=== PATIENT | female | born 1950 | race Two or more races ===

== ENCOUNTER 2019-08-24 09:59 | Inpatient (IN) | payer OTHER ==
[2019-08-24] MEDS ORDERED: ceFAZolin SODIUM 1 GM VIAL ONE ×2 (10:23→17:26)
[2019-08-24] MEDS ORDERED: SODIUM CHLORIDE 0.9% P/F 10 ML VIAL IJ ONE (10:23)
[2019-08-24] MEDS ORDERED: VANCOMYCIN 1,000 MG VIAL (RESTRICTED TO ID ONLY) ONE (10:24)
[2019-08-24] MEDS ORDERED: HEPARIN NA (PORCINE) 5,000 UNITS/ML 1ML VIAL ONE ×2 (11:16→12:45)
[2019-08-24] MEDS ORDERED: THROMBIN (BOVINE) 5,000 UNIT VIAL TP ONE ×2 (11:17→13:40)
[2019-08-24] MEDS ORDERED: DEXAMETHASONE SOD PHOSPHATE/PF 10 MG/ML SDV ONE (11:37)
[2019-08-24] MEDS ORDERED: MIDAZOLAM HCL 2 MG/2 ML SINGLE DOSE VIAL ONE ×2 (11:49)
[2019-08-24] MEDS ORDERED: fentaNYL CITRATE 250 MCG/5 ML VIAL ONE (12:01)
[2019-08-24] MEDS ORDERED: PROPOFOL 20 ML ONE ×11 (12:02→14:19)
[2019-08-24] MEDS ORDERED: ceFAZolin SODIUM 1 GM VIAL IVPB ONE (12:35)
[2019-08-24] MEDS ORDERED: VANCOMYCIN 1,000 MG VIAL (RESTRICTED TO ID ONLY) IVPB ONE (12:35)
[2019-08-24] MEDS ORDERED: HYDROmorphone HCl 2 MG/ML VIAL ONE (12:38)
[2019-08-24] MEDS ORDERED: ACETAMINOPHEN 1000 MG/100 ML VIAL (NON FORMULARY) IVPB ONE (12:49)
[2019-08-24] MEDS ORDERED: ONDANSETRON 4 MG/2 ML VIAL IVPUSH PRN ×2 (12:49→15:43)
[2019-08-24] MEDS ORDERED: LACTATED RINGERS SOLUTION 1,000 ML IV SCH ×2 (13:00→15:45)
[2019-08-24] MEDS ORDERED: TRANEXAMIC ACID 1000 MG/10 ML VIAL ONE (13:02)
[2019-08-24] MEDS ORDERED: ALBUTEROL SO4 HFA INHALER IH ONE (13:19)
[2019-08-24] MEDS ORDERED: BENZOIN/ALOE VERA/STORAX/TOLU 58 ML BOTTLE ONE (14:17)
[2019-08-24] MEDS ORDERED: oxyCODONE HCL 5 MG TABLET PO PRN ×2 (15:43)
--- NOTE | 2019-08-24 15:55 | PN ---
Progress Note (short form) - Note Progress Note: 69F s/p CARLOS ENRIQUE C4-C5 and C5-C6 ACDF POD #0. -Airway observation: In case of emergency, remove anterior cervical spine dressing and pull out running suture; ok to cut suture if needed to decompress hematoma. -Maintain head of bed 30-45 degrees. -Pain medication: per anaesthesia team; oral meds, no CLIENT SERVICE EXECUTIVE; NO NSAID's. -Hard c-collar. -DVT PPx: -Mechanical only: LUIS's, SCD's. -Post-op Ancef x 3 doses. -f/u AM labs. -Incentive spirometry. -PT/OT/Rehab, OOB. -PWB B/L UE: 5lbs. -WBAT B/L LE. -d/c Guillermo catheter at midnight tonight; TOV (8 hours max). -Keep dressing clean & dry. -No heavy lifting (>5 lbs), bending or twisting x 6 months post op. -Start with soft diet; advance diet as tolerated. -B/L UE & LE NV checks. -Care per ICU & medical hospitalist teams. -Discharge planning: f/u [facility] [place] office 09/03/2019; call for appointment; . Ramon Tanner MD (Orthopaedic Surgery).
--- NOTE | 2019-08-24 15:57 | OP ---
Operative Note - Note: Operative Date: 08/24/19 Pre-Operative Diagnosis: 1. C6 radiculopathy. 2. Cervical myelopathy. 3. Segmental instability (spondylolisthesis C5-C6) Operation: 1. CARLOS ENRIQUE C4-C5. 2. C5-C6 ACDF Implants: Cage: RTI Fortilink #[id number]. Plate: Precision Spine Slimplicity 14mm. Screws: 3 x 4.5x12mm, 1 x 4x12mm Post-Operative Diagnosis: Same as Pre-op Surgeon: Ramon Tanner Dustless Operator: Blanco Tanner Anesthesiologist/GAS SYSTEMS WORKER: Diane Orosco Anesthesia: General Specimens Removed: Old hardware. C5-C6 disc Estimated Blood Loss (mls): 50 Drains & Tubes with Location: 1 x deep HemoVac Fluid Volume Replaced (mls): 1,200 (Crystalloid) Operative Report Dictated: Yes
[2019-08-24] MEDS ORDERED: ALBUTEROL SO4 0.083% IH SOL 2.5 MG/3 ML VIAL.NEB. NEB ONE ×2 (16:00→16:28)
[2019-08-24] MEDS ORDERED: ACETAMINOPHEN INJECTION 100 ML IVPB ONE (17:26)
[2019-08-24] MEDS ORDERED: HYDROmorphone *PCA* 10MG/50ML DISP.SYRIN ONE (17:26)
[2019-08-24] MEDS: HYDROmorphone *PCA* 10MG/50ML DISP.SYRIN PCA SCH (17:45)
[2019-08-24] MEDS: CEFAZOLIN 1 GM in DEXTROSE 5%-WATER - 50 ML IVPB SCH (17:55)
--- NOTE | 2019-08-24 19:34 | CONSULT ---
Consultation: REQUESTING PROVIDER: CONSULT REQUEST: We have been asked to medically evaluate this patient for (specify). neuro checks and airway management s/p cervical surgery by Dr. Tanner HISTORY OF PRESENT ILLNESS: 69 y/o F hx of COPD, Asthma, fibromyalgia, GERD diveritulitis, anxiety, HTN, HLD s/p C4-C5 anterior cervical discectomy and fusion, partial corpectomy C5-C6 POD 0. This is her second surgery on her cervical spine after previous surgery 4 years ago for herniated disc s/p injury about 10 years ago. She continued to experience neck pain as well as weakness in her left arm. Prior to this surgery, pt had been managed chronically on pain medication (percocet). She denies any fevers, chills, nausea, vomiting, abscess or swelling in the neck. At time of evaluation patient was sitting up in bed drinking clear fluids. REVIEW OF SYSTEMS: CONSTITUTIONAL: Absent: fever, chills, diaphoresis, generalized weakness, malaise, loss of appetite, weight change HEENT: Absent: rhinorrhea, nasal congestion, throat pain, throat swelling, difficulty swallowing, mouth swelling, ear pain, eye pain, visual changes CARDIOVASCULAR: Absent: chest pain, syncope, palpitations, irregular heart rate, lightheadedness, peripheral edema RESPIRATORY: present: cough Absent: shortness of breath, dyspnea with exertion, orthopnea, wheezing, stridor, hemoptysis GASTROINTESTINAL: Absent: abdominal pain, abdominal distension, nausea, vomiting, diarrhea, constipation, melena, hematochezia GENITOURINARY: Absent: dysuria, frequency, urgency, hesitancy, hematuria, flank pain, genital pain MUSCULOSKELETAL: Absent: myalgia, arthralgia, joint swelling, back pain, neck pain SKIN: Absent: rash, itching, pallor HEMATOLOGIC/IMMUNOLOGIC: Absent: easy bleeding, easy bruising, lymphadenopathy, frequent infections ENDOCRINE: Absent: unexplained weight gain, unexplained weight loss, heat intolerance, cold intolerance NEUROLOGIC: Absent: headache, focal weakness or paresthesias, dizziness, unsteady gait, seizure, mental status changes, bladder or bowel incontinence PSYCHIATRIC: Absent: anxiety, depression, suicidal or homicidal ideation, hallucinations. PHYSICAL EXAMINATION Vital Signs - 24 hr 08/24/19 08/24/19 10:35 18:25 Temperature 98.4 F 96.8 F L Pulse Rate 78 94 H Respiratory 18 16 Rate Blood Pressure 140/72 111/77 O2 Sat by Pulse 94 L Oximetry (%) GENERAL: Awake, alert, and fully oriented. pain is 8/10 HEAD: Normal with no signs of trauma. EYES: Pupils equal, round and reactive to light, extraocular movements intact, sclera anicteric, conjunctiva clear. No lid lag. EARS, NOSE, THROAT: Ears normal, nares patent, oropharynx clear without exudates. Moist mucous membranes. NECK: hard c-collar around neck. wound dressing on anterior neck. no hematoma/swelling noted. LUNGS: rhonchi bilaterally HEART: Regular rate and rhythm, normal S1 and S2 without murmur, rub or gallop. ABDOMEN: Soft, nontender, not distended, normoactive bowel sounds, no guarding, no rebound, no masses. No hepatomegaly or splenomegaly. UPPER EXTREMITIES: 2+ pulses, warm, well-perfused. No cyanosis. No clubbing. Cap refill <2 seconds. No peripheral edema.4/5 strength left. 5/5 strength right LOWER EXTREMITIES: 2+ pulses, warm, well-perfused. No calf tenderness. No peripheral edema.4/5 strength on the left with diminished sensation. 5/5 strength on the right NEUROLOGICAL: Cranial nerves II-XII intact. Normal speech. PSYCHIATRIC: Cooperative. Good eye contact. Appropriate mood and affect. SKIN: Warm, dry, normal turgor, erythema in lower abdominal skin folds bilaterally, no crusting/vesicles observed. Laboratory Results - last 24 hr 08/24/19 08/24/19 10:11 11:40 Blood Type O POSITIVE O POSITIVE Antibody Screen Negative Active Medications Generic Name Dose Route Start Last Admin Trade Name Freq PRN Reason Stop Dose Admin Atorvastatin Calcium 40 mg 08/24/19 22:00 Lipitor - PO HS ERIC Baclofen 10 mg 08/24/19 22:00 Lioresal - PO TID ERIC Fentanyl 50 mcg 08/24/19 12:49 08/24/19 17:00 Sublimaze Injection - IVPUSH 50 mcg [id number] PRN Administration PAIN-PACU ORDER X 4 DOSES ONLY Hydromorphone HCl 10 mg 08/24/19 13:00 08/24/19 17:45 Hydromorphone 10 Mg/50 Ml-Ns FIREWORKS DISPLAY SPECIALIST 08/31/19 12:49 10 mg FIREWORKS DISPLAY SPECIALIST ERIC Administration Protocol Cefazolin Sodium 1 gm/ 50 mls @ 100 mls/hr 08/24/19 18:00 08/24/19 17:55 Dextrose IVPB 08/25/19 06:29 50 mls Q6H ERIC Administration Lactated Ringer's 1,000 mls @ 125 mls/hr 08/24/19 15:45 08/24/19 17:45 Lactated Ringers Solution IV 65 mls ASDIR ERIC Administration Losartan Potassium 25 mg 08/25/19 10:00 Cozaar - PO DAILY ERIC Non-Formulary Medication 600 mg 08/24/19 22:00 Gabapentin [Gabapentin] PO HS ERIC Olanzapine 100 mg 08/24/19 22:00 Zyprexa - PO HS ERIC Ondansetron HCl 4 mg 08/24/19 12:49 Zofran Injection IVPUSH Q6H PRN NAUSEA AND/OR VOMITING Ondansetron HCl 4 mg 08/24/19 15:43 Zofran Injection IVPUSH Q6H PRN NAUSEA AND/OR VOMITING Oxycodone HCl 5 mg 08/24/19 15:43 Roxicodone - PO Q4H PRN PAIN LEVEL 1-5 Oxycodone HCl 10 mg 08/24/19 15:43 Roxicodone - PO 08/25/19 15:42 Q4H PRN PAIN LEVEL 6-10 Primidone 50 mg 08/24/19 22:00 Mysoline - PO HS ERIC Sertraline HCl 100 mg 08/24/19 22:00 Zoloft - PO HS [facility] ASSESSMENT/PLAN: Dispo: We will continue to follow the patient. Thank you for this consultative opportunity. Neuro -Maintain head of bed 30-45 degrees. -Pain medication: per anaesthesia team; oral meds, no FIREWORKS DISPLAY SPECIALIST; NO NSAID's. -Hard c-collar. -Keep dressing clean & dry. -B/L UE & LE NV checks. -No heavy lifting (>5 lbs), bending or twisting x 6 months post op. Pulm -Incentive spirometry -CXR -Duonebs treatment -Sputum culture and legionella antigen a.m labs - ID post-op Ancef x 3 doses per f/u AM labs. -d/c Guillermo catheter at midnight tonight; TOV (8 hours max). MSK -PT/OT/Rehab, OOB. -PWB B/L UE: 5lbs. -WBAT B/L LE. -DVT PPx: Mechanical only: LUIS's, SCD's. FEN -IV fluids as needed -monitor lytes -Start with soft diet; advance diet as tolerated. Visit type - Emergency Visit Emergency Visit: No - New Patient This patient is new to me today: Yes Date on this admission: 08/24/19 - Critical Care Critical Care patient: No ATTENDING PHYSICIAN STATEMENT I saw and evaluated the patient. I reviewed the resident's note and discussed the case with the resident. I agree with the resident's findings and plan as documented. SUBJECTIVE: OBJECTIVE: ASSESSMENT AND PLAN:
[2019-08-24] MEDS ORDERED: ALBUTEROL SO4 2.5/IPRATROPIUM 0.5 INH SOL 3 ML VIAL.NEB. NEB PRN (20:16)
[2019-08-24] MEDS ORDERED: ALBUTEROL SO4 0.083% IH SOL 2.5 MG/3 ML VIAL.NEB. NEB PRN (20:20)
--- NOTE | 2019-08-24 21:04 | HP ---
HISTORY OF PRESENT ILLNESS: 69 F h/o COPD not on O2, Asthma, fibromyalgia, GERD diveritulitis, anxiety, HTN , HLD s/p C4-C5 anterior cervical discectomy and fusion, partial corpectomy C5- C6 POD 0. Patient endorses this is her second surgery for refractory neck and L arm pain, on chronic opioids. She continued to experience neck pain as well as weakness in her left arm. Pt. denies fevers, chills, nausea, vomiting, hard C collar placed. Patient endorses being on Prednisone x3 days for COPDE prophylaxis, has had a cough 2 weeks ago which is mildly productive denies overt SOB/CP. Recent Travel: denies PAST MEDICAL HISTORY: as above PAST SURGICAL HISTORY: C4/C5 disectomy Social History: Smoking: former cigarette smoker Alcohol: denies Drugs: denies Allergies Penicillins Allergy (Intermediate, Verified 08/20/19 09:57) Rash HOME MEDICATIONS: Home Medications Medication Instructions Recorded Atorvastatin Ca [Lipitor] 40 mg PO HS 08/20/19 Baclofen 10 mg PO TID 08/20/19 Gabapentin 600 mg PO HS 08/20/19 Losartan Potassium 25 mg PO DAILY 08/20/19 Olanzapine [Zyprexa] 100 mg PO HS 08/20/19 Oxycodone HCl/Acetaminophen 1 each PO Q6H PRN 08/20/19 [Percocet 10-325 mg Tablet] Primidone 50 mg PO HS 08/20/19 Sertraline HCl [Zoloft -] 100 mg PO HS 08/20/19 Prednisone 10 mg PO DAILY 08/24/19 REVIEW OF SYSTEMS CONSTITUTIONAL: Absent: fever, chills, diaphoresis, generalized weakness, malaise, loss of appetite, weight change HEENT: Absent: rhinorrhea, nasal congestion, throat pain, throat swelling, difficulty swallowing, mouth swelling, ear pain, eye pain, visual changes CARDIOVASCULAR: Absent: chest pain, syncope, palpitations, irregular heart rate, lightheadedness , peripheral edema RESPIRATORY: Absent: cough, shortness of breath, dyspnea with exertion, orthopnea, wheezing, stridor, hemoptysis GASTROINTESTINAL: Absent: abdominal pain, abdominal distension, nausea, vomiting, diarrhea, constipation, melena, hematochezia GENITOURINARY: Absent: dysuria, frequency, urgency, hesitancy, hematuria, flank pain, genital pain MUSCULOSKELETAL: Absent: myalgia, arthralgia, joint swelling, back pain, neck pain SKIN: Absent: rash, itching, pallor HEMATOLOGIC/IMMUNOLOGIC: Absent: easy bleeding, easy bruising, lymphadenopathy, frequent infections ENDOCRINE: Absent: unexplained weight gain, unexplained weight loss, heat intolerance, cold intolerance NEUROLOGIC: L arm pain, neck pain Absent: headache, focal weakness or paresthesias, dizziness, unsteady gait, seizure, mental status changes, bladder or bowel incontinence PSYCHIATRIC: Absent: anxiety, depression, suicidal or homicidal ideation, hallucinations. PHYSICAL EXAMINATION Vital Signs - 24 hr 08/24/19 08/24/19 08/24/19 10:35 15:46 16:00 Temperature 98.4 F 97.7 F Pulse Rate 78 101 H 102 H Respiratory 18 20 15 Rate Blood Pressure 140/72 167/63 163/70 O2 Sat by Pulse 94 L 89 L 92 L Oximetry (%) 08/24/19 08/24/19 08/24/19 16:15 16:30 16:45 Temperature Pulse Rate 97 H 97 H 97 H Respiratory 15 15 16 Rate Blood Pressure 163/71 163/71 159/68 O2 Sat by Pulse 92 L 92 L 94 L Oximetry (%) 08/24/19 08/24/19 18:15 18:25 Temperature 99.1 F 96.8 F L Pulse Rate 89 94 H Respiratory 15 16 Rate Blood Pressure 125/58 L 111/77 O2 Sat by Pulse 94 L Oximetry (%) GA comfortable, hard C collar placed, NAD, AAox3, speaking in full sentences HEENT NC/AT, EOMI, no visible hematoma/swelling of neck, dry MM Chest CTAB, no crackles or wheezing CVS S1, S2+, RRR Abd obese, Soft, NT Ext NO LE edema, no calf tenderness Laboratory Results - last 24 hr 08/24/19 08/24/19 10:11 11:40 Blood Type O POSITIVE O POSITIVE Antibody Screen Negative ASSESSMENT/PLAN: 69 F h/o COPD not on O2, asthma, GERD, chronic cervical radiculopathy s/p C4/C5 disectomy POD 0, now presenting w/ mild pain, but VS show low oxygen saturations despite being on 3L NC. Cervical discectomy and fusion of C4/C5 Keep hard C collar, monitor airway, supplement bowel regimen Pain control w/ PO opioids, monitor breathing Rest of management per surgery recommendations Hypoxemia Good wave form appreciated on O2 sat monitor, still hypoxic 92-93% on 3L, no tachycardia Obtain CXR to rule out PNA, incentive spirometry, hold off abx for now until CXR obtained, send Chem/CBC, ?atelectasis, patient not wheezing right now Duonebs PRN, continue Prednisone 40mg PO to complete 5 day course Continue to monitor in ICU for airway compromise COPD Duonebs PRN Supplement NC 3L O2 Complete Prednisone course to complete 5 days Anxiety/Depression Restart psych meds GERD cont. PPI HTN Restart home BP meds DVT ppx: LUIS/SCD FEN: gentle IVF, chem daily, Na restricted diet Family Medical History Family History: Denies Visit type - Emergency Visit Emergency Visit: No - New Patient This patient is new to me today: Yes Date on this admission: 08/24/19 - Critical Care Critical Care patient: Yes Total Critical Care Time (in minutes): 30 Critical Care Statement: The care of this patient involved high complexity decision making to prevent further life threatening deterioration of the patient 's condition and/or to evaluate & treat vital organ system(s) failure or risk of failure.
[2019-08-24] MEDS ORDERED: PT OWN MED DRAWER 7, Y5N ONE (21:05)
[2019-08-24] MEDS ORDERED: OLANZapine 5 MG TABLET PO SCH (22:00)
[2019-08-24] MEDS ORDERED: SERTRALINE HCL 50 MG TABLET (FP) PO SCH (22:00)
[2019-08-24] MEDS ORDERED: GABAPENTIN 300 MG CAPSULE PO SCH (22:00)
[2019-08-24] MEDS ORDERED: ATORVASTATIN CA 40 MG TABLET (FP) PO SCH (22:00)
[2019-08-24] MEDS ORDERED: PRIMIDONE 50 MG TABLET PO SCH (22:00)
[2019-08-24] MEDS ORDERED: PATIENT'S OWN MEDICATION (NON-FORMULARY) (Gabapentin [Gabapentin] 600 MG) PO SCH (22:00)
[2019-08-24] MEDS: POLYETHYLENE GLYCOL 3350 119 GM BTL PO SCH (22:23)
[2019-08-24] MEDS: DOCUSATE SODIUM 100 MG CAPSULE (FP) PO SCH (22:24)
[2019-08-24] MEDS: BACLOFEN 10 MG TABLET (FP) PO SCH (22:25)
[2019-08-24] MEDS: NYSTATIN 100000 UNIT/GM TOPICAL OINTMENT 15 GM TUBE TP SCH (22:25)
[2019-08-25] MEDS: CEFAZOLIN 1 GM in DEXTROSE 5%-WATER - 50 ML IVPB SCH ×2 (00:03→05:15)
[2019-08-25] MEDS: predniSONE 20 MG TABLET (UD) PO SCH ×2 (00:07→09:14)
[2019-08-25] MEDS ORDERED: ZOLPIDEM TARTRATE 5 MG TABLET PO PRN (00:16)
[2019-08-25] MEDS ORDERED: ceFAZolin SODIUM 1 GM VIAL ONE (05:13)
[2019-08-25] MEDS ORDERED: DEXTROSE 5%-WATER - 50 ML IVPB ONE (05:13)
[2019-08-25] MEDS: BACLOFEN 10 MG TABLET (FP) PO SCH ×3 (05:16→21:54)
[2019-08-25 06:50] LABS: BASO % 0.4 % (0-2.0); HEMATOCRIT 39.8 % (32.4-45.2); HEMOGLOBIN 12.8 GM/dL (10.7-15.3); LYMPH % 7.4 % (8-40); MCH 28.8 pg (25.7-33.7); MCHC 32.3 g/dl (32.0-36.0); MEAN CELL VOLUME 89.1 fl (80-96); MEAN PLT VOLUME 9.2 fl (7.5-11.1); MONO % 2.3 % (3.8-10.2); NEUT % 89.9 % (42.8-82.8); PLATELET COUNT 323 K/MM3 (134-434); RBC 4.47 M/mm3 (3.60-5.2); RDW 15.4 % (11.6-15.6); WHITE BLOOD COUNT 15.5 K/mm3 (4.0-10.0)
[2019-08-25 07:26] LABS: BILIRUBIN,TOTAL 0.1 mg/dL (0.2-1); CALCIUM 8.3 mg/dL (8.5-10.1); CREATININE 0.9 mg/dL (0.55-1.3); MAGNESIUM 2.2 mg/dL (1.8-2.4); PHOSPHOROUS 4.4 mg/dL (2.5-4.9); POTASSIUM 4.6 mmol/L (3.5-5.1); TOT PROT 6.6 g/dl (6.4-8.2)
[2019-08-25] MEDS ORDERED: PT OWN MED DRAWER 7, Y5N ONE ×3 (09:12→21:22)
[2019-08-25] MEDS: POLYETHYLENE GLYCOL 3350 119 GM BTL PO SCH (09:14)
[2019-08-25] MEDS: DOCUSATE SODIUM 100 MG CAPSULE (FP) PO SCH ×2 (09:14→21:53)
[2019-08-25] MEDS: NYSTATIN 100000 UNIT/GM TOPICAL OINTMENT 15 GM TUBE TP SCH ×2 (09:20→21:55)
[2019-08-25] MEDS: HYDROmorphone *PCA* 10MG/50ML DISP.SYRIN PCA SCH ×2 (09:26→13:24)
[2019-08-25] MEDS ORDERED: LOSARTAN POTASSIUM 25 MG TABLET PO SCH (10:00)
--- NOTE | 2019-08-25 11:42 | PN ---
Physical Exam: 69 F h/o COPD not on O2, Asthma, fibromyalgia, GERD diveritulitis, anxiety, HTN , HLD s/p C4-C5 anterior cervical discectomy and fusion, partial corpectomy C5- C6 POD 1. Patient endorses pain controlled, comfortable, O2 sat picked up after incentive spirometry, CXR neg. for PNA. Doing well. GA comfortable, hard C collar placed, NAD, AAox3, speaking in full sentences HEENT NC/AT, EOMI, no visible hematoma/swelling of neck, dry MM Chest CTAB, no crackles or wheezing CVS S1, S2+, RRR Abd obese, Soft, NT Ext NO LE edema, no calf tenderness Vital Signs - 24 hr 08/24/19 08/24/19 08/24/19 15:46 16:00 16:15 Temperature 97.7 F Pulse Rate 101 H 102 H 97 H Respiratory 20 15 15 Rate Blood Pressure 167/63 163/70 163/71 O2 Sat by Pulse 89 L 92 L 92 L Oximetry (%) 08/24/19 08/24/19 08/24/19 16:30 16:45 17:00 Temperature Pulse Rate 97 H 97 H 96 H Respiratory 15 16 17 Rate Blood Pressure 163/71 159/68 151/65 O2 Sat by Pulse 92 L 94 L 94 L Oximetry (%) 08/24/19 08/24/19 08/24/19 17:15 17:30 17:45 Temperature Pulse Rate 97 H 97 H 97 H Respiratory 13 15 16 Rate Blood Pressure 140/69 146/69 129/82 O2 Sat by Pulse 94 L 95 95 Oximetry (%) 08/24/19 08/24/19 08/24/19 18:00 18:15 18:25 Temperature 99.1 F 96.8 F L Pulse Rate 93 H 89 94 H Respiratory 13 15 16 Rate Blood Pressure 128/58 L 128/58 L 111/77 O2 Sat by Pulse 94 L 93 L Oximetry (%) 08/24/19 08/24/19 08/24/19 20:00 21:00 21:40 Temperature Pulse Rate 86 94 H Respiratory 20 18 Rate Blood Pressure 124/70 115/66 O2 Sat by Pulse 96 93 L Oximetry (%) 08/24/19 08/25/19 08/25/19 22:00 00:00 02:00 Temperature 97 F L Pulse Rate 95 H 81 82 Respiratory 18 14 26 H Rate Blood Pressure 127/69 129/67 130/69 O2 Sat by Pulse 94 L Oximetry (%) 08/25/19 08/25/19 08/25/19 04:00 06:00 08:00 Temperature 98.2 F 98.4 F Pulse Rate 79 89 82 Respiratory 17 12 17 Rate Blood Pressure 122/63 112/50 L 110/60 O2 Sat by Pulse 79 L 95 Oximetry (%) 08/25/19 08/25/19 08/25/19 08:13 09:56 10:00 Temperature 98.1 F Pulse Rate 83 63 Respiratory 18 12 Rate Blood Pressure 125/67 125/67 O2 Sat by Pulse 95 94 L Oximetry (%) Laboratory Results - last 24 hr 08/24/19 08/25/19 08/25/19 11:40 06:03 06:03 WBC 15.5 H RBC 4.47 Hgb 12.8 Hct 39.8 MCV 89.1 MCH 28.8 MCHC 32.3 RDW 15.4 Plt Count 323 MPV 9.2 Absolute Neuts (auto) 13.9 H Neutrophils % 89.9 H Lymphocytes % 7.4 L Monocytes % 2.3 L Eosinophils % 0.0 Basophils % 0.4 Nucleated RBC % 0 Sodium 138 Potassium 4.6 Chloride 104 Carbon Dioxide 26 Anion Gap 8 BUN 13.0 Creatinine 0.9 Est GFR (CKD-EPI)AfAm 76.14 Est GFR (CKD-EPI)NonAf 65.70 Random Glucose 171 H Calcium 8.3 L Phosphorus 4.4 Magnesium 2.2 Total Bilirubin 0.1 L AST 21 ALT 19 Alkaline Phosphatase 89 Total Protein 6.6 Albumin 3.0 L Blood Type O POSITIVE Current Medications Generic Name Dose Route Start Last Admin Trade Name Freq PRN Reason Stop Dose Admin Albuterol Sulfate 1 amp 08/24/19 20:20 08/25/19 04:00 Ventolin 0.083% Nebulizer Soln - NEB 1 amp Q4H PRN Administration SHORT OF BREATH/WHEEZING Albuterol/Ipratropium 1 amp 08/24/19 20:16 Duoneb - NEB Q4H PRN SHORTNESS OF BREATH Atorvastatin Calcium 40 mg 08/24/19 22:00 08/24/19 22:24 Lipitor - PO 40 mg HS ERIC Administration Baclofen 10 mg 08/24/19 22:00 08/25/19 05:16 Lioresal - PO 10 mg TID ERIC Administration Docusate Sodium 100 mg 08/24/19 22:00 08/25/19 09:14 Colace - PO 100 mg BID ERIC Administration Fentanyl 50 mcg 08/24/19 20:06 Sublimaze Injection - IVPUSH Q5M PRN PAIN-PACU ORDER X 4 DOSES ONLY Gabapentin 600 mg 08/24/19 22:00 08/24/19 23:00 Neurontin - PO 600 mg HS ERIC Administration Hydromorphone HCl 10 mg 08/24/19 13:00 08/25/19 09:26 Hydromorphone 10 Mg/50 Ml-Ns MANUSCRIPT EDITOR 08/31/19 12:49 10 mg MANUSCRIPT EDITOR ERIC Administration Protocol Lactated Ringer's 1,000 mls @ 125 mls/hr 08/24/19 15:45 08/24/19 17:45 Lactated Ringers Solution IV 65 mls ASDIR ERIC Administration Losartan Potassium 25 mg 08/25/19 10:00 08/25/19 09:14 Cozaar - PO 25 mg DAILY ERIC Administration Nystatin 1 applic 08/24/19 22:00 08/25/19 09:20 Mycostatin Ointment - TP 1 applic BID ERIC Administration Olanzapine 100 mg 08/24/19 22:00 Zyprexa - PO HS [facility] Ondansetron HCl 4 mg 08/24/19 12:49 Zofran Injection IVPUSH Q6H PRN NAUSEA AND/OR VOMITING Ondansetron HCl 4 mg 08/24/19 15:43 Zofran Injection IVPUSH Q6H PRN NAUSEA AND/OR VOMITING Oxycodone HCl 5 mg 08/24/19 15:43 Roxicodone - PO Q4H PRN PAIN LEVEL 1-5 Oxycodone HCl 10 mg 08/24/19 15:43 Roxicodone - PO 08/25/19 15:42 Q4H PRN PAIN LEVEL 6-10 Polyethylene Glycol 17 gm 08/24/19 20:30 08/25/19 09:14 Miralax (For Daily Use) - PO 17 grams DAILY ERIC Administration Prednisone 40 mg 08/24/19 23:58 08/25/19 09:14 Deltasone - PO 40 mg DAILY ERIC Administration Primidone 50 mg 08/24/19 22:00 08/24/19 22:25 Mysoline - PO 50 mg HS ERIC Administration Sertraline HCl 100 mg 08/24/19 22:00 08/24/19 22:27 Zoloft - PO 100 mg HS ERIC Administration 69 F h/o COPD not on O2, Asthma, fibromyalgia, GERD diveritulitis, anxiety, HTN , HLD s/p C4-C5 anterior cervical discectomy and fusion, partial corpectomy C5- C6 POD 1. Patient endorses pain controlled, comfortable, O2 sat picked up after incentive spirometry, CXR neg. for PNA. Doing well. Cervical discectomy and fusion of C4/C5 Keep hard C collar, monitor airway, supplement bowel regimen Pain control w/ PO opioids, monitor breathing Rest of management per surgery recommendations Hypoxemia Improved with spirometry, CXR neg. for PNA, cont. to monitor Likely due to underlying COPD, atelectasis Duonebs PRN, continue Prednisone 40mg PO to complete 5 day course COPD Duonebs PRN Supplement NC 3L O2 Complete Prednisone course to complete 5 days Anxiety/Depression Restart psych meds Nicotine dependence NRT PRN GERD cont. PPI HTN Restart home BP meds DVT ppx: LUIS/SCD FEN: gentle IVF, chem daily, Na restricted diet Visit type - Emergency Visit Emergency Visit: No - New Patient This patient is new to me today: No - Critical Care Critical Care patient: Yes Total Critical Care Time (in minutes): 30 Critical Care Statement: The care of this patient involved high complexity decision making to prevent further life threatening deterioration of the patient 's condition and/or to evaluate & treat vital organ system(s) failure or risk of failure. - Discharge Referral Referred to [facility] Med [facility] No
--- NOTE | 2019-08-25 13:29 | PN ---
Teaching Attending Note Name of Resident: Adolfo Golden ATTENDING PHYSICIAN STATEMENT I saw and evaluated the patient. I reviewed the resident's note and discussed the case with the resident. I agree with the resident's findings and plan as documented. SUBJECTIVE: Pt seen and examined in the ICU. c/o incisional pain. Reports flatus, tolerating PO. Guillermo out. OBJECTIVE: Vital Signs Period Temp Pulse Resp BP Sys/Murray Pulse Ox Last 24 Hr 96.8 F-99.1 F 63-102 12-26 110-167/50-82 79-96 Intake & Output 08/22/19 08/23/19 08/24/19 08/25/19 23:59 23:59 23:59 23:59 Intake Total 1715 1800 Output Total 1050 1510 Balance 665 290 Weight 74.389 kg Gen: NAD at rest Heart: RRR Lung: decreased breath sounds at the bases Abd: soft, nontender Ext: no edema CBC, BMP 08/25/19 06:03 08/25/19 06:03 Active Medications Albuterol Sulfate (Ventolin 0.083% Nebulizer Soln -) 1 amp NEB Q4H PRN PRN Reason: SHORT OF BREATH/WHEEZING Last Admin: 08/25/19 04:00 Dose: 1 amp Albuterol/Ipratropium (Duoneb -) 1 amp NEB Q4H PRN PRN Reason: SHORTNESS OF BREATH Atorvastatin Calcium (Lipitor -) 40 mg PO HS [facility] Last Admin: 08/24/19 22:24 Dose: 40 mg Baclofen (Lioresal -) 10 mg PO TID [facility] Last Admin: 08/25/19 05:16 Dose: 10 mg Docusate Sodium (Colace -) 100 mg PO BID [facility] Last Admin: 08/25/19 09:14 Dose: 100 mg Fentanyl (Sublimaze Injection -) 50 mcg IVPUSH Q5M PRN PRN Reason: PAIN-PACU ORDER X 4 DOSES ONLY Gabapentin (Neurontin -) 600 mg PO HS [facility] Last Admin: 08/24/19 23:00 Dose: 600 mg Hydromorphone HCl (Hydromorphone 10 Mg/50 Ml-Ns) 10 mg QUALITY ASSURANCE SUPERVISOR BODY QUALITY ASSURANCE SUPERVISOR BODY [facility]; Protocol Stop: 08/31/19 12:49 Last Admin: 08/25/19 13:24 Dose: Not Given Losartan Potassium (Cozaar -) 25 mg PO DAILY [facility] Last Admin: 08/25/19 09:14 Dose: 25 mg Nystatin (Mycostatin Ointment -) 1 applic TP BID [facility] Last Admin: 08/25/19 09:20 Dose: 1 applic Olanzapine (Zyprexa -) 100 mg PO HS [facility] Ondansetron HCl (Zofran Injection) 4 mg IVPUSH Q6H PRN PRN Reason: NAUSEA AND/OR VOMITING Ondansetron HCl (Zofran Injection) 4 mg IVPUSH Q6H PRN PRN Reason: NAUSEA AND/OR VOMITING Oxycodone HCl (Roxicodone -) 5 mg PO Q4H PRN PRN Reason: PAIN LEVEL 1-5 Oxycodone HCl (Roxicodone -) 10 mg PO Q4H PRN PRN Reason: PAIN LEVEL 6-10 Stop: 08/25/19 15:42 Polyethylene Glycol (Miralax (For Daily Use) -) 17 gm PO DAILY [facility] Last Admin: 08/25/19 09:14 Dose: 17 grams Prednisone (Deltasone -) 40 mg PO DAILY [facility] Last Admin: 08/25/19 09:14 Dose: 40 mg Primidone (Mysoline -) 50 mg PO [facility] Last Admin: 08/24/19 22:25 Dose: 50 mg Senna (Senna -) 1 tab PO BID [facility] Sertraline HCl (Zoloft -) 100 mg PO HS [facility] Last Admin: 08/24/19 22:27 Dose: 100 mg ASSESSMENT AND PLAN: Cervical Stenosis with Radiculopathy and Myelopathy s/p CARLOS ENRIQUE C4-C5/C5-C6 ACDF Asthma/COPD HTN Hyperlipidemia Fibromyalgia Anxiety GERD - pain control - incentive spirometry - PO as tolerated - on empiric prednisone - inhaled bronchodilators - O2 to keep SpO2 >90% - rehab/PT - DVT prophylaxis - can monitor on floor
[2019-08-25] MEDS: SENNOSIDES 8.6MG TABLET (FP) PO SCH ×2 (13:59→21:54)
--- NOTE | 2019-08-25 15:56 | OP ---
DATE OF OPERATION: 08/24/2019 SURGEON: Ramon Tanner MD COMBINE INSPECTOR: Blanco Tanner MD PREOPERATIVE DIAGNOSIS: 1. C5-C6 intervertebral disk disorder and adjacent level disease. 2. C5-C6 spinal stenosis. 3. Segmental instability. 4. Previous C4-C5 ACDF. POSTOPERATIVE DIAGNOSIS: 1. C5-C6 intervertebral disk disorder and adjacent level disease. 2. C5-C6 spinal stenosis. 3. Segmental instability. 4. Previous C4-C5 ACDF. SURGICAL PROCEDURE: 1. Removal of hardware. (05559) 2. Inspection of hard fusion mass. (58331) 3. C5-C6 discectomy & anterior arthrodesis. (24465) 4. C5, C6 partial corpectomies. (49077, 38171) 5. Insertion of biomechanical device C5-C6. (02133) 6. C5-C6 anterior instrumentation. (27837) 7. Bone autograft. (25864) 8. Bone allograft. (40490) 9. Microsurgical dissection. (60034) FINDINGS: Solid C4-C5 fusion. IMPLANTS: 1. Cage: FortiLink Tetrafuse #8. 2. Plate: Precision Spine Simplicity 14 mm. 3. Screws: 3 x 4.5x12mm, 1 x 4x12mm. ANESTHESIOLOGIST: Chelsie Garner MD ANESTHESIA: General endotracheal tube anesthesia; Kefzol 2 g, Ancef 1 g and vancomycin, 10 mg of Decadron. POSITION: Supine. INCISION: Right oblique anterior. ESTIMATED BLOOD LOSS: 50cc. INTRAVENOUS FLUID: Crystalloid, 1.2L. SPECIMENS: C5-C6 disc. DRAINS: 1 x deep HemoVac. COMPLICATIONS: None. URINE OUTPUT: See anesthesia record. BACTERIOLOGY: None. CLOSURE: 2-0 Vicryl and 3-0 Biosyn absorbable suture. INDICATIONS: The patient is a 69-year-old female who was indicated for anterior cervical decompression and instrumented fusion to ameliorate symptoms associated with the above-listed diagnoses. The patient was identified in the holding area by her arm band. A long discussion was held with the patient regarding the risks, benefits, and alternatives of the above-named procedure. The risks include, but are not limited to: Pain, bleeding, infection, damage to surrounding structures (including nerves, blood vessels, skin, ligaments, tendons, and bone), dysphagia, dysphonia, nerve palsy, wound complications, pseudarthrosis, failure of fusion, failure of hardware/implants/reduction, need for further surgery, blood clots, myocardial infarction, pulmonary embolism, cerebrovascular event, anesthesia complications, neurological injury, loss of function, and . Benefits as mentioned above. Alternatives include no surgery. All questions were answered. The patient understood and agreed to the procedure. Informed consent was obtained, witnessed, and verified. The patient was taken to the operating room after being seen by the anesthesia and nursing staff. PROCEDURE: The patient was brought into the operating room, placed on the OR table and secured with a safety strap. Consent and the operative site was again verified with the patient and nursing and anesthesia staff. Anesthesia was then administered without complications including 2 g of IV Ancef , 1 g of IV vancomycin, and 1 g of TXA. A time-out was then done led by , the attending surgeon. Baseline IOM readings revealed poor signal amplitudes in the patient's upper and lower extremities. The patient was positioned in the supine position with arms tucked and placed under gentle traction using tape over her shoulders. All bony prominences were very well padded. A bump was placed beneath the scapulae to facilitate extension of the patients neck. A C-arm fluoroscopy unit was positioned perpendicularly to the table and maintained at the level of the head, except when needed. The intended surgical level was confirmed using fluoroscopy, and a deep neck crease in the lines of Bob at this level was targeted for incision. Intra-operative neural monitoring revealed significant improvement in post- positional IOM readings. The operative site was then prepped and draped in the standard sterile fashion using betadine prep and scrub, wiped off with alcohol, and Duraprep applied. Pre-operative imaging was available for intra-operative evaluation. Time-out was again done, and the case began. An oblique anterior incision was made on the right side of the patients neck in the lines of Bob in standard fashion. This was above the original scar, which was on the left side of the anterior neck. Dissection was carried through the investing layer of fascia and finger palpation was used to create a plane lateral to the strap muscles between the carotid sheath and the viscera. Next, the esophagus and trachea were visualized as was the carotid sheath. Hand-held retractors were used to retract these structures safely out of the way , allowing direct access to the anterior cervical spine. The previously placed anterior plate was identified. The prevertebral fascia overlying the anterior cervical spine was then split using peanut swabs. Fibrous tissue overlying the plate was also split using peanut swabs. The anesthesia team then placed a nasogastric tube without difficulty. Gastric juice was successfully aspirated, confirming correct placement of the NG tube. This kept the stomach empty, and allowed us to place the patient in a slight Trendelenburg position. Next, the medial borders of the Longus Coli musculature were gently released over the anterolateral borders of the vertebral bodies and disc spaces using monopolar electrocautery. A self-retaining retractor system was used with the teeth of the blades retracting the belly of the longus coli muscles, and with the retractors themselves safely retracting the carotid sheath laterally and viscera medially. The disk below the plate was identified. There was abundant anterior osteophyte that had grown over the disk space. This osteophyte was resected using a Leksell rongeur. Despite using 2 different screw-removal sets, we did not have a screwdriver that fit the screws fixed within the plate. This was an old instrumentation system. In order to extricate the plate and screws, we used a [employer] Gregg andre with a cadmium cutter andre tip. The soft tissues of the neck were protected with cottonoid's to minimize staining with metal debris. The plate was cut into 4 pieces, each containing a screw. All hardware was then successfully removed using needle drivers. There was no local bone loss or tissue damage during this procedure. The tip of the andre was continuously cooled using saline irrigation throughout use. No neuromonitoring changes noted. The holes from the C4 amd C5 screws were plugged with bone wax. One 12mm Belfry pin was then placed into the center of the vertebral bodies of C5 and C6. A Belfry pin distractor system was applied with no distraction at this stage. Additionally, the distractor barrels served as superior and inferior soft tissue retractors. The microscope was then introduced. Using monopolar electrocautery, the annulus of the C5-C6 disc was incised. The disc was morselized using a curette and excised using a pituitary rongeur. Next, a 40mm smooth rylee-tipped andre was used to perform partial corpectomies of the caudal C5 vertebral body and the cephalad C6 vertebral body. This was necessary to facilitate adequate exposure and decompression of the spinal cord. Continuous cold saline solution was utilized throughout all andre work. The resection of most remaining bone was achieved utilizing Kerrison rongeur upcuts. The posterior longitudinal ligament was left intact to preserve ligamentotaxis. There was no evidence of ossification of the posterior longitudinal ligament ( OPLL). IOM readings showed improvements from baseline. The ball-tipped probe was also used to ensure that the bilateral C5-C6 neuroforaminae were patent. Our decompression of the cervical spine was successfully achieved. At this point, gentle distraction was applied to the Belfry pin distractor. Next, trial implants were placed into the defect space and a size 8 RTI Fortilink Tetrafuse cage was then selected to fit the distracted space. The cage was filled with a combination of autologous bone shavings and demineralized bone matrix allograft putty. The cage was then gently tapped into position. This completed the anterior arthrodesis. Belfry pin distraction was released, allowing ligamentotaxis to provide a snug interference fit of the cage. This was ensured by using a cage-monae. The C5 and C6 Belfry pins were removed. The holes from the Belfry pins at C5 and C6, were plugged with demineralized bone matrix putty combined with morselized autograft bone. A 14-mm plate was utilized with 2 proximal and 2 distal screws measuring 12 mm to provide solid fixation. This, too, was demonstrated with a plate-monae once all instrumentation was satisfactorily seated. The screws were then locked using the plate-screw locking mechanism. Fluoroscopic images in the AP and lateral plane showed implants to be in good position and with good overall alignment of the cervical spine. The anesthesiologist then performed a Valsalva maneuver up to 40mmHg. There was no evidence of dural defect, cerebrospinal fluid leak, or uncontrollable bleeding. Throughout the case, copious irrigation was performed, and hemostasis was assured. Due to a small trickling reaccumulation of venous blood within the wound, a deep 1/8 HemoVac drain was placed and brought out through the right side of the neck, adjacent to the apex of the incision. The wound was closed primarily using 2-0 Vicryl and 3-0 Biosyn sutures. A sterile compressive dressing was applied. Sponge and needle counts were correct at the end of the case, and I, the attending surgeon, was present and scrubbed throughout the case. The patient was then extubated by the anesthesia staff without incident or complications and was then transferred to the recovery room in stable condition having tolerated the procedure well. OVERALL COMMENTS: Overall difficult case, but the case went well. IOM signals improved from baseline at the end of the case. MD LEROY An/[id number] MTDD
--- NOTE | 2019-08-25 17:43 | PN ---
Physical Exam: SUBJECTIVE: Patient seen and examined in the morning. Patient was admitted to ICU yesterday. No events on cardiac monitoring. No acute events overnight. POD#1. Patient passed gas in the morning, is tolerating diet. Complains of pain in the surgical site, but no chest pain, shortness of breath, abdominal pain, nausea, vomiting, fever, chills. OBJECTIVE: Vital Signs Period Temp Pulse Resp BP Sys/Murray Pulse Ox Last 24 Hr 96.8 F-99.1 F 51-97 12-26 110-146/50-96 79-96 GENERAL: The patient is awake, alert, and fully oriented, in no acute distress. HEAD: Normal with no signs of trauma. Cervical collar in place. EYES: PERRL, extraocular movements intact, sclera anicteric, conjunctiva clear. ENT: Ears normal, nares patent, oropharynx clear without exudates, moist mucous membranes. NECK: Trachea midline, full range of motion, supple. LUNGS: Breath sounds equal, clear to auscultation bilaterally, no wheezes, no crackles, no accessory muscle use. HEART: Regular rate and rhythm, S1, S2 without murmur, rub or gallop. ABDOMEN: Soft, nontender, nondistended, normoactive bowel sounds, no guarding, no rebound, no hepatosplenomegaly, no masses. EXTREMITIES: 2+ pulses, warm, well-perfused, no edema. Full ROM in upper and lower extremities. NEUROLOGICAL: Cranial nerves II through XII grossly intact. Sensation in tact in upper and lower extremities. PSYCH: Normal mood, normal affect. SKIN: Warm, dry, normal turgor, no rashes or lesions noted Laboratory Results - last 24 hr 08/25/19 08/25/19 06:03 06:03 WBC 15.5 H RBC 4.47 Hgb 12.8 Hct 39.8 MCV 89.1 MCH 28.8 MCHC 32.3 RDW 15.4 Plt Count 323 MPV 9.2 Absolute Neuts (auto) 13.9 H Neutrophils % 89.9 H Lymphocytes % 7.4 L Monocytes % 2.3 L Eosinophils % 0.0 Basophils % 0.4 Nucleated RBC % 0 Sodium 138 Potassium 4.6 Chloride 104 Carbon Dioxide 26 Anion Gap 8 BUN 13.0 Creatinine 0.9 Est GFR (CKD-EPI)AfAm 76.14 Est GFR (CKD-EPI)NonAf 65.70 Random Glucose 171 H Calcium 8.3 L Phosphorus 4.4 Magnesium 2.2 Total Bilirubin 0.1 L AST 21 ALT 19 Alkaline Phosphatase 89 Total Protein 6.6 Albumin 3.0 L Active Medications Generic Name Dose Route Start Last Admin Trade Name Freq PRN Reason Stop Dose Admin Albuterol Sulfate 1 amp 08/24/19 20:20 08/25/19 04:00 Ventolin 0.083% Nebulizer Soln - NEB 1 amp Q4H PRN Administration SHORT OF BREATH/WHEEZING Albuterol/Ipratropium 1 amp 08/24/19 20:16 Duoneb - NEB Q4H PRN SHORTNESS OF BREATH Atorvastatin Calcium 40 mg 08/24/19 22:00 08/24/19 22:24 Lipitor - PO 40 mg HS ERIC Administration Baclofen 10 mg 08/24/19 22:00 08/25/19 13:59 Lioresal - PO 10 mg TID ERIC Administration Docusate Sodium 100 mg 08/24/19 22:00 08/25/19 09:14 Colace - PO 100 mg BID ERIC Administration Fentanyl 50 mcg 08/24/19 20:06 Sublimaze Injection - IVPUSH Q5M PRN PAIN-PACU ORDER X 4 DOSES ONLY Gabapentin 600 mg 08/24/19 22:00 08/24/19 23:00 Neurontin - PO 600 mg HS ERIC Administration Hydromorphone HCl 10 mg 08/24/19 13:00 08/25/19 13:24 Hydromorphone 10 Mg/50 Ml-Ns SAP FUNCTIONAL ANALYST 08/31/19 12:49 Not Given SAP FUNCTIONAL ANALYST [facility] Protocol Losartan Potassium 25 mg 08/25/19 10:00 08/25/19 09:14 Cozaar - PO 25 mg DAILY ERIC Administration Nystatin 1 applic 08/24/19 22:00 08/25/19 09:20 Mycostatin Ointment - TP 1 applic BID ERIC Administration Olanzapine 100 mg 08/24/19 22:00 Zyprexa - PO HS ERIC Ondansetron HCl 4 mg 08/24/19 12:49 Zofran Injection IVPUSH Q6H PRN NAUSEA AND/OR VOMITING Ondansetron HCl 4 mg 08/24/19 15:43 Zofran Injection IVPUSH Q6H PRN NAUSEA AND/OR VOMITING Oxycodone HCl 5 mg 08/24/19 15:43 Roxicodone - PO Q4H PRN PAIN LEVEL 1-5 Polyethylene Glycol 17 gm 08/24/19 20:30 08/25/19 09:14 Miralax (For Daily Use) - PO 17 grams DAILY ERIC Administration Prednisone 40 mg 08/24/19 23:58 08/25/19 09:14 Deltasone - PO 40 mg DAILY ERIC Administration Primidone 50 mg 08/24/19 22:00 08/24/19 22:25 Mysoline - PO 50 mg HS ERIC Administration Senna 1 tab 08/25/19 13:00 08/25/19 13:59 Senna - PO 1 tab BID ERIC Administration Sertraline HCl 100 mg 08/24/19 22:00 08/24/19 22:27 Zoloft - PO 100 mg HS ERIC Administration ASSESSMENT/PLAN: 69F PMH COPD, Asthma, fibromyalgia, GERD, diverticulitis, anxiety, HTN, HLD s/p C4-C5 anterior cervical discectomy and fusion, partial corpectomy C5-C6 POD #1 Neuro: -Maintain head of bed 30-45 degrees. -Patient has pain managed by SAP FUNCTIONAL ANALYST pump. -Hard C-Collar in place -Dressing is clean, dry. Drain in place and actively filling. -No heavy lifting (>5 lbs), bending or twisting x6 months post op as per Ortho recommendations. Pulm -Patient is satting well on 2L NC -Incentive spirometer at bedside -Chest x-ray did not show any infiltrates. Poor inspiratory effort. -Duonebs -Follow up sputum culture -Legionella negative Cardio -Stable -No events on cardiac monitoring ID -Elevated WBC likely due to surgery. Will continue to monitor off antibiotics -Chest X-ray did not show any infiltrates. Poor inspiratory effort /GI -Patient tolerating diet. -Passing gas -On bowel regimen of colace, senna, MSK -PT/OT Rehab, OOB to chair DVT PPx: SCDs F: Oral hydration E: Monitor CMP N: Soft diet Dispo: Transfer to Med/Surg Visit type - Emergency Visit Emergency Visit: Yes ED Registration Date: 08/24/19 Care time: The patient presented to the Emergency Department on the above date and was hospitalized for further evaluation of their emergent condition. - New Patient This patient is new to me today: Yes Date on this admission: 08/25/19 - Critical Care Critical Care patient: Yes Total Critical Care Time (in minutes): 45 Critical Care Statement: The care of this patient involved high complexity dec ision making to prevent further life threatening deterioration of the patient's condition and/or to evaluate & treat vital organ system(s) failure or risk of failure. ATTENDING PHYSICIAN STATEMENT I saw and evaluated the patient. I reviewed the resident's note and discussed the case with the resident. I agree with the resident's findings and plan as documented. SUBJECTIVE: OBJECTIVE: ASSESSMENT AND PLAN:
[2019-08-25] MEDS ORDERED: HYDROmorphone *PCA* 10MG/50ML DISP.SYRIN PCA SCH (18:28)
[2019-08-25] MEDS ORDERED: ONDANSETRON 4 MG/2 ML VIAL IVPUSH PRN ×2 (18:28)
[2019-08-25] MEDS ORDERED: ALBUTEROL SO4 2.5/IPRATROPIUM 0.5 INH SOL 3 ML VIAL.NEB. NEB PRN (18:28)
[2019-08-25] MEDS ORDERED: ALBUTEROL SO4 0.083% IH SOL 2.5 MG/3 ML VIAL.NEB. NEB PRN (18:28)
[2019-08-25] MEDS: GABAPENTIN 300 MG CAPSULE PO SCH (21:53)
[2019-08-25] MEDS: SERTRALINE HCL 50 MG TABLET (FP) PO SCH (21:53)
[2019-08-25] MEDS: PRIMIDONE 50 MG TABLET PO SCH (21:54)
[2019-08-25] MEDS: ATORVASTATIN CA 40 MG TABLET (FP) PO SCH (21:54)
[2019-08-25] MEDS ORDERED: OLANZapine 5 MG TABLET PO SCH (22:00)
[2019-08-26] MEDS: BACLOFEN 10 MG TABLET (FP) PO SCH ×3 (06:18→21:10)
[2019-08-26] MEDS: oxyCODONE HCL 5 MG TABLET PO PRN ×5 (06:19→21:08)
[2019-08-26] MEDS: predniSONE 20 MG TABLET (UD) PO SCH (09:46)
[2019-08-26] MEDS: DOCUSATE SODIUM 100 MG CAPSULE (FP) PO SCH ×2 (09:46→21:09)
[2019-08-26] MEDS: LOSARTAN POTASSIUM 25 MG TABLET PO SCH (09:46)
[2019-08-26] MEDS: SENNOSIDES 8.6MG TABLET (FP) PO SCH ×2 (09:46→21:09)
[2019-08-26] MEDS: POLYETHYLENE GLYCOL 3350 119 GM BTL PO SCH (09:47)
[2019-08-26] MEDS ORDERED: oxyCODONE HCL 5 MG TABLET PO ONE (10:45)
[2019-08-26] MEDS: ACETAMINOPHEN 325 MG TABLET (FP) PO PRN ×2 (10:46→16:50)
--- NOTE | 2019-08-26 14:00 | PN ---
Progress Note, Physician Chief Complaint: pt is feeling better today , less pain, was able to walk in am, no distress, no fever, no chills, and passing gas, - Current Medication List Current Medications: Active Medications Acetaminophen (Tylenol -) 650 mg PO Q4H PRN PRN Reason: PAIN LEVEL 3-5 Last Admin: 08/26/19 10:46 Dose: 650 mg Albuterol Sulfate (Ventolin 0.083% Nebulizer Soln -) 1 amp NEB Q4H PRN PRN Reason: SHORT OF BREATH/WHEEZING Albuterol/Ipratropium (Duoneb -) 1 amp NEB Q4H PRN PRN Reason: SHORTNESS OF BREATH Atorvastatin Calcium (Lipitor -) 40 mg PO [facility] Last Admin: 08/25/19 21:54 Dose: 40 mg Baclofen (Lioresal -) 10 mg PO TID [facility] Last Admin: 08/26/19 13:07 Dose: 10 mg Docusate Sodium (Colace -) 100 mg PO BID [facility] Last Admin: 08/26/19 09:46 Dose: 100 mg Gabapentin (Neurontin -) 600 mg PO [facility] Last Admin: 08/25/19 21:53 Dose: 600 mg Losartan Potassium (Cozaar -) 25 mg PO DAILY [facility] Last Admin: 08/26/19 09:46 Dose: 25 mg Nystatin (Mycostatin Ointment -) 1 applic TP BID [facility] Last Admin: 08/25/19 21:55 Dose: 1 applic Olanzapine (Zyprexa -) 100 mg PO [facility] Ondansetron HCl (Zofran Injection) 4 mg IVPUSH Q6H PRN PRN Reason: NAUSEA AND/OR VOMITING Oxycodone HCl (Roxicodone -) 10 mg PO Q4H PRN PRN Reason: PAIN LEVEL 5-10 Last Admin: 08/26/19 13:07 Dose: 10 mg Polyethylene Glycol (Miralax (For Daily Use) -) 17 gm PO DAILY [facility] Last Admin: 08/26/19 09:47 Dose: 17 grams Prednisone (Deltasone -) 40 mg PO DAILY [facility] Last Admin: 08/26/19 09:46 Dose: 40 mg Primidone (Mysoline -) 50 mg PO [facility] Last Admin: 08/25/19 21:54 Dose: 50 mg Senna (Senna -) 1 tab PO BID [facility] Last Admin: 08/26/19 09:46 Dose: 1 tab Sertraline HCl (Zoloft -) 100 mg PO HS [facility] Last Admin: 08/25/19 21:53 Dose: 100 mg - Objective Vital Signs: Vital Signs Temperature 97.5 F L 08/26/19 10:00 Pulse Rate 61 08/26/19 10:00 Respiratory Rate 18 08/26/19 10:00 Blood Pressure 145/65 08/26/19 10:00 O2 Sat by Pulse Oximetry (%) 92 L 08/25/19 21:26 Constitutional: Yes: Well Nourished Eyes: Yes: Conjunctiva Clear, EOM Intact HENT: Yes: WNL Neck: Yes: WNL, Decreased ROM (bc of neck collar,) Cardiovascular: Yes: Regular Rate and Rhythm Respiratory: Yes: Regular Gastrointestinal: Yes: WNL Extremities: Yes: WNL Edema: No Neurological: Yes: WNL, Alert, Oriented Labs: CBC, BMP 08/25/19 06:03 08/25/19 06:03 Impression/Plan Impression/Plan: 69F PMH COPD, Asthma, fibromyalgia, GERD, diverticulitis, anxiety, HTN, HLD s/p C4-C5 anterior cervical discectomy and fusion, partial corpectomy C5-C6 POD #1 S/p ant cervical discectomy, c4-5. on packaging coordinator, pain managed well, and is walking and doing well, -Hard C-Collar in place on PT and OT, and oob to chair, copd. stable on neb. -Patient is satting well on 2L NC -Incentive spirometer at bedside -Chest x-ray did not show any infiltrates. Poor inspiratory effort. -Duonebs htn controlled, continue current meds, /GI -Patient tolerating diet. -Passing gas -On bowel regimen of colace, senna, MSK -PT/OT Rehab, OOB to chair DVT PPx: SCDs Visit type - Emergency Visit Emergency Visit: No - New Patient This patient is new to me today: Yes Date on this admission: 08/26/19 - Critical Care Critical Care patient: No - Discharge Referral Referred to [facility] Med P.C.: No
--- NOTE | 2019-08-26 15:09 | PATH ---
Surgical Pathology Report Patient Name: TEOFILO ORELLANA Med. Rec. #: [id number] /Age/Gender: 1950 (Age: 69) / F Account: [id number] Location: [facility] MED/SURG Taken: 08/24/2019 Received: 08/25/2019 Reported: 08/26/2019 Physicians: Ramon Tanner M.D. Specimen(s) Received A: HARDWARE B: C4/5/6 Clinical History Spinal enthesopathy cervical spine Final Diagnosis A. HARDWARE, REMOVAL: SURGICAL HARDWARE. MACROSCOPIC DIAGNOSIS. B. C4/5/6, ANTERIOR CERVICAL DISCECTOMY AND FUSION: BENIGN INTERVERTEBRAL DISC TISSUE, BONE, AND BONE MARROW WITH TRILINEAGE HEMATOPOIESIS. Electronically Signed Patito Fernández M.D. Gross Description A. Received fresh labeled "removed hardware," are 8 metallic portions of hardware and screws ranging from 0.5-1.5 cm in greatest dimension. No soft tissue is present. No sections are submitted, gross only. B. Received fresh labeled "C4/5/6," is a 2.5 x 1.0 x 0.4 cm aggregate of will brown fragments of fibrocartilaginous tissue. A freight representative portion is submitted in one cassette. /08/25/2019 saudi08/25/2019
[2019-08-26] MEDS: NYSTATIN 100000 UNIT/GM TOPICAL OINTMENT 15 GM TUBE TP SCH ×2 (18:16→21:18)
[2019-08-26] MEDS ORDERED: PT OWN MED DRAWER 7, Y5N ONE (21:01)
[2019-08-26] MEDS: SERTRALINE HCL 50 MG TABLET (FP) PO SCH (21:09)
[2019-08-26] MEDS: GABAPENTIN 300 MG CAPSULE PO SCH (21:10)
[2019-08-26] MEDS: ATORVASTATIN CA 40 MG TABLET (FP) PO SCH (21:10)
[2019-08-26] MEDS: PRIMIDONE 50 MG TABLET PO SCH (21:56)
[2019-08-27] MEDS: oxyCODONE HCL 5 MG TABLET PO PRN ×3 (01:41→09:47)
[2019-08-27] MEDS: BACLOFEN 10 MG TABLET (FP) PO SCH ×3 (05:49→21:14)
[2019-08-27] MEDS ORDERED: PT OWN MED DRAWER 7, Y5N ONE ×2 (07:56→09:06)
[2019-08-27] MEDS: ACETAMINOPHEN 325 MG TABLET (FP) PO PRN (08:30)
[2019-08-27 08:57] LABS: BASO % 0.5 % (0-2.0); EOS % 0.3 % (0-4.5); HEMATOCRIT 43.8 % (32.4-45.2); HEMOGLOBIN 14.3 GM/dL (10.7-15.3); LYMPH % 20.2 % (8-40); MCH 28.9 pg (25.7-33.7); MCHC 32.7 g/dl (32.0-36.0); MEAN CELL VOLUME 88.4 fl (80-96); MEAN PLT VOLUME 9.1 fl (7.5-11.1); MONO % 7.7 % (3.8-10.2); NEUT % 71.3 % (42.8-82.8); PLATELET COUNT 318 K/MM3 (134-434); RBC 4.95 M/mm3 (3.60-5.2); RDW 15.8 % (11.6-15.6); WHITE BLOOD COUNT 12.7 K/mm3 (4.0-10.0)
[2019-08-27 09:21] LABS: ALBUMIN 3.2 g/dl (3.4-5.0); BILIRUBIN,TOTAL 0.4 mg/dL (0.2-1); CALCIUM 8.5 mg/dL (8.5-10.1); CREATININE 0.7 mg/dL (0.55-1.3); TOT PROT 7.2 g/dl (6.4-8.2)
[2019-08-27] MEDS: DOCUSATE SODIUM 100 MG CAPSULE (FP) PO SCH ×2 (09:40→21:13)
[2019-08-27] MEDS: predniSONE 20 MG TABLET (UD) PO SCH (09:40)
[2019-08-27] MEDS: LOSARTAN POTASSIUM 25 MG TABLET PO SCH (09:40)
[2019-08-27] MEDS: SENNOSIDES 8.6MG TABLET (FP) PO SCH ×2 (09:40→21:15)
[2019-08-27] MEDS: NYSTATIN 100000 UNIT/GM TOPICAL OINTMENT 15 GM TUBE TP SCH ×2 (09:41→21:14)
[2019-08-27] MEDS: POLYETHYLENE GLYCOL 3350 119 GM BTL PO SCH ×2 (09:41→09:57)
[2019-08-27] MEDS ORDERED: OLANZapine 5 MG TABLET PO SCH ×2 (10:00→22:00)
[2019-08-27] MEDS ORDERED: traMADol HCL 50 MG TABLET PO PRN (10:15)
[2019-08-27] MEDS ORDERED: oxyCODONE HCL 5 MG TABLET PO PRN (10:15)
[2019-08-27] MEDS: oxyCODONE HCL 10 MG SUSTAINED ACTING TABLET PO SCH ×2 (12:01→21:14)
--- NOTE | 2019-08-27 13:12 | PN ---
Physical Exam: SUBJECTIVE: Patient seen and examined at the bedside. reports headaches for last 3 days, and again this morning. denies any visual defect, no eye drainage or frequent tearing. OBJECTIVE: increase cozaar for elevated bp visine dye drops QID may need outpatient referral to ophthalmology if eye not improving Vital Signs Period Temp Pulse Resp BP Sys/Murray Pulse Ox Last 24 Hr 97.3 F-98.7 F 57-96 18-20 155-172/68-90 94 GENERAL: The patient is awake, alert, and fully oriented, in no acute distress. HEAD: Normal with no signs of trauma. cervical collar in place. right eye EYES: redness/hrg L eye (inner, small), right eye lat side subconjunctival hemorrage, limited to conjunctiva, pupils perrla, no drainage, does not appear infected. eye eye drops qid, follow up with opthomology ENT: Ears normal, nares patent, oropharynx clear without exudates, moist mucous membranes. NECK: Trachea midline, full range of motion, supple. LUNGS: Breath sounds equal, clear to auscultation bilaterally, no wheezes HEART: Regular rate and rhythm ABDOMEN: Soft, nontender, nondistended, normoactive bowel sounds, no guarding EXTREMITIES: no edema. NEUROLOGICAL: Normal speech, gait not observed. PSYCH: Normal mood, normal affect. Laboratory Results - last 24 hr 08/27/19 08/27/19 08/27/19 08:18 08:18 08:18 WBC 12.7 H RBC 4.95 Hgb 14.3 Hct 43.8 MCV 88.4 MCH 28.9 MCHC 32.7 RDW 15.8 H Plt Count 318 MPV 9.1 Absolute Neuts (auto) 9.1 H Neutrophils % 71.3 D Lymphocytes % 20.2 D Monocytes % 7.7 D Eosinophils % 0.3 D Basophils % 0.5 Nucleated RBC % 0 Sodium 137 Potassium 4.0 Chloride 101 Carbon Dioxide 29 Anion Gap 7 L BUN 11.0 Creatinine 0.7 Est GFR (CKD-EPI)AfAm 103.18 Est GFR (CKD-EPI)NonAf 89.03 Random Glucose 119 H Hemoglobin A1c % 6.9 H Calcium 8.5 Total Bilirubin 0.4 AST 26 ALT 22 Alkaline Phosphatase 89 Total Protein 7.2 Albumin 3.2 L Active Medications Generic Name Dose Route Start Last Admin Trade Name Freq PRN Reason Stop Dose Admin Acetaminophen 650 mg 08/26/19 10:38 08/27/19 08:30 Tylenol - PO 650 mg Q4H PRN Administration PAIN LEVEL 3-5 Albuterol Sulfate 1 amp 08/25/19 18:28 Ventolin 0.083% Nebulizer Soln - NEB Q4H PRN SHORT OF BREATH/WHEEZING Albuterol/Ipratropium 1 amp 08/25/19 18:28 Duoneb - NEB Q4H PRN SHORTNESS OF BREATH Atorvastatin Calcium 40 mg 08/25/19 22:00 08/26/19 21:10 Lipitor - PO 40 mg HS ERIC Administration Baclofen 10 mg 08/25/19 22:00 08/27/19 05:49 Lioresal - PO 10 mg TID ERIC Administration Docusate Sodium 100 mg 08/25/19 22:00 08/27/19 09:40 Colace - PO 100 mg BID ERIC Administration Gabapentin 600 mg 08/25/19 22:00 08/26/19 21:10 Neurontin - PO 600 mg HS ERIC Administration Losartan Potassium 25 mg 08/26/19 10:00 08/27/19 09:40 Cozaar - PO 25 mg DAILY ERIC Administration Nystatin 1 applic 08/25/19 22:00 08/27/19 09:41 Mycostatin Ointment - TP Not Given BID [facility] Olanzapine 10 mg 08/27/19 10:00 08/27/19 12:01 Zyprexa - PO Not Given DAILY [facility] Ondansetron HCl 4 mg 08/25/19 18:28 Zofran Injection IVPUSH Q6H PRN NAUSEA AND/OR VOMITING Oxycodone HCl 10 mg 08/27/19 10:15 Roxicodone - PO Q3H PRN PAIN LEVEL 4 - 6 Oxycodone HCl 15 mg 08/27/19 10:15 Roxicodone - PO Q3H PRN PAIN LEVEL 7 - 10 Oxycodone HCl 10 mg 08/27/19 10:15 08/27/19 12:01 Oxycontin - PO 08/30/19 10:15 10 mg BID ERIC Administration Polyethylene Glycol 17 gm 08/26/19 10:00 08/27/19 09:57 Miralax (For Daily Use) - PO Not Given DAILY [facility] Prednisone 40 mg 08/26/19 10:00 08/27/19 09:40 Deltasone - PO 40 mg DAILY ERIC Administration Primidone 50 mg 08/25/19 22:00 08/26/19 21:56 Mysoline - PO 50 mg HS ERIC Administration Senna 1 tab 08/25/19 13:00 08/27/19 09:40 Senna - PO 1 tab BID ERIC Administration Sertraline HCl 100 mg 08/25/19 22:00 08/26/19 21:09 Zoloft - PO 100 mg HS ERIC Administration Tetrahydrozoline HCl 1 drop 08/27/19 14:00 Visine - OU QID ERIC Tramadol HCl 50 mg 08/27/19 10:15 Ultram - PO Q3H PRN PAIN 1 - 3;IF TYLENOL NOT WORK ASSESSMENT/PLAN: Patient is a 69 year old female with a significant past medical history of asthma, fibromyalgia, GERD, diverticulitis, anxiety, HTN, HLD. She is s/p C4- C5 anterior cervical discectomy and fusion, partial corpectomy C5-C6 POD #2 Surgery: s/p ant cervical discectomy, c4-5 on tramadol, oxycodone. states pain is better. hard collar in place, does better with soft foods and soups, denies any shortness of breath. on room air, stable. physical therapy evaluated Pulmonary: copd, stable not in exacerbation, lungs clear incentive spirometer duonebs prn Card: Hypertension not at goal and has been having headaches and eye hemmorage, from? htn? increase coozar to 50mg daily and monitor bp Eye hemorrhage: unknown cause, developed yesterday, patient reports headaches, no vision problems. redness/hrg L eye (inner, small), right eye lat side subconjunctival hemorrage, limited to conjunctiva, pupils perrla, no drainage, does not appear infected. eye eye drops qid, follow up with opthomology no recent eye surgery, no heavy lifting, coughing or sneezing add visine eye drops monitor and refer to opthomology outpatient cool eye compresses may also help Visit type - Emergency Visit Emergency Visit: No - New Patient This patient is new to me today: Yes Date on this admission: 08/27/19 - Critical Care Critical Care patient: No - Discharge Referral Referred to [facility] Med P.C.: No
[2019-08-27] MEDS ORDERED: LOSARTAN POTASSIUM 50 MG TABLET (FP) PO SCH (13:21)
[2019-08-27] MEDS ORDERED: LOSARTAN POTASSIUM 25 MG TABLET PO ONE (13:45)
[2019-08-27] MEDS: TETRAHYDROZOLINE HCL EYE DROPS OU SCH ×3 (13:45→21:15)
[2019-08-27] MEDS: ATORVASTATIN CA 40 MG TABLET (FP) PO SCH (21:14)
[2019-08-27] MEDS: PRIMIDONE 50 MG TABLET PO SCH (21:14)
[2019-08-27] MEDS: GABAPENTIN 300 MG CAPSULE PO SCH (21:14)
[2019-08-27] MEDS: SERTRALINE HCL 50 MG TABLET (FP) PO SCH (21:15)
[2019-08-28] MEDS: oxyCODONE HCL 5 MG TABLET PO PRN ×2 (03:02→07:26)
[2019-08-28] MEDS: BACLOFEN 10 MG TABLET (FP) PO SCH ×3 (05:31→22:56)
[2019-08-28 08:07] LABS: BASO % 0.9 % (0-2.0); HEMATOCRIT 47.4 % (32.4-45.2); HEMOGLOBIN 15.4 GM/dL (10.7-15.3); MCHC 32.5 g/dl (32.0-36.0); MEAN CELL VOLUME 89.3 fl (80-96); MEAN PLT VOLUME 9.2 fl (7.5-11.1); MONO % 7.2 % (3.8-10.2); NEUT % 57.9 % (42.8-82.8); PLATELET COUNT 363 K/MM3 (134-434); RBC 5.31 M/mm3 (3.60-5.2); RDW 15.2 % (11.6-15.6); WHITE BLOOD COUNT 13.1 K/mm3 (4.0-10.0)
[2019-08-28 08:29] LABS: ALBUMIN 3.2 g/dl (3.4-5.0); BILIRUBIN,TOTAL 0.5 mg/dL (0.2-1); BLOOD UREA NITROGEN 15.2 mg/dL (7-18); CALCIUM 8.7 mg/dL (8.5-10.1); CREATININE 0.9 mg/dL (0.55-1.3); POTASSIUM 3.7 mmol/L (3.5-5.1)
[2019-08-28] MEDS: NYSTATIN 100000 UNIT/GM TOPICAL OINTMENT 15 GM TUBE TP SCH ×3 (12:00→22:57)
[2019-08-28] MEDS: oxyCODONE HCL 10 MG SUSTAINED ACTING TABLET PO SCH (12:22)
[2019-08-28] MEDS: DOCUSATE SODIUM 100 MG CAPSULE (FP) PO SCH ×2 (12:23→22:56)
[2019-08-28] MEDS: predniSONE 20 MG TABLET (UD) PO SCH (12:23)
[2019-08-28] MEDS: SENNOSIDES 8.6MG TABLET (FP) PO SCH ×2 (12:23→22:56)
[2019-08-28] MEDS: TETRAHYDROZOLINE HCL EYE DROPS OU SCH ×4 (12:25→22:57)
[2019-08-28] MEDS: POLYETHYLENE GLYCOL 3350 119 GM BTL PO SCH (12:26)
[2019-08-28] MEDS ORDERED: ALBUTEROL SO4 2.5/IPRATROPIUM 0.5 INH SOL 3 ML VIAL.NEB. NEB ONE (12:53)
[2019-08-28] MEDS ORDERED: oxyCODONE HCL 5 MG TABLET PO PRN ×3 (12:55→16:34)
--- NOTE | 2019-08-28 12:58 | PN ---
Physical Exam: SUBJECTIVE: Patient seen and examined at the bedside. awake and alert, states she is having pain. having dizziness with ambulation today, denies any shortness of breath or chest pain. OBJECTIVE: hypotensive today, symptomatic. also noted to have low oxygen levels and 2 liters of nasal cannula re-applied bp medications held for hypotension blood cultures ordered imaging: chest xray: clear lungs, more apical or ptotoic projection w/new fluid int he horizontal fissure. Vital Signs Period Temp Pulse Resp BP Sys/Murray Pulse Ox Last 24 Hr 97.8 F-98.9 F 61-102 18-20 78-163/52-86 93-93 GENERAL: The patient is awake, alert, and fully oriented, in no acute distress. HEAD: Normal with no signs of trauma. cervical collar in place. right eye EYES: redness/hrg L eye (inner, small), right eye lat side subconjunctival hemorrage, limited to conjunctiva, pupils perrla, no drainage, does not appear infected. eye eye drops qid, follow up with opthomology ENT: Ears normal, nares patent, oropharynx clear without exudates, moist mucous membranes. NECK: Trachea midline, full range of motion, supple. LUNGS: Breath sounds equal, clear to auscultation bilaterally, no wheezes HEART: Regular rate and rhythm ABDOMEN: Soft, nontender, nondistended, normoactive bowel sounds, no guarding EXTREMITIES: no edema. NEUROLOGICAL: Normal speech, gait not observed. PSYCH: Normal mood, normal affect. Laboratory Results - last 24 hr 08/27/19 08/28/19 08/28/19 18:55 05:28 07:45 WBC 13.1 H RBC 5.31 H Hgb 15.4 H Hct 47.4 H MCV 89.3 MCH 29.0 MCHC 32.5 RDW 15.2 Plt Count 363 MPV 9.2 Absolute Neuts (auto) 7.6 Neutrophils % 57.9 Lymphocytes % 33.0 D Monocytes % 7.2 Eosinophils % 1.0 D Basophils % 0.9 Nucleated RBC % 0 Sodium Potassium Chloride Carbon Dioxide Anion Gap BUN Creatinine Est GFR (CKD-EPI)AfAm Est GFR (CKD-EPI)NonAf POC Glucometer 202 139 Random Glucose Calcium Total Bilirubin AST ALT Alkaline Phosphatase Total Protein Albumin 08/28/19 07:45 WBC RBC Hgb Hct MCV MCH MCHC RDW Plt Count MPV Absolute Neuts (auto) Neutrophils % Lymphocytes % Monocytes % Eosinophils % Basophils % Nucleated RBC % Sodium 138 Potassium 3.7 Chloride 103 Carbon Dioxide 28 Anion Gap 8 BUN 15.2 Creatinine 0.9 Est GFR (CKD-EPI)AfAm 76.14 Est GFR (CKD-EPI)NonAf 65.70 POC Glucometer Random Glucose 123 H Calcium 8.7 Total Bilirubin 0.5 AST 18 ALT 20 Alkaline Phosphatase 82 Total Protein 7.0 Albumin 3.2 L Active Medications Generic Name Dose Route Start Last Admin Trade Name Freq PRN Reason Stop Dose Admin Acetaminophen 650 mg 08/26/19 10:38 08/27/19 08:30 Tylenol - PO 650 mg Q4H PRN Administration PAIN LEVEL 3-5 Albuterol Sulfate 1 amp 08/25/19 18:28 Ventolin 0.083% Nebulizer Soln - NEB Q4H PRN SHORT OF BREATH/WHEEZING Albuterol/Ipratropium 1 amp 08/25/19 18:28 Duoneb - NEB Q4H PRN SHORTNESS OF BREATH Atorvastatin Calcium 40 mg 08/25/19 22:00 08/27/19 21:14 Lipitor - PO 40 mg HS ERIC Administration Baclofen 10 mg 08/25/19 22:00 08/28/19 05:31 Lioresal - PO 10 mg TID ERIC Administration Docusate Sodium 100 mg 08/25/19 22:00 08/28/19 12:23 Colace - PO 100 mg BID ERIC Administration Gabapentin 600 mg 08/25/19 22:00 08/27/19 21:14 Neurontin - PO 600 mg HS ERIC Administration Losartan Potassium 50 mg 08/28/19 13:00 Cozaar - PO DAILY ERIC Nystatin 1 applic 08/25/19 22:00 08/28/19 12:24 Mycostatin Ointment - TP Not Given BID ERIC Olanzapine 10 mg 08/27/19 22:00 08/27/19 21:15 Zyprexa - PO 10 mg HS ERIC Administration Oxycodone HCl 10 mg 08/27/19 10:15 08/28/19 12:22 Oxycontin - PO 08/30/19 10:15 10 mg BID ERIC Administration Oxycodone HCl 10 mg 08/28/19 12:55 Roxicodone - PO Q6H PRN PAIN LEVEL 4 - 6 Oxycodone HCl 15 mg 08/28/19 12:55 Roxicodone - PO Q6H PRN PAIN LEVEL 7 - 10 Polyethylene Glycol 17 gm 08/26/19 10:00 08/28/19 12:26 Miralax (For Daily Use) - PO Not Given DAILY ERIC Prednisone 40 mg 08/26/19 10:00 08/28/19 12:23 Deltasone - PO 40 mg DAILY ERIC Administration Primidone 50 mg 08/25/19 22:00 08/27/19 21:14 Mysoline - PO 50 mg HS ERIC Administration Senna 1 tab 08/25/19 13:00 08/28/19 12:23 Senna - PO 1 tab BID ERIC Administration Sertraline HCl 100 mg 08/25/19 22:00 08/27/19 21:15 Zoloft - PO 100 mg HS ERIC Administration Tetrahydrozoline HCl 1 drop 08/27/19 14:00 08/28/19 12:25 Visine - OU 1 drop QID ERIC Administration Tramadol HCl 50 mg 08/27/19 10:15 Ultram - PO Q3H PRN PAIN 1 - 3;IF TYLENOL NOT WORK ASSESSMENT/PLAN: Problem List - Problems (1) S/P cervical discectomy Assessment/Plan: s/p ant cervical discectomy, c4-5 on tramadol, oxycodone and oxycontin. will d/c oxycontin but continue oxycodone as needed but frequency now q6 instead of q3 as patient became hypotensive, dizzy with low oxygen saturations. will monitor pain going forward. monitor vital signs. hard collar in place, denies difficulty swallowing but does better with soft foods and soups physical therapy evaluated encouraged use of incentive spirometer Code(s): Z98.890 - OTHER SPECIFIED POSTPROCEDURAL STATES (2) COPD (chronic obstructive pulmonary disease) Assessment/Plan: on duonebs as needed not in acute exacerbation Code(s): J44.9 - CHRONIC OBSTRUCTIVE PULMONARY DISEASE, UNSPECIFIED (3) Hypertension Assessment/Plan: bp medications held today for hypotension parameters added to cozaar Code(s): I10 - ESSENTIAL (PRIMARY) HYPERTENSION (4) Eye hemorrhage Assessment/Plan: unknown cause, no vision problems. improving since yesterday. redness/hrg L eye (inner, small), right eye lat side subconjunctival hemorrhage , limited to conjunctiva, pupils perrla, no drainage, does not appear infected. eye drops qid, follow up with ophthalmology as an outpatient. has had no recent eye surgery, no heavy lifting, but has been coughing and suctioning frequently post op cool eye compresses may also help Code(s): H57.89 - OTHER SPECIFIED DISORDERS OF EYE AND ADNEXA (5) DVT prophylaxis Assessment/Plan: scds/ambulation Code(s): Z29.9 - ENCOUNTER FOR PROPHYLACTIC MEASURES, UNSPECIFIED (6) Prophylactic measure Assessment/Plan: fen tolerating po monitor electrolytes low salt diet/soft diet full code Code(s): Z29.9 - ENCOUNTER FOR PROPHYLACTIC MEASURES, UNSPECIFIED Visit type - Emergency Visit Emergency Visit: Yes ED Registration Date: 08/24/19 Care time: The patient presented to the Emergency Department on the above date and was hospitalized for further evaluation of their emergent condition. - New Patient This patient is new to me today: No - Critical Care Critical Care patient: No - Discharge Referral Referred to [facility] Med P.C.: No
[2019-08-28] MEDS ORDERED: LOSARTAN POTASSIUM 50 MG TABLET (FP) PO SCH (13:00)
[2019-08-28 16:53] LABS: EPI CELLS >36 /HPF (0-5/HPF); HYALINE CASTS 20 /lpf (0-8); URINE APPEARANCE CLOUDY; URINE BACTERIA 858.5 /hpf (NEGATIVE); URINE BILIRUBIN NEGATIVE (NEGATIVE); URINE COLOR YELLOW; URINE GLUCOSE (UA) NEGATIVE (NEGATIVE); URINE KETONE TRACE (NEGATIVE); URINE LEUK ESTERASE 2+ (NEGATIVE); URINE NITRITE NEGATIVE (NEGATIVE); URINE PROTEIN 1+ (NEGATIVE); URINE RBC 19 /hpf (0-4); URINE WBC 18 /hpf (0-5)
[2019-08-28] MEDS ORDERED: SODIUM CHLORIDE 500 ML IV STA (18:34)
[2019-08-28] MEDS ORDERED: SODIUM CHLORIDE 1,000 ML IV SCH ×2 (18:45)
[2019-08-28] MEDS: NITROFURANTOIN MACROCRYSTAL 50 MG CAPSULE (FP) PO SCH ×2 (19:20→23:03)
[2019-08-28] MEDS: SERTRALINE HCL 50 MG TABLET (FP) PO SCH (22:56)
[2019-08-28] MEDS: GABAPENTIN 300 MG CAPSULE PO SCH (22:56)
[2019-08-28] MEDS: ATORVASTATIN CA 40 MG TABLET (FP) PO SCH (22:56)
[2019-08-28] MEDS: PRIMIDONE 50 MG TABLET PO SCH (23:03)
[2019-08-29] MEDS ORDERED: SODIUM CHLORIDE 1,000 ML IV SCH ×2 (02:41→02:44)
[2019-08-29] MEDS ORDERED: ALBUTEROL SO4 0.083% IH SOL 2.5 MG/3 ML VIAL.NEB. NEB PRN (02:41)
[2019-08-29] MEDS: NITROFURANTOIN MACROCRYSTAL 50 MG CAPSULE (FP) PO SCH ×3 (05:58→17:05)
[2019-08-29] MEDS: BACLOFEN 10 MG TABLET (FP) PO SCH ×3 (05:58→21:46)
[2019-08-29 07:26] LABS: ALBUMIN 2.9 g/dl (3.4-5.0); ALK PHOS 72 U/L (45-117); ANION GAP 9 MMOL/L (8-16); BILIRUBIN,TOTAL 0.3 mg/dL (0.2-1); BLOOD UREA NITROGEN 28.4 mg/dL (7-18); CALCIUM 7.9 mg/dL (8.5-10.1); CHLORIDE 107 mmol/L (98-107); CO2 24 mmol/L (21-32); CREATININE 1.7 mg/dL (0.55-1.3); GLUCOSE,RANDOM 94 mg/dL (74-106); MAGNESIUM 2.5 mg/dL (1.8-2.4); POTASSIUM 3.9 mmol/L (3.5-5.1); SGOT/AST 15 U/L (15-37); SGPT/ALT 16 U/L (13-61); SODIUM 140 mmol/L (136-145); TOT PROT 6.4 g/dl (6.4-8.2)
[2019-08-29 07:31] LABS: BASO % 0.3 % (0-2.0); EOS % 0.8 % (0-4.5); HEMATOCRIT 41.1 % (32.4-45.2); HEMOGLOBIN 13.2 GM/dL (10.7-15.3); LYMPH % 26.1 % (8-40); MCHC 32.2 g/dl (32.0-36.0); MEAN CELL VOLUME 89.9 fl (80-96); NEUT % 63.8 % (42.8-82.8); PLATELET COUNT 324 K/MM3 (134-434); RBC 4.57 M/mm3 (3.60-5.2); RDW 15.1 % (11.6-15.6); WHITE BLOOD COUNT 12.6 K/mm3 (4.0-10.0)
[2019-08-29] MEDS ORDERED: FUROSEMIDE 40 MG/4 ML INJECTABLE VIAL IVPUSH ONE ×2 (08:09→09:13)
[2019-08-29] MEDS ORDERED: FUROSEMIDE 40 MG/4 ML INJECTABLE VIAL ONE (08:14)
--- NOTE | 2019-08-29 08:20 | PN ---
Physical Exam: SUBJECTIVE: Patient seen and examined at the bedside. Patient transferred from [facility] to [facility] overnight for hypotension. she was given ns 500 bolus for bp 70s/40s, 80s/40s and placed on maintenance fluids. She was also alegre cultured. This morning received a call from patient's primary RN that patient is lethargic and her oxygen saturations are 86% on 4 liters of nasal cannula. On exam, patient is awake, lethargic, answering questions in one worded sentences, currently getting a respiratory treatment. having a headache. She denies chest pain. I called and spoke to patient's and updated him on patient status, per , he face timed his overnight around 10pm and noted that she was repetitive and "unlike herself". OBJECTIVE: slight right mouth droop noted, states she is having a headache, head ct negative for acute process. flu swab pending straight cath for urine culture labs: lactic acidosis overnight 3.0>0.8, creat 1.7. troponins negative x 3. chest xray 08/29/19: larger heart, right hemidiagram, atelectasic changes in left mid lung, streaky changes in right upper lobe, possible early infiltrate Patient placed on NRB with oxygen saturations of 94% at [address] Wood who started patient on Cefezolin for possible pneumonia. Pt w/o fever but is currently on prednisone 40mg for 5 days post surgery (08/26>08/31). discussed with icu attending, who will evaluate patient for possible icu transfer. tele: pvcs, nsr 80s/90s ekg: anterior infarct (age undetermined) chest ct 08/29/19: significant bronchietasis rul w/surrounding infiltration, localized bronchietasis miguel ángel with ground glass inf. Vital Signs Period Temp Pulse Resp BP Sys/Murray Pulse Ox Last 24 Hr 97.8 F-98.4 F 59-94 17-20 76-122/42-63 93-96 GENERAL: The patient is awake, lethargic, not following commands, reports a headache HEAD: Normal with no signs of trauma. cervical collar in place. right eye hemorrhage improving, slight right side mouth droop? for head ct. unable to perform neuro exam as patient is lethargic and not following commands. EYES: redness/hrg L eye (inner, small), right eye lat side subconjunctival hemorrhage, limited to conjunctiva, pupils perrla, no drainage, does not appear infected. eye eye drops qid, follow up with opthomology ENT: Ears normal, nares patent, oropharynx clear without exudates, moist mucous membranes. NECK: Trachea midline, full range of motion, supple. LUNGS: bilaterally with crackles throughout lung arevalo, stop ivf and give lasix 40mg, chest xray pending HEART: Regular rate and rhythm ABDOMEN: Soft, nontender, nondistended, normoactive bowel sounds, no guarding EXTREMITIES: no edema. NEUROLOGICAL: lethargic, slight right sided mouth drop PSYCH: lethargic, answering some questions appropriately Laboratory Results - last 24 hr 08/28/19 08/28/19 08/28/19 07:45 07:45 16:00 WBC 13.1 H RBC 5.31 H Hgb 15.4 H Hct 47.4 H MCV 89.3 MCH 29.0 MCHC 32.5 RDW 15.2 Plt Count 363 MPV 9.2 Absolute Neuts (auto) 7.6 Neutrophils % 57.9 Lymphocytes % 33.0 D Monocytes % 7.2 Eosinophils % 1.0 D Basophils % 0.9 Nucleated RBC % 0 Sodium 138 Potassium 3.7 Chloride 103 Carbon Dioxide 28 Anion Gap 8 BUN 15.2 Creatinine 0.9 Est GFR (CKD-EPI)AfAm 76.14 Est GFR (CKD-EPI)NonAf 65.70 POC Glucometer Random Glucose 123 H Lactic Acid Calcium 8.7 Magnesium Total Bilirubin 0.5 AST 18 ALT 20 Alkaline Phosphatase 82 Troponin I Total Protein 7.0 Albumin 3.2 L Urine Color Yellow Urine Appearance Cloudy Urine pH 8.0 Ur Specific [place] 1.019 Urine Protein 1+ H Urine Glucose (UA) Negative Urine Ketones Trace H Urine Blood Trace Urine Nitrite Negative Urine Bilirubin Negative Urine Urobilinogen 1.0 Ur Leukocyte Esterase 2+ H Urine WBC (Auto) 18 Urine RBC (Auto) 19 Urine Casts (Auto) 20 U Pathogenic Cast Auto 0 U Epithel Cells (Auto) >36 Urine Bacteria (Auto) 858.5 08/28/19 08/28/19 08/28/19 18:39 19:30 19:30 WBC RBC Hgb Hct MCV MCH MCHC RDW Plt Count MPV Absolute Neuts (auto) Neutrophils % Lymphocytes % Monocytes % Eosinophils % Basophils % Nucleated RBC % Sodium Potassium Chloride Carbon Dioxide Anion Gap BUN Creatinine Est GFR (CKD-EPI)AfAm Est GFR (CKD-EPI)NonAf POC Glucometer 247 Random Glucose Lactic Acid 3.0 H* Calcium Magnesium Total Bilirubin AST ALT Alkaline Phosphatase Troponin I < 0.02 Total Protein Albumin Urine Color Urine Appearance Urine pH Ur Specific [place] Urine Protein Urine Glucose (UA) Urine Ketones Urine Blood Urine Nitrite Urine Bilirubin Urine Urobilinogen Ur Leukocyte Esterase Urine WBC (Auto) Urine RBC (Auto) Urine Casts (Auto) U Pathogenic Cast Auto U Epithel Cells (Auto) Urine Bacteria (Auto) 08/29/19 08/29/19 08/29/19 00:15 01:58 06:05 WBC 12.6 H RBC 4.57 Hgb 13.2 Hct 41.1 MCV 89.9 MCH 29.0 MCHC 32.2 RDW 15.1 Plt Count 324 MPV 9.0 Absolute Neuts (auto) 8.0 Neutrophils % 63.8 Lymphocytes % 26.1 D Monocytes % 9.0 Eosinophils % 0.8 Basophils % 0.3 Nucleated RBC % 0 Sodium Potassium Chloride Carbon Dioxide Anion Gap BUN Creatinine Est GFR (CKD-EPI)AfAm Est GFR (CKD-EPI)NonAf POC Glucometer Random Glucose Lactic Acid 0.8 Calcium Magnesium Total Bilirubin AST ALT Alkaline Phosphatase Troponin I < 0.02 Total Protein Albumin Urine Color Urine Appearance Urine pH Ur Specific [place] Urine Protein Urine Glucose (UA) Urine Ketones Urine Blood Urine Nitrite Urine Bilirubin Urine Urobilinogen Ur Leukocyte Esterase Urine WBC (Auto) Urine RBC (Auto) Urine Casts (Auto) U Pathogenic Cast Auto U Epithel Cells (Auto) Urine Bacteria (Auto) 08/29/19 08/29/19 06:05 07:38 WBC RBC Hgb Hct MCV MCH MCHC RDW Plt Count MPV Absolute Neuts (auto) Neutrophils % Lymphocytes % Monocytes % Eosinophils % Basophils % Nucleated RBC % Sodium 140 Potassium 3.9 Chloride 107 Carbon Dioxide 24 Anion Gap 9 BUN 28.4 H Creatinine 1.7 H Est GFR (CKD-EPI)AfAm 35.29 Est GFR (CKD-EPI)NonAf 30.45 POC Glucometer 115 Random Glucose 94 Lactic Acid Calcium 7.9 L Magnesium 2.5 H Total Bilirubin 0.3 AST 15 ALT 16 Alkaline Phosphatase 72 Troponin I < 0.02 Total Protein 6.4 Albumin 2.9 L Urine Color Urine Appearance Urine pH Ur Specific [place] Urine Protein Urine Glucose (UA) Urine Ketones Urine Blood Urine Nitrite Urine Bilirubin Urine Urobilinogen Ur Leukocyte Esterase Urine WBC (Auto) Urine RBC (Auto) Urine Casts (Auto) U Pathogenic Cast Auto U Epithel Cells (Auto) Urine Bacteria (Auto) Active Medications Generic Name Dose Route Start Last Admin Trade Name Freq PRN Reason Stop Dose Admin Acetaminophen 650 mg 08/29/19 02:41 Tylenol - PO Q4H PRN PAIN LEVEL 3-5 Albuterol/Ipratropium 1 amp 08/29/19 02:41 Duoneb - NEB Q4H PRN SHORTNESS OF BREATH Atorvastatin Calcium 40 mg 08/29/19 22:00 Lipitor - PO HS [facility] Baclofen 10 mg 08/29/19 06:00 08/29/19 05:58 Lioresal - PO 10 mg TID ERIC Administration Docusate Sodium 100 mg 08/29/19 10:00 Colace - PO BID [facility] Gabapentin 600 mg 08/29/19 22:00 Neurontin - PO [facility] Sodium Chloride 1,000 mls @ 60 mls/hr 08/29/19 02:44 Normal Saline - IV 08/29/19 18:32 ASDIR [facility] Losartan Potassium 50 mg 08/29/19 10:00 Cozaar - PO DAILY [facility] Nitrofurantoin Macrocrystals 100 mg 08/29/19 06:00 08/29/19 05:58 Macrodantin - PO 100 mg Q6HPO [facility] Administration Nystatin 1 applic 08/29/19 10:00 Mycostatin Ointment - TP BID [facility] Olanzapine 10 mg 08/29/19 22:00 Zyprexa - PO HS [facility] Oxycodone HCl 10 mg 08/29/19 02:41 Roxicodone - PO Q6H PRN PAIN LEVEL 7 - 10 Polyethylene Glycol 17 gm 08/29/19 10:00 Miralax (For Daily Use) - PO DAILY [facility] Prednisone 40 mg 08/29/19 10:00 Deltasone - PO DAILY [facility] Primidone 50 mg 08/29/19 22:00 Mysoline - PO HS [facility] Senna 1 tab 08/29/19 10:00 Senna - PO BID [facility] Sertraline HCl 100 mg 08/29/19 22:00 Zoloft - PO HS [facility] Tetrahydrozoline HCl 1 drop 08/29/19 10:00 Visine - OU QID [facility] ASSESSMENT/PLAN: Problem List - Problems (1) Pneumonia Assessment/Plan: chest ct shows significant bronchiectasis right upper lobe with surrounding infiltration, localized bronchiectasis left upper lobe with groundglass infiltrate on cefepime monitor airway Code(s): J18.9 - PNEUMONIA, UNSPECIFIED ORGANISM (2) Bronchiectasis Assessment/Plan: chest ct shows significant bronchiectasis of right upper lobe with surrounding infiltration, localized bronchiectasis left upper lobe with groundglass infiltrates. pulmonary consulted Code(s): J47.9 - BRONCHIECTASIS, UNCOMPLICATED (3) Shortness of breath Assessment/Plan: for an abg now chest ct w/o contrast 08/19/2019: cardiomegaly, small bilateral pleural effusion, small right lower lobe consolidation, significant bronchiectasis right upper lobe with surrounding infiltration, localized bronchiectasis left upper lobe with ground glass infiltrate. currently on a nrb mask for possible icu transfer, patient currently on 4 west with continuous pulse ox monitoring Code(s): R06.02 - SHORTNESS OF BREATH (4) S/P cervical discectomy Assessment/Plan: s/p ant cervical discectomy, c4-5 previously on tramadol, oxycodone and oxycontin but narcotics cut back for lethargy, now on oxycodone 5 or 10 depending on pain scale, stop oxycontin. hard collar in place, denies difficulty swallowing but since she has been lethargic, will put on dysphagia pureed foods. physical therapy evaluated encouraged use of incentive spirometer Code(s): Z98.890 - OTHER SPECIFIED POSTPROCEDURAL STATES (5) COPD (chronic obstructive pulmonary disease) Assessment/Plan: on duonebs as needed, no wheezing but developed acute shortness of breath. Code(s): J44.9 - CHRONIC OBSTRUCTIVE PULMONARY DISEASE, UNSPECIFIED (6) Hypertension Assessment/Plan: on cozaar with parameters to hold if systolic <100 bp more stable today Code(s): I10 - ESSENTIAL (PRIMARY) HYPERTENSION (7) Eye hemorrhage Assessment/Plan: unknown cause, no vision problems. improving since yesterday. redness/h,rg L eye (inner, small), right eye lat side subconjunctival hemorrhage , limited to conjunctiva, pupils perrla, no drainage, does not appear infected. eye drops qid, follow up with ophthalmology as an outpatient. has had no recent eye surgery, no heavy lifting, but has been coughing and suctioning frequently post op cool eye compresses may also help Code(s): H57.89 - OTHER SPECIFIED DISORDERS OF EYE AND ADNEXA (8) DVT prophylaxis Assessment/Plan: scds/ambulation Code(s): Z29.9 - ENCOUNTER FOR PROPHYLACTIC MEASURES, UNSPECIFIED (9) Prophylactic measure Assessment/Plan: fen tolerating po monitor electrolytes dysphagia pureed/honey thick full code Code(s): Z29.9 - ENCOUNTER FOR PROPHYLACTIC MEASURES, UNSPECIFIED Visit type - Emergency Visit Emergency Visit: Yes ED Registration Date: 08/24/19 Care time: The patient presented to the Emergency Department on the above date and was hospitalized for further evaluation of their emergent condition. - New Patient This patient is new to me today: No - Critical Care Critical Care patient: No - Discharge Referral Referred to [facility] Med P.C.: No
[2019-08-29] MEDS: ALBUTEROL SO4 2.5/IPRATROPIUM 0.5 INH SOL 3 ML VIAL.NEB. NEB PRN ×3 (08:27→21:48)
[2019-08-29] MEDS: TETRAHYDROZOLINE HCL EYE DROPS OU SCH ×4 (10:22→21:48)
[2019-08-29] MEDS: NYSTATIN 100000 UNIT/GM TOPICAL OINTMENT 15 GM TUBE TP SCH ×2 (10:25→21:51)
[2019-08-29] MEDS: predniSONE 20 MG TABLET (UD) PO SCH (10:30)
[2019-08-29] MEDS: SENNOSIDES 8.6MG TABLET (FP) PO SCH ×2 (10:34→21:47)
[2019-08-29] MEDS: DOCUSATE SODIUM 100 MG CAPSULE (FP) PO SCH ×2 (10:34→21:46)
[2019-08-29] MEDS: POLYETHYLENE GLYCOL 3350 119 GM BTL PO SCH (10:35)
[2019-08-29] MEDS: LOSARTAN POTASSIUM 50 MG TABLET (FP) PO SCH (10:54)
[2019-08-29] MEDS ORDERED: oxyCODONE HCL 5 MG TABLET PO PRN (10:55)
--- NOTE | 2019-08-29 11:09 | CON.ID ---
Consult Consult Specialty:: infectious diseases Referred by:: Stephanie Reason for Consultation:: hypotension,dizziness,sob,post op - History of Present Illness Chief Complaint: dizziness,sob History of Present Illness: 69 y/o F hx of COPD, Asthma, fibromyalgia, GERD diveritulitis, anxiety, HTN, HLD s/p C4-C5 anterior cervical discectomy and fusion, partial corpectomy C5-C6 POD 0. This is her second surgery on her cervical spine after previous surgery 4 years ago for herniated disc s/p injury about 10 years ago. She continued to experience neck pain as well as weakness in her left arm. Prior to this surgery , pt had been managed chronically on pain medication (percocet). post surgery patient was ok,but now has become hypotensive and hypoxic and has been started on 4 litrs of nasal maryjo patient is also very dizzy,though she is awake and alert feels tired patient was given iv fluids and also got diuresis was called to evaluated for hypoxia and hypotension - History Source History Provided By: Patient Limitations to Obtaining History: No Limitations - Alcohol/Substance Use Hx Alcohol Use: No - Smoking History Smoking history: Current every day smoker Have you smoked in the past 12 months: No Home Medications - Allergies Allergies/Adverse Reactions: Allergies Allergy/AdvReac Type Severity Reaction Status Date / Time Penicillins Allergy Intermediate Rash Verified 08/20/19 09:57 - Home Medications Home Medications: Ambulatory Orders Atorvastatin Ca [Lipitor] 40 mg PO HS 08/20/19 Baclofen 10 mg PO TID 08/20/19 Gabapentin 600 mg PO HS 08/20/19 Losartan Potassium 25 mg PO DAILY 08/20/19 Olanzapine [Zyprexa] 100 mg PO HS 08/20/19 Oxycodone HCl/Acetaminophen [Percocet 10-325 mg Tablet] 1 each PO Q6H PRN Primidone 50 mg PO HS 08/20/19 Sertraline HCl [Zoloft -] 100 mg PO HS 08/20/19 Prednisone 10 mg PO DAILY 08/24/19 Review of Systems - Review of Systems Constitutional: reports: Weakness, Other Eyes: reports: No Symptoms HENT: reports: No Symptoms Neck: reports: No Symptoms Cardiovascular: reports: No Symptoms Respiratory: reports: SOB Gastrointestinal: reports: No Symptoms Genitourinary: reports: No Symptoms Musculoskeletal: reports: No Symptoms Integumentary: reports: No Symptoms Neurological: reports: Dizziness Endocrine: reports: No Symptoms Hematology/Lymphatic: reports: No Symptoms Psychiatric: reports: No Symptoms Physical Exam Vital Signs: Vital Signs Temperature 98.8 F 08/29/19 08:00 Pulse Rate 88 08/29/19 10:56 Respiratory Rate 08/29/19 10:56 Blood Pressure 102/61 08/29/19 10:56 O2 Sat by Pulse Oximetry (%) 96 08/28/19 21:00 Constitutional: Yes: Well Nourished, Calm, Mild Distress Eyes: Yes: Conjunctiva Clear Neck: Yes: Other (hard collar) Cardiovascular: Yes: Regular Rate and Rhythm, Tachycardia, Other (hypotensive) Respiratory: Yes: On Nasal O2 (4l), Poor Air Entry, Other (crackles) Gastrointestinal: Yes: Normal Bowel Sounds, Soft Musculoskeletal: Yes: WNL Extremities: Yes: WNL Neurological: Yes: Alert, Other (dizzy) Psychiatric: Yes: Alert, Oriented Labs: CBC, BMP 08/29/19 06:05 08/29/19 06:05 Imaging - Results Chest X-ray: Report Reviewed, Image Reviewed X-ray: Report Reviewed, Image Reviewed Assessment/Plan Problem List - Problems (1) S/P cervical discectomy Code(s): Z98.890 - OTHER SPECIFIED POSTPROCEDURAL STATES (2) COPD (chronic obstructive pulmonary disease) Code(s): J44.9 - CHRONIC OBSTRUCTIVE PULMONARY DISEASE, UNSPECIFIED (3) Hypertension Code(s): I10 - ESSENTIAL (PRIMARY) HYPERTENSION (4) Eye hemorrhage Code(s): H57.89 - OTHER SPECIFIED DISORDERS OF EYE AND ADNEXA (5) hypotension 6 hypoxia 7 infiltrate in the lung i am worried if patient could be developing pneumonia i am going to start patient on cefepime also please get a ct scan of the chest monitor bp closely rest continue current mgmt
--- NOTE | 2019-08-29 11:26 | EKG ---
Test Reason : Blood Pressure : / mmHG Vent. Rate : 068 BPM Atrial Rate : 068 BPM P-R Int : 118 ms QRS Dur : 082 ms QT Int : 426 ms P-R-T Axes : 029 -14 088 degrees QTc Int : 452 ms NORMAL SINUS RHYTHM MODERATE VOLTAGE CRITERIA FOR LVH, MAY BE NORMAL VARIANT INFERIOR INFARCT , AGE UNDETERMINED ABNORMAL ECG NO PREVIOUS ECGS AVAILABLE Confirmed by BETTE WILLARD MD ([id number]) on 08/29/2019 11:25:35 AM Referred By: Confirmed By:BETTE WILLARD MD
[2019-08-29] MEDS ORDERED: DEXTROSE 5%-WATER 100 ML IVPB ONE ×2 (11:32→16:53)
[2019-08-29] MEDS ORDERED: CEFEPIME HCL 1 GM VIAL (RESTRICTED TO ID) ONE ×2 (11:32→16:53)
[2019-08-29] MEDS ORDERED: PT OWN MED DRAWER 7, Y5N ONE ×3 (11:34→21:44)
[2019-08-29] MEDS: CEFEPIME 1 GM in DEXTROSE 5%-WATER 100 ML IVPB SCH ×2 (11:36→17:05)
[2019-08-29] MEDS: ACETAMINOPHEN 325 MG TABLET (FP) PO PRN (11:37)
[2019-08-29 15:43] LABS: ARTERIAL BLD GAS O2 SATURATION 98.4 % (95-98); ARTERIAL BLOOD GAS PCO2 48.7 mmHg (35-45); ARTERIAL BLOOD GAS PO2 128 mmHg (80-100); ARTERIAL BLOOD GAS pH 7.33 (7.35-7.45)
[2019-08-29 15:44] LABS: ALLENS TEST POSITIVE; ARTERIAL BLOOD GAS BASE EXCESS -1.1 meq/l (-2-2)
[2019-08-29] MEDS: GABAPENTIN 300 MG CAPSULE PO SCH (21:47)
[2019-08-29] MEDS: ATORVASTATIN CA 40 MG TABLET (FP) PO SCH (21:47)
[2019-08-29] MEDS: SERTRALINE HCL 50 MG TABLET (FP) PO SCH (21:48)
[2019-08-29] MEDS: PRIMIDONE 50 MG TABLET PO SCH (21:51)
[2019-08-29] MEDS ORDERED: OLANZapine 10 MG TABLET PO SCH (22:00)
[2019-08-30] MEDS: NITROFURANTOIN MACROCRYSTAL 50 MG CAPSULE (FP) PO SCH ×2 (00:15→06:10)
[2019-08-30] MEDS: ALBUTEROL SO4 2.5/IPRATROPIUM 0.5 INH SOL 3 ML VIAL.NEB. NEB PRN ×2 (01:04→21:30)
[2019-08-30] MEDS ORDERED: CEFEPIME HCL 1 GM VIAL (RESTRICTED TO ID) ONE ×3 (01:07→17:44)
[2019-08-30] MEDS ORDERED: DEXTROSE 5%-WATER 100 ML IVPB ONE ×3 (01:07→17:44)
[2019-08-30] MEDS ORDERED: FUROSEMIDE 40 MG/4 ML INJECTABLE VIAL IVPUSH ONE (01:20)
--- NOTE | 2019-08-30 01:23 | HOSP ---
Subjective - Review of Symptoms Events since last encounter: Patient currently on 4 transferred due to hypotension, and elevated lacitic level - yesterday given 500ml, bolus and 100 ml/hr maintenance fluids. Today in am noted lethargic, de-sat 86% placed on o2 4l and lasix given 40mg. ID saw patient started on cefepime for pneumonia and order CT chest. Chest ct shows significant bronchiectasis right upper lobe with surrounding infiltration , localized bronchiectasis left upper lobe with groundglass infiltrate. on 08/30 @ 01:10 patient noted again with de-saturation 86%, respiratory suctioned patient neb tx given and switched to venti mask 50% o2 sat at 90%, upon exam still noted with right side crackles, will give 20 mg lasix IV push x1 , Monitor vitals closely. BP: 171/62, 66, afebrile. If no improvement consider BiPAP and will repeat labs and consider adding vanco. ID following. Physical Examination Vital Signs: Vital Signs Temperature 97.9 F 08/29/19 21:00 Pulse Rate 67 08/29/19 21:00 Respiratory Rate 19 08/29/19 21:00 Blood Pressure 128/76 08/29/19 21:00 O2 Sat by Pulse Oximetry (%) 96 08/29/19 21:00 Labs: CBC, BMP 08/29/19 06:05 08/29/19 06:05
[2019-08-30] MEDS: CEFEPIME 1 GM in DEXTROSE 5%-WATER 100 ML IVPB SCH ×3 (01:24→18:00)
[2019-08-30] MEDS: oxyCODONE HCL 5 MG TABLET PO PRN ×4 (03:05→21:25)
[2019-08-30] MEDS ORDERED: PT OWN MED DRAWER 7, Y5N ONE ×2 (06:09→09:18)
[2019-08-30] MEDS: ACETAMINOPHEN 325 MG TABLET (FP) PO PRN ×2 (06:11→21:25)
[2019-08-30] MEDS: BACLOFEN 10 MG TABLET (FP) PO SCH ×3 (06:11→21:20)
--- NOTE | 2019-08-30 07:13 | CONSULT ---
Consult - text type - Consultation Consultation Note: Brief CCM consult note
--- NOTE | 2019-08-30 07:27 | PN ---
Progress Note (short form) - Note Progress Note: CCM F/U note at request of Hospitalist service SUBJECTIVE: Pt seen and examined on medical floor On Sat afternoon Request to see pt for desaturations increase WOB Saw pt multiple times throughout 08/29 and checked up on pt overnight 08/30 Since d/c from ICU pt has had difficulty clearing secretions likely 2/2 generalized weakness and C-collar Pt was unable to receive mannual chest pt due to C-collar and unable to use pneumatic chest PT due to unable to use on 4th floor was called when pt requited NRB This author able to clear secretions with NT suctioning with improvement in WOB and saturations---NC CT chest performed 08/29 showed scattered infiltrates and bronchiechtasis, started on Cefepime by ID Overnight pt required occasional suction but has been able to maintain on Venti vs NC OBJECTIVE: Vital Signs Temp 98.3 F 08/30/19 02:00 Pulse 72 08/30/19 02:00 Resp 20 08/30/19 02:00 BP 123/59 L 08/30/19 02:00 Pulse Ox 96 08/29/19 21:00 Intake & Output 08/29/19 08/29/19 08/30/19 11:59 23:59 11:59 Intake Total 1320 150 Balance 1320 150 Intake: IV 840 Normal Saline - 1,000 ml 840 @ 100 mls/hr IV ASDIR ERIC Rx#:[id number] Oral 480 150 Other: Voiding Method Bedpan # Unmeasured Voids Void 3 1 Bowel Movement Yes No # Bowel Movements 1 Gen: NAD at rest Heart: RRR ENT: posterior pharyanx and upper airway secretions able to cleared with NT suction, s Lung: slightly diminished bases Abd: soft, nontender Ext: no edema CBC,CMP WBC 12.6 K/mm3 (4.0-10.0) H 08/29/19 06:05 RBC 4.57 M/mm3 (3.60-5.2) 08/29/19 06:05 Hgb 13.2 GM/dL (10.7-15.3) 08/29/19 06:05 Hct 41.1 % (32.4-45.2) 08/29/19 06:05 MCV 89.9 fl (80-96) 08/29/19 06:05 MCH 29.0 pg (25.7-33.7) 08/29/19 06:05 MCHC 32.2 g/dl (32.0-36.0) 08/29/19 06:05 RDW 15.1 % (11.6-15.6) 08/29/19 06:05 Plt Count 324 K/MM3 (134-434) 08/29/19 06:05 MPV 9.0 fl (7.5-11.1) 08/29/19 06:05 Absolute Neuts (auto) 8.0 K/mm3 (1.5-8.0) 08/29/19 06:05 Neutrophils % 63.8 % (42.8-82.8) 08/29/19 06:05 Lymphocytes % 26.1 % (8-40) D 08/29/19 06:05 Monocytes % 9.0 % (3.8-10.2) 08/29/19 06:05 Eosinophils % 0.8 % (0-4.5) 08/29/19 06:05 Basophils % 0.3 % (0-2.0) 08/29/19 06:05 Nucleated RBC % 0 % (0-0) 08/29/19 06:05 Sodium 140 mmol/L (136-145) 08/29/19 06:05 Potassium 3.9 mmol/L (3.5-5.1) 08/29/19 06:05 Chloride 107 mmol/L (98-107) 08/29/19 06:05 Carbon Dioxide 24 mmol/L (21-32) 08/29/19 06:05 Anion Gap 9 MMOL/L (8-16) 08/29/19 06:05 BUN 28.4 mg/dL (7-18) H 08/29/19 06:05 Creatinine 1.7 mg/dL (0.55-1.3) H 08/29/19 06:05 Est GFR (CKD-EPI)AfAm 35.29 08/29/19 06:05 Est GFR (CKD-EPI)NonAf 30.45 08/29/19 06:05 POC Glucometer 117 UNITS (80-120) 08/30/19 06:04 Random Glucose 94 mg/dL (74-106) 08/29/19 06:05 Hemoglobin A1c % 6.9 % (4.2-6.3) H 08/27/19 08:18 Lactic Acid 0.8 mmol/L (0.4-2.0) 08/29/19 01:58 Calcium 7.9 mg/dL (8.5-10.1) L 08/29/19 06:05 Phosphorus 4.4 mg/dL (2.5-4.9) 08/25/19 06:03 Magnesium 2.5 mg/dL (1.8-2.4) H 08/29/19 06:05 Total Bilirubin 0.3 mg/dL (0.2-1) 08/29/19 06:05 AST 15 U/L (15-37) 08/29/19 06:05 ALT 16 U/L (13-61) 08/29/19 06:05 Alkaline Phosphatase 72 U/L (45-117) 08/29/19 06:05 Troponin I < 0.02 ng/ml (0.00-0.05) 08/29/19 06:05 Total Protein 6.4 g/dl (6.4-8.2) 08/29/19 06:05 Albumin 2.9 g/dl (3.4-5.0) L 08/29/19 06:05 Current Medications Acetaminophen (Tylenol -) 650 mg PO Q4H PRN PRN Reason: PAIN LEVEL 3-5 Last Admin: 08/30/19 06:11 Dose: 650 mg Albuterol/Ipratropium (Duoneb -) 1 amp NEB Q4H PRN PRN Reason: SHORTNESS OF BREATH Last Admin: 08/30/19 01:04 Dose: 1 amp Atorvastatin Calcium (Lipitor -) 40 mg PO HS [facility] Last Admin: 08/29/19 21:47 Dose: 40 mg Baclofen (Lioresal -) 10 mg PO TID [facility] Last Admin: 08/30/19 06:11 Dose: 10 mg Docusate Sodium (Colace -) 100 mg PO BID [facility] Last Admin: 08/29/19 21:46 Dose: 100 mg Gabapentin (Neurontin -) 600 mg PO HS [facility] Last Admin: 08/29/19 21:47 Dose: 600 mg Cefepime HCl 1 gm/ Dextrose 100 mls @ 200 mls/hr IVPB Q8H-IV ERIC; Protocol Last Admin: 08/30/19 01:24 Dose: 200 mls/hr Losartan Potassium (Cozaar -) 50 mg PO DAILY [facility] Last Admin: 08/29/19 10:54 Dose: Not Given Nitrofurantoin Macrocrystals (Macrodantin -) 100 mg PO Q6HPO [facility] Last Admin: 08/30/19 06:10 Dose: 100 mg Nystatin (Mycostatin Ointment -) 1 applic TP BID [facility] Last Admin: 08/29/19 21:51 Dose: 1 applic Oxycodone HCl (Roxicodone -) 10 mg PO Q6H PRN PRN Reason: PAIN LEVEL 7 - 10 Last Admin: 08/30/19 03:05 Dose: 10 mg Oxycodone HCl (Roxicodone -) 5 mg PO Q6H PRN PRN Reason: PAIN LEVEL 4 - 6 Last Admin: 08/29/19 11:37 Dose: 5 mg Polyethylene Glycol (Miralax (For Daily Use) -) 17 gm PO DAILY [facility] Last Admin: 08/29/19 10:35 Dose: 17 gm Prednisone (Deltasone -) 40 mg PO DAILY [facility] Last Admin: 08/29/19 10:30 Dose: 40 mg Primidone (Mysoline -) 50 mg PO HS [facility] Last Admin: 08/29/19 21:51 Dose: 50 mg Senna (Senna -) 1 tab PO BID [facility] Last Admin: 08/29/19 21:47 Dose: 1 tab Sertraline HCl (Zoloft -) 100 mg PO HS [facility] Last Admin: 08/29/19 21:48 Dose: 100 mg Tetrahydrozoline HCl (Visine -) 1 drop OU QID [facility] Last Admin: 08/29/19 21:48 Dose: 1 drop ASSESSMENT AND PLAN: Cervical Stenosis with Radiculopathy and Myelopathy s/p CARLOS ENRIQUE C4-C5/C5-C6 ACDF Asthma/COPD HTN Hyperlipidemia Fibromyalgia Anxiety GERD - NT suction as needed -cefepime as per ID - Fio2 as needed as Spo2 >92% -please encourage IS, OOB and any chest PT/pulm toilet as cleared by Surgery - can continue to monitor on floor - If worsening congestion and inabilty to clear despite will return to ICU - consider repeat speech and swallow CCM can be reconsuted as needed. [place] [facility] [id number]
[2019-08-30 07:29] LABS: ALBUMIN 3.1 g/dl (3.4-5.0); BILIRUBIN,TOTAL 0.3 mg/dL (0.2-1); BLOOD UREA NITROGEN 27.4 mg/dL (7-18); CALCIUM 8.5 mg/dL (8.5-10.1); MAGNESIUM 2.5 mg/dL (1.8-2.4); POTASSIUM 4.4 mmol/L (3.5-5.1); TOT PROT 7.1 g/dl (6.4-8.2)
[2019-08-30 07:39] LABS: BASO % 0.2 % (0-2.0); EOS % 0.8 % (0-4.5); HEMATOCRIT 44.8 % (32.4-45.2); HEMOGLOBIN 14.2 GM/dL (10.7-15.3); LYMPH % 29.3 % (8-40); MCH 28.6 pg (25.7-33.7); MCHC 31.7 g/dl (32.0-36.0); MEAN CELL VOLUME 90.3 fl (80-96); MEAN PLT VOLUME 9.1 fl (7.5-11.1); MONO % 8.1 % (3.8-10.2); NEUT % 61.6 % (42.8-82.8); PLATELET COUNT 333 K/MM3 (134-434); RBC 4.96 M/mm3 (3.60-5.2); RDW 15.2 % (11.6-15.6); WHITE BLOOD COUNT 12.3 K/mm3 (4.0-10.0)
[2019-08-30] MEDS: SENNOSIDES 8.6MG TABLET (FP) PO SCH ×2 (09:31→21:22)
[2019-08-30] MEDS: LOSARTAN POTASSIUM 50 MG TABLET (FP) PO SCH (09:31)
[2019-08-30] MEDS: DOCUSATE SODIUM 100 MG CAPSULE (FP) PO SCH ×2 (09:31→21:19)
[2019-08-30] MEDS: predniSONE 20 MG TABLET (UD) PO SCH (09:31)
[2019-08-30] MEDS: POLYETHYLENE GLYCOL 3350 119 GM BTL PO SCH (09:31)
[2019-08-30] MEDS: NYSTATIN 100000 UNIT/GM TOPICAL OINTMENT 15 GM TUBE TP SCH ×2 (09:32→22:03)
[2019-08-30] MEDS: TETRAHYDROZOLINE HCL EYE DROPS OU SCH ×4 (09:32→22:04)
--- NOTE | 2019-08-30 10:10 | PN ---
Physical Exam: SUBJECTIVE: Patient seen and examined at the bedside. awake and alert, in no acute distress. OBJECTIVE: awake, alert, mentation back to her baseline on a venti mask 50% @ 15 liters with stable saturations ------- patient lethargic yesterday, now awake alert, conversive. mentation back to her baseline. negative for flu tele: pvcs, nsr 80s/90s ekg: anterior infarct (age undetermined), follows with visual communications instructor, Dr. Gonzalez for past history of chest pain chest ct 08/29/19: significant bronchietasis rul w/surrounding infiltration, localized bronchietasis miguel ángel with ground glass inf. on cefapime Vital Signs Period Temp Pulse Resp BP Sys/Murray Pulse Ox Last 24 Hr 97.9 F-98.6 F 62-88 18-21 102-171/53-76 96 GENERAL: The patient is awake, alert and oriented x 3, mentation back to baseline. HEAD: Normal with no signs of trauma. cervical collar in place. right eye hemorrhage improving EYES: redness/hrg L eye (inner, small), right eye lat side subconjunctival hemorrhage, limited to conjunctiva, pupils perrla, no drainage, does not appear infected. on qid saline drops ENT: Ears normal, nares patent, oropharynx clear without exudates, moist mucous membranes. NECK: Trachea midline, full range of motion, supple. LUNGS: upper lobes clear, diminished the bases HEART: Regular rate and rhythm ABDOMEN: Soft, nontender, nondistended, normoactive bowel sounds, no guarding EXTREMITIES: no edema. NEUROLOGICAL: awake, alert and in no acute distress. no facial droop, head ct negative. reports that her legs feel heavy, senstation intact, no numbness or tingling. PSYCH: cooperative Laboratory Results - last 24 hr 08/29/19 08/29/19 08/29/19 09:25 15:03 17:00 WBC RBC Hgb Hct MCV MCH MCHC RDW Plt Count MPV Absolute Neuts (auto) Neutrophils % Lymphocytes % Monocytes % Eosinophils % Basophils % Nucleated RBC % Anticoagulation Therapy No Result Required. Puncture Site Right radial ABG pH 7.33 L ABG pCO2 at Pt Temp 48.7 H ABG pO2 at Pt Temp 128 H ABG HCO3 24.8 ABG O2 Sat (Measured) 98.4 H ABG O2 Content 18.9 ABG Base Excess -1.1 Liban Test Positive O2 Delivery Device No Result Required. Oxygen Flow Rate 100 Vent Mode No Result Required. Vent Rate No Result Required. Mechanical Rate No Result Required. Pressure Support Vent No Result Required. Sodium Potassium Chloride Carbon Dioxide Anion Gap BUN Creatinine Est GFR (CKD-EPI)AfAm Est GFR (CKD-EPI)NonAf POC Glucometer 209 Random Glucose Calcium Magnesium Total Bilirubin AST ALT Alkaline Phosphatase Total Protein Albumin Influenza A (Rapid) Negative Influenza B (Rapid) Negative 08/30/19 08/30/19 08/30/19 06:04 06:12 06:12 WBC 12.3 H RBC 4.96 Hgb 14.2 Hct 44.8 MCV 90.3 MCH 28.6 MCHC 31.7 L RDW 15.2 Plt Count 333 MPV 9.1 Absolute Neuts (auto) 7.5 Neutrophils % 61.6 Lymphocytes % 29.3 Monocytes % 8.1 Eosinophils % 0.8 Basophils % 0.2 Nucleated RBC % 0 Anticoagulation Therapy Puncture Site ABG pH ABG pCO2 at Pt Temp ABG pO2 at Pt Temp ABG HCO3 ABG O2 Sat (Measured) ABG O2 Content ABG Base Excess Liban Test O2 Delivery Device Oxygen Flow Rate Vent Mode Vent Rate Mechanical Rate Pressure Support Vent Sodium 143 Potassium 4.4 Chloride 106 Carbon Dioxide 29 Anion Gap 8 BUN 27.4 H Creatinine 1.0 Est GFR (CKD-EPI)AfAm 67.04 Est GFR (CKD-EPI)NonAf 57.84 POC Glucometer 117 Random Glucose 104 Calcium 8.5 Magnesium 2.5 H Total Bilirubin 0.3 AST 16 ALT 17 Alkaline Phosphatase 76 Total Protein 7.1 Albumin 3.1 L Influenza A (Rapid) Influenza B (Rapid) Active Medications Generic Name Dose Route Start Last Admin Trade Name Freq PRN Reason Stop Dose Admin Acetaminophen 650 mg 08/29/19 02:41 08/30/19 06:11 Tylenol - PO 650 mg Q4H PRN Administration PAIN LEVEL 3-5 Albuterol/Ipratropium 1 amp 08/29/19 02:41 08/30/19 01:04 Duoneb - NEB 1 amp Q4H PRN Administration SHORTNESS OF BREATH Atorvastatin Calcium 40 mg 08/29/19 22:00 08/29/19 21:47 Lipitor - PO 40 mg HS ERIC Administration Baclofen 10 mg 08/29/19 06:00 08/30/19 06:11 Lioresal - PO 10 mg TID ERIC Administration Docusate Sodium 100 mg 08/29/19 10:00 08/30/19 09:31 Colace - PO 100 mg BID ERIC Administration Gabapentin 600 mg 08/29/19 22:00 08/29/19 21:47 Neurontin - PO 600 mg HS ERIC Administration Cefepime HCl 1 gm/ Dextrose 100 mls @ 200 mls/hr 08/29/19 11:30 08/30/19 09: 31 IVPB 200 mls/hr Q8H-IV ERIC Administration Protocol Losartan Potassium 50 mg 08/29/19 10:00 08/30/19 09:31 Cozaar - PO 50 mg DAILY ERIC Administration Nitrofurantoin Macrocrystals 100 mg 08/29/19 06:00 08/30/19 06:10 Macrodantin - PO 100 mg Q6HPO ERIC Administration Nystatin 1 applic 08/29/19 10:00 08/30/19 09:32 Mycostatin Ointment - TP 1 applic BID ERIC Administration Oxycodone HCl 10 mg 08/29/19 02:41 08/30/19 09:29 Roxicodone - PO 10 mg Q6H PRN Administration PAIN LEVEL 7 - 10 Oxycodone HCl 5 mg 08/29/19 10:55 08/29/19 11:37 Roxicodone - PO 5 mg Q6H PRN Administration PAIN LEVEL 4 - 6 Polyethylene Glycol 17 gm 08/29/19 10:00 08/30/19 09:31 Miralax (For Daily Use) - PO 17 gm DAILY ERIC Administration Prednisone 40 mg 08/29/19 10:00 08/30/19 09:31 Deltasone - PO 40 mg DAILY ERIC Administration Primidone 50 mg 08/29/19 22:00 08/29/19 21:51 Mysoline - PO 50 mg HS ERIC Administration Senna 1 tab 08/29/19 10:00 08/30/19 09:31 Senna - PO 1 tab BID ERIC Administration Sertraline HCl 100 mg 08/29/19 22:00 08/29/19 21:48 Zoloft - PO 100 mg HS ERIC Administration Tetrahydrozoline HCl 1 drop 08/29/19 10:00 08/30/19 09:32 Visine - OU 1 drop QID ERIC Administration ASSESSMENT/PLAN: Problem List - Problems (1) Acute metabolic encephalopathy Assessment/Plan: resolved ams in the setting of acute pneumonia mentation back to baseline on cefepime monitor Code(s): G93.41 - METABOLIC ENCEPHALOPATHY (2) Pneumonia Assessment/Plan: chest ct shows significant bronchiectasis right upper lobe with surrounding infiltration, localized bronchiectasis left upper lobe with groundglass infiltrate on cefepime per ID. on venti mask, with attempts to wean off to nasal cannula monitor airway with continuous pulse ox monitoring Code(s): J18.9 - PNEUMONIA, UNSPECIFIED ORGANISM (3) Bronchiectasis Assessment/Plan: chest ct shows significant bronchiectasis of right upper lobe with surrounding infiltration, localized bronchiectasis left upper lobe with groundglass infiltrates. pulmonary consulted Code(s): J47.9 - BRONCHIECTASIS, UNCOMPLICATED (4) Shortness of breath Assessment/Plan: abg normal, with no co2 retention chest ct w/o contrast 08/19/2019: cardiomegaly, small bilateral pleural effusion, small right lower lobe consolidation, significant bronchiectasis right upper lobe with surrounding infiltration, localized bronchiectasis left upper lobe with ground glass infiltrate. maintain on continuous pulse ox monitoring. Code(s): R06.02 - SHORTNESS OF BREATH (5) S/P cervical discectomy Assessment/Plan: s/p ant cervical discectomy, c4-5 previously on tramadol, oxycodone and oxycontin but narcotics cut back for lethargy, now on oxycodone 5 or 10 depending on pain scale, stop oxycontin. hard collar in place encouraged use of incentive spirometer Code(s): Z98.890 - OTHER SPECIFIED POSTPROCEDURAL STATES (6) COPD (chronic obstructive pulmonary disease) Assessment/Plan: on duonebs as needed, no wheezing but developed acute shortness of breath. Code(s): J44.9 - CHRONIC OBSTRUCTIVE PULMONARY DISEASE, UNSPECIFIED (7) Hypertension Assessment/Plan: on cozaar with parameters to hold if systolic <100, bp stable. Code(s): I10 - ESSENTIAL (PRIMARY) HYPERTENSION (8) Eye hemorrhage Assessment/Plan: unknown cause, no vision problems, no eye pain. improving since yesterday. continue saline drops qid Code(s): H57.89 - OTHER SPECIFIED DISORDERS OF EYE AND ADNEXA (9) [place] (acute kidney injury) Assessment/Plan: resolved closely monitor since patient received lasix 60mg in last 24 hrs. monitor electrolytes. Code(s): N17.9 - ACUTE KIDNEY FAILURE, UNSPECIFIED (10) DVT prophylaxis Assessment/Plan: scds/ambulation Code(s): Z29.9 - ENCOUNTER FOR PROPHYLACTIC MEASURES, UNSPECIFIED (11) Prophylactic measure Assessment/Plan: fen tolerating po monitor electrolytes dysphagia pureed/honey thick full code Code(s): Z29.9 - ENCOUNTER FOR PROPHYLACTIC MEASURES, UNSPECIFIED Visit type - Emergency Visit Emergency Visit: Yes ED Registration Date: 08/24/19 Care time: The patient presented to the Emergency Department on the above date and was hospitalized for further evaluation of their emergent condition. - New Patient This patient is new to me today: No - Critical Care Critical Care patient: No - Discharge Referral Referred to [facility] Med P.C.: No
--- NOTE | 2019-08-30 12:11 | CON.CARD ---
Consult Consult Specialty:: Cardiology Referred by:: Medicine Reason for Consultation:: abnormal EKG - History of Present Illness Chief Complaint: short of breath History of Present Illness: 69F h/o COPD, asthma, GERD, HTN, HLD, s/p C4-5 cervical discectomy and fusion, partial corpectomy C5-6 08/24. No chest pain, palps, dizziness, dyspnea. Treating here for PNA. Sees Dr. Gonzalez for cardio, no prior cardiac hx. 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 Had been lethargic, alt mental status - improving. - Alcohol/Substance Use Hx Alcohol Use: No - Smoking History Smoking history: Current every day smoker Have you smoked in the past 12 months: No Home Medications - Allergies Allergies/Adverse Reactions: Allergies Allergy/AdvReac Type Severity Reaction Status Date / Time Penicillins Allergy Intermediate Rash Verified 08/20/19 09:57 - Home Medications Home Medications: Ambulatory Orders Atorvastatin Ca [Lipitor] 40 mg PO HS 08/20/19 Baclofen 10 mg PO TID 08/20/19 Gabapentin 600 mg PO HS 08/20/19 Losartan Potassium 25 mg PO DAILY 08/20/19 Olanzapine [Zyprexa] 100 mg PO HS 08/20/19 Oxycodone HCl/Acetaminophen [Percocet 10-325 mg Tablet] 1 each PO Q6H PRN Primidone 50 mg PO HS 08/20/19 Sertraline HCl [Zoloft -] 100 mg PO HS 08/20/19 Prednisone 10 mg PO DAILY 08/24/19 Family Medical History Family History: Unremarkable Review of Systems - Review of Systems Constitutional: reports: No Symptoms Eyes: reports: No Symptoms HENT: reports: No Symptoms Neck: reports: No Symptoms Cardiovascular: reports: No Symptoms Respiratory: reports: No Symptoms Gastrointestinal: reports: No Symptoms Genitourinary: reports: No Symptoms Musculoskeletal: reports: No Symptoms Integumentary: reports: No Symptoms Neurological: reports: No Symptoms Endocrine: reports: No Symptoms Hematology/Lymphatic: reports: No Symptoms Psychiatric: reports: No Symptoms Vital Signs: Vital Signs Temperature 98.1 F 08/30/19 06:00 Pulse Rate 62 08/30/19 06:00 Respiratory Rate 18 08/30/19 06:00 Blood Pressure 138/74 08/30/19 06:00 O2 Sat by Pulse Oximetry (%) 96 08/29/19 21:00 Constitutional: Yes: No Distress, Calm Eyes: Yes: Conjunctiva Clear, EOM Intact HENT: Yes: Atraumatic, Normocephalic Neck: Yes: Other (+ c collar) Respiratory: Yes: Regular, CTA Bilaterally Gastrointestinal: Yes: Normal Bowel Sounds, Soft Cardiovascular: Yes: Regular Rate and Rhythm JVD: No Heart Sounds: Yes: S1, S2 Musculoskeletal: No: Back Pain Extremities: No: Cold Edema: No Integumentary: No: Jaundice Neurological: Yes: Alert, Oriented Psychiatric: No: Agitated - Other Data Labs, Other Data: CBC, BMP 08/30/19 06:12 08/30/19 06:12 Assessment/Plan EKG: sinus, old inf infarct, nonspecific ST changes - no prior CT chest cardiomegal, sm gennaro pleural effusions, sm RLL consolidation, bronchiectasis of RUL and FELTON with infiltrate tele: sinus abnormal EKG - no prior EKG - can obtain old EKG from Dr. Gonzalez's office - trop neg x 3, less likely ACS - check echo PNA, shortness of breath, bronchiectasis - manage per primary - received IV lasix x 3 doses, appears euvolemic now cervical discectomy and fusion of C4/5 - manage per surgery COPD - manage per primary, pulm HTN - cont current meds HLD - cont statin
--- NOTE | 2019-08-30 13:34 | PN ---
Progress Note, Physician History of Present Illness: stable improving - Current Medication List Current Medications: Active Medications Acetaminophen (Tylenol -) 650 mg PO Q4H PRN PRN Reason: PAIN LEVEL 3-5 Last Admin: 08/30/19 06:11 Dose: 650 mg Albuterol/Ipratropium (Duoneb -) 1 amp NEB Q4H PRN PRN Reason: SHORTNESS OF BREATH Last Admin: 08/30/19 01:04 Dose: 1 amp Atorvastatin Calcium (Lipitor -) 40 mg PO [facility] Last Admin: 08/29/19 21:47 Dose: 40 mg Baclofen (Lioresal -) 10 mg PO TID [facility] Last Admin: 08/30/19 06:11 Dose: 10 mg Docusate Sodium (Colace -) 100 mg PO BID [facility] Last Admin: 08/30/19 09:31 Dose: 100 mg Gabapentin (Neurontin -) 600 mg PO [facility] Last Admin: 08/29/19 21:47 Dose: 600 mg Cefepime HCl 1 gm/ Dextrose 100 mls @ 200 mls/hr IVPB Q8H-IV [facility]; Protocol Last Admin: 08/30/19 09:31 Dose: 200 mls/hr Losartan Potassium (Cozaar -) 50 mg PO DAILY [facility] Last Admin: 08/30/19 09:31 Dose: 50 mg Nystatin (Mycostatin Ointment -) 1 applic TP BID [facility] Last Admin: 08/30/19 09:32 Dose: 1 applic Oxycodone HCl (Roxicodone -) 10 mg PO Q6H PRN PRN Reason: PAIN LEVEL 7 - 10 Last Admin: 08/30/19 09:29 Dose: 10 mg Oxycodone HCl (Roxicodone -) 5 mg PO Q4H PRN PRN Reason: PAIN LEVEL 4 - 6 Polyethylene Glycol (Miralax (For Daily Use) -) 17 gm PO DAILY [facility] Last Admin: 08/30/19 09:31 Dose: 17 gm Prednisone (Deltasone -) 40 mg PO DAILY [facility] Last Admin: 08/30/19 09:31 Dose: 40 mg Primidone (Mysoline -) 50 mg PO [facility] Last Admin: 08/29/19 21:51 Dose: 50 mg Senna (Senna -) 1 tab PO BID [facility] Last Admin: 08/30/19 09:31 Dose: 1 tab Sertraline HCl (Zoloft -) 100 mg PO HS [facility] Last Admin: 08/29/19 21:48 Dose: 100 mg Tetrahydrozoline HCl (Visine -) 1 drop OU QID [facility] Last Admin: 08/30/19 09:32 Dose: 1 drop - Objective Vital Signs: Vital Signs Temperature 97.4 F L 08/30/19 10:00 Pulse Rate 77 08/30/19 10:00 Respiratory Rate 18 08/30/19 10:00 Blood Pressure 138/66 08/30/19 10:00 O2 Sat by Pulse Oximetry (%) 95 08/30/19 09:00 Constitutional: Yes: No Distress, Calm Cardiovascular: Yes: S1, S2 Respiratory: Yes: Regular, Other (on face mask) Gastrointestinal: Yes: Normal Bowel Sounds, Soft Musculoskeletal: Yes: WNL Extremities: Yes: WNL Neurological: Yes: Alert Psychiatric: Yes: Alert Labs: CBC, BMP 08/30/19 06:12 08/30/19 06:12 Assessment/Plan Problem List - Problems (1) S/P cervical discectomy Code(s): Z98.890 - OTHER SPECIFIED POSTPROCEDURAL STATES (2) COPD (chronic obstructive pulmonary disease) Code(s): J44.9 - CHRONIC OBSTRUCTIVE PULMONARY DISEASE, UNSPECIFIED (3) Hypertension Code(s): I10 - ESSENTIAL (PRIMARY) HYPERTENSION (4) Eye hemorrhage Code(s): H57.89 - OTHER SPECIFIED DISORDERS OF EYE AND ADNEXA (5) hypotension 6 hypoxia 7 infiltrate in the lung plan continue current mgmt resp support abx rest as per the team
[2019-08-30] MEDS: ATORVASTATIN CA 40 MG TABLET (FP) PO SCH (21:20)
[2019-08-30] MEDS: GABAPENTIN 300 MG CAPSULE PO SCH (21:21)
[2019-08-30] MEDS: PRIMIDONE 50 MG TABLET PO SCH (21:21)
[2019-08-30] MEDS: SERTRALINE HCL 50 MG TABLET (FP) PO SCH (21:23)
[2019-08-31] MEDS: ACETAMINOPHEN 325 MG TABLET (FP) PO PRN ×3 (01:18→23:14)
[2019-08-31] MEDS ORDERED: CEFEPIME HCL 1 GM VIAL (RESTRICTED TO ID) ONE ×2 (03:03→10:00)
[2019-08-31] MEDS ORDERED: DEXTROSE 5%-WATER 100 ML IVPB ONE ×2 (03:04→10:01)
[2019-08-31] MEDS: CEFEPIME 1 GM in DEXTROSE 5%-WATER 100 ML IVPB SCH ×2 (03:05→10:02)
[2019-08-31] MEDS: oxyCODONE HCL 5 MG TABLET PO PRN ×5 (03:18→23:14)
[2019-08-31] MEDS: BACLOFEN 10 MG TABLET (FP) PO SCH ×3 (06:35→21:26)
[2019-08-31 06:59] LABS: BASO % 0.5 % (0-2.0); EOS % 1.5 % (0-4.5); HEMATOCRIT 40.6 % (32.4-45.2); HEMOGLOBIN 13.5 GM/dL (10.7-15.3); LYMPH % 34.8 % (8-40); MCH 29.8 pg (25.7-33.7); MCHC 33.4 g/dl (32.0-36.0); MEAN CELL VOLUME 89.3 fl (80-96); MEAN PLT VOLUME 9.2 fl (7.5-11.1); MONO % 7.4 % (3.8-10.2); NEUT % 55.8 % (42.8-82.8); PLATELET COUNT 324 K/MM3 (134-434); RBC 4.54 M/mm3 (3.60-5.2); RDW 14.9 % (11.6-15.6); WHITE BLOOD COUNT 11.9 K/mm3 (4.0-10.0)
[2019-08-31 08:38] LABS: BILIRUBIN,TOTAL 0.4 mg/dL (0.2-1); BLOOD UREA NITROGEN 26.8 mg/dL (7-18); CALCIUM 8.6 mg/dL (8.5-10.1); CREATININE 0.8 mg/dL (0.55-1.3); MAGNESIUM 2.4 mg/dL (1.8-2.4); POTASSIUM 4.6 mmol/L (3.5-5.1); TOT PROT 6.8 g/dl (6.4-8.2)
[2019-08-31] MEDS ORDERED: PT OWN MED DRAWER 7, Y5N ONE ×3 (09:57→21:18)
[2019-08-31] MEDS: predniSONE 20 MG TABLET (UD) PO SCH (09:59)
[2019-08-31] MEDS: DOCUSATE SODIUM 100 MG CAPSULE (FP) PO SCH ×2 (09:59→21:26)
[2019-08-31] MEDS: POLYETHYLENE GLYCOL 3350 119 GM BTL PO SCH (09:59)
[2019-08-31] MEDS: SENNOSIDES 8.6MG TABLET (FP) PO SCH ×2 (09:59→21:26)
[2019-08-31] MEDS: LOSARTAN POTASSIUM 50 MG TABLET (FP) PO SCH (10:00)
[2019-08-31] MEDS: TETRAHYDROZOLINE HCL EYE DROPS OU SCH ×4 (10:04→21:39)
[2019-08-31] MEDS: NYSTATIN 100000 UNIT/GM TOPICAL OINTMENT 15 GM TUBE TP SCH ×2 (10:04→21:39)
--- NOTE | 2019-08-31 12:46 | ECHO ---
Name: TEOFILO ORELLANA Exam:Adult Echocardiogram Study Date: 08/31/2019 11:41 AM Age: 69 yrs Height: 62 in Weight: 168 lb BSA: 1.8 m2 MMode/2D Measurements & Calculations IVSd: 1.1 cm Ao root diam: 2.5 cm LVIDd: 4.2 cm LA dimension: 4.1 cm LVIDs: 3.0 cm ACS: 1.9 cm LVPWd: 1.0 cm EDV(Teich): 77.9 ml LVOT diam: 1.8 cm ESV(Teich): 35.0 ml Doppler Measurements & Calculations MV E max sorin: 64.2 cm/sec Ao V2 max: 124.2 cm/sec MV A max sorin: 76.5 cm/sec Ao max P.2 mmHg MV E/A: 0.84 Ao V2 mean: 89.1 cm/sec MV dec time: 0.19 sec Ao mean P.4 mmHg Ao V2 VTI: 27.6 cm JINNY(V,D): 1.7 cm2 LV V1 max P.5 mmHg TR max sorin: 228.1 cm/sec LV V1 max: 78.5 cm/sec TR max P.9 mmHg PA V2 max: 71.6 cm/sec PA max P.0 mmHg Procedure A complete two-dimensional transthoracic echocardiogram was performed (2D, M-mode, Doppler and color flow Doppler). Technically limited study. Left Ventricle The left ventricle is normal in size. Left ventricular systolic function is normal. Ejection Fraction = 55- 60%. No regional wall motion abnormalities noted. Right Ventricle The right ventricle is normal size. The right ventricular systolic function is normal. Atria The left atrium is mildly dilated. Right atrial size is normal. Mitral Valve The mitral valve is normal in structure and function. There is no mitral regurgitation noted. Tricuspid Valve The tricuspid valve is normal in structure and function. There is mild tricuspid regurgitation. Right ventricular systolic pressure is normal. Aortic Valve There is mild aortic sclerosis.;. Trace aortic regurgitation. Pulmonic Valve The pulmonic valve is not well visualized. Great Vessels The aortic root is normal size. Pericardium/Pleura There is no pericardial effusion. Interpretation Summary Technically limited study The left ventricle is normal in size. Left ventricular systolic function is normal. No regional wall motion abnormalities noted. Ejection Fraction = 55-60%. The right ventricular systolic function is normal. The left atrium is mildly dilated. Right atrial size is normal. There is mild tricuspid regurgitation. There is mild aortic sclerosis. Trace aortic regurgitation. There is no pericardial effusion. Mark Bautista MD 08/31/2019 12:46 PM
--- NOTE | 2019-08-31 15:05 | PN ---
Physical Exam: SUBJECTIVE: Patient seen and examined at the bedside. awake, alert, conversing with her family. feels better and feels her breathing is improved. OBJECTIVE: awake, alert, mentation back to her baseline on 2 liters of nasal cannula with stable oxygen levels. 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 Gonzalez for past history of chest pain chest ct 08/29/19: significant bronchietasis rul w/surrounding infiltration, localized bronchietasis miguel ángel with ground glass inf. on cefapime echo 08/31/19: lv normal, ef 55-60%, la mild dilated, mild tr, mild as, trace aortir regurg. ------- Patient is a 69 year old female with a significant past medical history of asthma, fibromyalgia, GERD, diverticulitis, anxiety, HTN, HLD. She is s/p C4- C5 anterior cervical discectomy and fusion, partial corpectomy C5-C6 on 08/24/2019 , hospitalization complicated when patient became hypotensive, hypoxic on 2019 and was transferred from [facility] to [facility] for close monitoring of airway. Chest ct shows pneumonia, and urine cultures +esbl and kleb. Vitals are now stable and she is being weaned off oxygen as tolerated. Antibiotics changed to meropenem per ID. Vital Signs Period Temp Pulse Resp BP Sys/Murray Pulse Ox Last 24 Hr 97 F-98.0 F 61-83 18-18 119-154/56-73 97-97 GENERAL: The patient is awake, alert and oriented x 3, mentation back to baseline. HEAD: Normal with no signs of trauma. cervical collar in place. right eye hemorrhage improving EYES: redness/hrg L eye (inner, small), right eye lat side subconjunctival hemorrhage, limited to conjunctiva, pupils perrla, no drainage, does not appear infected. on qid saline drops ENT: Ears normal, nares patent, oropharynx clear without exudates, moist mucous membranes. NECK: Trachea midline, full range of motion, supple. LUNGS: upper lobes clear, diminished the bases HEART: Regular rate and rhythm ABDOMEN: Soft, nontender, nondistended, normoactive bowel sounds, no guarding EXTREMITIES: no edema. NEUROLOGICAL: awake, alert and in no acute distress. no facial droop, head ct negative. reports that her legs feel heavy, senstation intact, no numbness or tingling. PSYCH: cooperative Laboratory Results - last 24 hr 08/30/19 08/31/19 08/31/19 17:17 05:24 06:20 WBC 11.9 H RBC 4.54 Hgb 13.5 Hct 40.6 MCV 89.3 MCH 29.8 MCHC 33.4 RDW 14.9 Plt Count 324 MPV 9.2 Absolute Neuts (auto) 6.7 Neutrophils % 55.8 Lymphocytes % 34.8 Monocytes % 7.4 Eosinophils % 1.5 D Basophils % 0.5 Nucleated RBC % 0 Sodium Potassium Chloride Carbon Dioxide Anion Gap BUN Creatinine Est GFR (CKD-EPI)AfAm Est GFR (CKD-EPI)NonAf POC Glucometer 191 102 Random Glucose Calcium Magnesium Total Bilirubin AST ALT Alkaline Phosphatase Total Protein Albumin 08/31/19 06:20 WBC RBC Hgb Hct MCV MCH MCHC RDW Plt Count MPV Absolute Neuts (auto) Neutrophils % Lymphocytes % Monocytes % Eosinophils % Basophils % Nucleated RBC % Sodium 141 Potassium 4.6 Chloride 106 Carbon Dioxide 29 Anion Gap 6 L BUN 26.8 H Creatinine 0.8 Est GFR (CKD-EPI)AfAm 87.80 Est GFR (CKD-EPI)NonAf 75.75 POC Glucometer Random Glucose 90 Calcium 8.6 Magnesium 2.4 Total Bilirubin 0.4 AST 16 ALT 16 Alkaline Phosphatase 75 Total Protein 6.8 Albumin 3.0 L Active Medications Generic Name Dose Route Start Last Admin Trade Name Freq PRN Reason Stop Dose Admin Acetaminophen 650 mg 08/29/19 02:41 08/31/19 08:02 Tylenol - PO 650 mg Q4H PRN Administration PAIN LEVEL 3-5 Albuterol/Ipratropium 1 amp 08/29/19 02:41 08/30/19 21:30 Duoneb - NEB 1 amp Q4H PRN Administration SHORTNESS OF BREATH Atorvastatin Calcium 40 mg 08/29/19 22:00 08/30/19 21:20 Lipitor - PO 40 mg HS [facility] Administration Baclofen 10 mg 08/29/19 06:00 08/31/19 14:55 Lioresal - PO 10 mg TID [facility] Administration Docusate Sodium 100 mg 08/29/19 10:00 08/31/19 09:59 Colace - PO 100 mg BID [facility] Administration Gabapentin 600 mg 08/29/19 22:00 08/30/19 21:21 Neurontin - PO 600 mg HS [facility] Administration Cefepime HCl 1 gm/ Dextrose 100 mls @ 200 mls/hr 08/29/19 11:30 08/31/19 10: 02 IVPB 200 mls/hr Q8H-IV [facility] Administration Protocol Losartan Potassium 50 mg 08/29/19 10:00 08/31/19 10:00 Cozaar - PO 50 mg DAILY [facility] Administration Nystatin 1 applic 08/29/19 10:00 08/31/19 10:04 Mycostatin Ointment - TP 1 applic BID [facility] Administration Oxycodone HCl 10 mg 08/29/19 02:41 08/31/19 09:58 Roxicodone - PO 10 mg Q6H PRN Administration PAIN LEVEL 7 - 10 Oxycodone HCl 5 mg 08/30/19 10:57 08/31/19 14:58 Roxicodone - PO 5 mg Q4H PRN Administration PAIN LEVEL 4 - 6 Polyethylene Glycol 17 gm 08/29/19 10:00 08/31/19 09:59 Miralax (For Daily Use) - PO 17 gm DAILY [facility] Administration Prednisone 40 mg 08/29/19 10:00 08/31/19 09:59 Deltasone - PO 40 mg DAILY [facility] Administration Primidone 50 mg 08/29/19 22:00 08/30/19 21:21 Mysoline - PO 50 mg HS [facility] Administration Senna 1 tab 08/29/19 10:00 08/31/19 09:59 Senna - PO 1 tab BID [facility] Administration Sertraline HCl 100 mg 08/29/19 22:00 08/30/19 21:23 Zoloft - PO 100 mg HS [facility] Administration Tetrahydrozoline HCl 1 drop 08/29/19 10:00 08/31/19 14:54 Visine - OU 1 drop QID [facility] Administration ASSESSMENT/PLAN: Problem List - Problems (1) Pneumonia Assessment/Plan: chest ct shows significant bronchiectasis right upper lobe with surrounding infiltration, localized bronchiectasis left upper lobe with groundglass infiltrate on meropenem per ID. on venti mask, with attempts to wean off to nasal cannula monitor airway with continuous pulse ox monitoring Code(s): J18.9 - PNEUMONIA, UNSPECIFIED ORGANISM (2) Bronchiectasis Assessment/Plan: chest ct shows significant bronchiectasis of right upper lobe with surrounding infiltration, localized bronchiectasis left upper lobe with groundglass infiltrates. pulmonary consulted Code(s): J47.9 - BRONCHIECTASIS, UNCOMPLICATED (3) Acute metabolic encephalopathy Assessment/Plan: resolved ams in the setting of acute pneumonia and + UTI mentation back to baseline on meropenem monitor Code(s): G93.41 - METABOLIC ENCEPHALOPATHY (4) Klebsiella infection Assessment/Plan: on meropenem Code(s): A49.8 - OTHER BACTERIAL INFECTIONS OF UNSPECIFIED SITE (5) ESBL (extended spectrum beta-lactamase) producing bacteria infection Assessment/Plan: on meropenem Code(s): A49.9 - BACTERIAL INFECTION, UNSPECIFIED; Z16.12 - EXTENDED SPECTRUM BETA LACTAMASE (ESBL) RESISTANCE (6) Shortness of breath Assessment/Plan: abg normal, with no co2 retention chest ct w/o contrast 08/19/2019: cardiomegaly, small bilateral pleural effusion, small right lower lobe consolidation, significant bronchiectasis right upper lobe with surrounding infiltration, localized bronchiectasis left upper lobe with ground glass infiltrate. maintain on continuous pulse ox monitoring. Code(s): R06.02 - SHORTNESS OF BREATH (7) S/P cervical discectomy Assessment/Plan: s/p ant cervical discectomy, c4-5 previously on tramadol, oxycodone and oxycontin but narcotics cut back for lethargy, now on oxycodone 5 or 10 depending on pain scale, stop oxycontin. hard collar in place encouraged use of incentive spirometer Code(s): Z98.890 - OTHER SPECIFIED POSTPROCEDURAL STATES (8) COPD (chronic obstructive pulmonary disease) Assessment/Plan: on duonebs as needed, no wheezing but developed acute shortness of breath. Code(s): J44.9 - CHRONIC OBSTRUCTIVE PULMONARY DISEASE, UNSPECIFIED (9) Hypertension Assessment/Plan: on cozaar with parameters to hold if systolic <100, bp stable. Code(s): I10 - ESSENTIAL (PRIMARY) HYPERTENSION (10) Eye hemorrhage Assessment/Plan: unknown cause, no vision problems, no eye pain. improving since yesterday. continue saline drops qid Code(s): H57.89 - OTHER SPECIFIED DISORDERS OF EYE AND ADNEXA (11) [place] (acute kidney injury) Assessment/Plan: resolved closely monitor since patient received lasix 60mg in last 24 hrs. monitor electrolytes. Code(s): N17.9 - ACUTE KIDNEY FAILURE, UNSPECIFIED (12) DVT prophylaxis Assessment/Plan: scds/ambulation Code(s): Z29.9 - ENCOUNTER FOR PROPHYLACTIC MEASURES, UNSPECIFIED (13) Prophylactic measure Assessment/Plan: fen tolerating po monitor electrolytes dysphagia pureed/honey thick full code Code(s): Z29.9 - ENCOUNTER FOR PROPHYLACTIC MEASURES, UNSPECIFIED Visit type - Emergency Visit Emergency Visit: Yes ED Registration Date: 08/24/19 Care time: The patient presented to the Emergency Department on the above date and was hospitalized for further evaluation of their emergent condition. - New Patient This patient is new to me today: No - Critical Care Critical Care patient: No - Discharge Referral Referred to [facility] Med [facility] No
--- NOTE | 2019-08-31 15:08 | PN ---
Progress Note, Physician History of Present Illness: stable no new issues improving - Current Medication List Current Medications: Active Medications Acetaminophen (Tylenol -) 650 mg PO Q4H PRN PRN Reason: PAIN LEVEL 3-5 Last Admin: 08/31/19 08:02 Dose: 650 mg Albuterol/Ipratropium (Duoneb -) 1 amp NEB Q4H PRN PRN Reason: SHORTNESS OF BREATH Last Admin: 08/30/19 21:30 Dose: 1 amp Atorvastatin Calcium (Lipitor -) 40 mg PO [facility] Last Admin: 08/30/19 21:20 Dose: 40 mg Baclofen (Lioresal -) 10 mg PO TID [facility] Last Admin: 08/31/19 14:55 Dose: 10 mg Docusate Sodium (Colace -) 100 mg PO BID [facility] Last Admin: 08/31/19 09:59 Dose: 100 mg Gabapentin (Neurontin -) 600 mg PO [facility] Last Admin: 08/30/19 21:21 Dose: 600 mg Losartan Potassium (Cozaar -) 50 mg PO DAILY [facility] Last Admin: 08/31/19 10:00 Dose: 50 mg Nystatin (Mycostatin Ointment -) 1 applic TP BID [facility] Last Admin: 08/31/19 10:04 Dose: 1 applic Oxycodone HCl (Roxicodone -) 10 mg PO Q6H PRN PRN Reason: PAIN LEVEL 7 - 10 Last Admin: 08/31/19 09:58 Dose: 10 mg Oxycodone HCl (Roxicodone -) 5 mg PO Q4H PRN PRN Reason: PAIN LEVEL 4 - 6 Last Admin: 08/31/19 14:58 Dose: 5 mg Polyethylene Glycol (Miralax (For Daily Use) -) 17 gm PO DAILY [facility] Last Admin: 08/31/19 09:59 Dose: 17 gm Prednisone (Deltasone -) 40 mg PO DAILY [facility] Last Admin: 08/31/19 09:59 Dose: 40 mg Primidone (Mysoline -) 50 mg PO [facility] Last Admin: 08/30/19 21:21 Dose: 50 mg Senna (Senna -) 1 tab PO BID [facility] Last Admin: 08/31/19 09:59 Dose: 1 tab Sertraline HCl (Zoloft -) 100 mg PO [facility] Last Admin: 08/30/19 21:23 Dose: 100 mg Tetrahydrozoline HCl (Visine -) 1 drop OU QID [facility] Last Admin: 08/31/19 14:54 Dose: 1 drop - Objective Vital Signs: Vital Signs Temperature 98 F 08/31/19 09:21 Pulse Rate 78 08/31/19 09:21 Respiratory Rate 18 08/31/19 09:21 Blood Pressure 154/68 08/31/19 09:21 O2 Sat by Pulse Oximetry (%) 97 08/31/19 09:00 Constitutional: Yes: No Distress, Calm Cardiovascular: Yes: S1, S2 Respiratory: Yes: Regular, CTA Bilaterally Gastrointestinal: Yes: Normal Bowel Sounds, Soft Musculoskeletal: Yes: WNL Extremities: Yes: WNL Neurological: Yes: Alert, Oriented Psychiatric: Yes: Alert, Oriented Labs: CBC, BMP 08/31/19 06:20 08/31/19 06:20 Assessment/Plan Problem List - Problems (1) S/P cervical discectomy Code(s): Z98.890 - OTHER SPECIFIED POSTPROCEDURAL STATES (2) COPD (chronic obstructive pulmonary disease) Code(s): J44.9 - CHRONIC OBSTRUCTIVE PULMONARY DISEASE, UNSPECIFIED (3) Hypertension Code(s): I10 - ESSENTIAL (PRIMARY) HYPERTENSION (4) Eye hemorrhage Code(s): H57.89 - OTHER SPECIFIED DISORDERS OF EYE AND ADNEXA (5) hypotension 6 hypoxia 7 infiltrate in the lung plan continue current mgmt resp support abx rest as per the team
--- NOTE | 2019-08-31 16:26 | PN ---
Progress Note (short form) - Note Progress Note: s: dyspnea, cough improving. no chest pain, palps, dizziness Current Medications Acetaminophen (Tylenol -) 650 mg PO Q4H PRN PRN Reason: PAIN LEVEL 3-5 Last Admin: 08/31/19 08:02 Dose: 650 mg Albuterol/Ipratropium (Duoneb -) 1 amp NEB Q4H PRN PRN Reason: SHORTNESS OF BREATH Last Admin: 08/30/19 21:30 Dose: 1 amp Atorvastatin Calcium (Lipitor -) 40 mg PO HS [facility] Last Admin: 08/30/19 21:20 Dose: 40 mg Baclofen (Lioresal -) 10 mg PO TID [facility] Last Admin: 08/31/19 14:55 Dose: 10 mg Docusate Sodium (Colace -) 100 mg PO BID [facility] Last Admin: 08/31/19 09:59 Dose: 100 mg Gabapentin (Neurontin -) 600 mg PO [facility] Last Admin: 08/30/19 21:21 Dose: 600 mg Ertapenem 1 gm/ Sodium (Chloride) 50 mls @ 100 mls/hr IVPB DAILY [facility] Losartan Potassium (Cozaar -) 50 mg PO DAILY [facility] Last Admin: 08/31/19 10:00 Dose: 50 mg Nystatin (Mycostatin Ointment -) 1 applic TP BID [facility] Last Admin: 08/31/19 10:04 Dose: 1 applic Oxycodone HCl (Roxicodone -) 10 mg PO Q6H PRN PRN Reason: PAIN LEVEL 7 - 10 Last Admin: 08/31/19 09:58 Dose: 10 mg Oxycodone HCl (Roxicodone -) 5 mg PO Q4H PRN PRN Reason: PAIN LEVEL 4 - 6 Last Admin: 08/31/19 14:58 Dose: 5 mg Polyethylene Glycol (Miralax (For Daily Use) -) 17 gm PO DAILY [facility] Last Admin: 08/31/19 09:59 Dose: 17 gm Prednisone (Deltasone -) 40 mg PO DAILY [facility] Last Admin: 08/31/19 09:59 Dose: 40 mg Primidone (Mysoline -) 50 mg PO HS [facility] Last Admin: 08/30/19 21:21 Dose: 50 mg Senna (Senna -) 1 tab PO BID [facility] Last Admin: 08/31/19 09:59 Dose: 1 tab Sertraline HCl (Zoloft -) 100 mg PO HS [facility] Last Admin: 08/30/19 21:23 Dose: 100 mg Tetrahydrozoline HCl (Visine -) 1 drop OU QID [facility] Last Admin: 08/31/19 14:54 Dose: 1 drop Vital Signs Period Temp Pulse Resp BP Sys/Murray Pulse Ox Last 24 Hr 97 F-98.0 F 61-83 18-18 119-154/56-73 97-97 Constitutional: Yes: No Distress, Calm Eyes: Yes: Conjunctiva Clear, EOM Intact HENT: Yes: Atraumatic, Normocephalic Neck: Yes: Other (+ c collar) Respiratory: Yes: Regular, CTA Bilaterally Gastrointestinal: Yes: Normal Bowel Sounds, Soft Cardiovascular: Yes: Regular Rate and Rhythm JVD: No Heart Sounds: Yes: S1, S2 Musculoskeletal: No: Back Pain Extremities: No: Cold Edema: No Integumentary: No: Jaundice Neurological: Yes: Alert, Oriented Psychiatric: No: Agitated Assessment/Plan EKG: sinus, old inf infarct, nonspecific ST changes - no prior CT chest cardiomegal, sm gennaro pleural effusions, sm RLL consolidation, bronchiectasis of RUL and FELTON with infiltrate tele: sinus echo 08/2019 tds, nl LV/RV, LA mildly dilated, mid TR, tr AR abnormal EKG - no prior EKG - can obtain old EKG from Dr. Gonzalez's office - trop neg x 3, less likely ACS - echo unremarkable, defer further cardiac workup PNA, shortness of breath, bronchiectasis - manage per primary - received IV lasix x 3 doses, appears euvolemic now cervical discectomy and fusion of C4/5 - manage per surgery COPD - manage per primary, pulm HTN - cont current meds HLD - cont statin
[2019-08-31] MEDS: ERTAPENEM SODIUM 1 GM in SODIUM CHLORIDE 50 ML IVPB SCH (17:16)
[2019-08-31] MEDS: ALBUTEROL SO4 2.5/IPRATROPIUM 0.5 INH SOL 3 ML VIAL.NEB. NEB PRN (21:20)
[2019-08-31] MEDS: ATORVASTATIN CA 40 MG TABLET (FP) PO SCH (21:25)
[2019-08-31] MEDS: PRIMIDONE 50 MG TABLET PO SCH (21:26)
[2019-08-31] MEDS: SERTRALINE HCL 50 MG TABLET (FP) PO SCH (21:26)
[2019-08-31] MEDS: GABAPENTIN 300 MG CAPSULE PO SCH (21:26)
[2019-09-01] MEDS: oxyCODONE HCL 5 MG TABLET PO PRN ×4 (05:38→22:49)
[2019-09-01] MEDS: BACLOFEN 10 MG TABLET (FP) PO SCH ×3 (05:38→22:30)
[2019-09-01 07:22] LABS: BASO % 0.3 % (0-2.0); EOS % 1.4 % (0-4.5); HEMATOCRIT 41.8 % (32.4-45.2); HEMOGLOBIN 13.6 GM/dL (10.7-15.3); LYMPH % 32.7 % (8-40); MCH 29.1 pg (25.7-33.7); MCHC 32.6 g/dl (32.0-36.0); MEAN CELL VOLUME 89.4 fl (80-96); MONO % 7.1 % (3.8-10.2); NEUT % 58.5 % (42.8-82.8); PLATELET COUNT 354 K/MM3 (134-434); RBC 4.68 M/mm3 (3.60-5.2); RDW 15.1 % (11.6-15.6)
[2019-09-01 07:52] LABS: ALBUMIN 2.9 g/dl (3.4-5.0); BILIRUBIN,TOTAL 0.3 mg/dL (0.2-1); BLOOD UREA NITROGEN 21.5 mg/dL (7-18); CALCIUM 8.2 mg/dL (8.5-10.1); CREATININE 0.6 mg/dL (0.55-1.3); MAGNESIUM 2.2 mg/dL (1.8-2.4); POTASSIUM 4.7 mmol/L (3.5-5.1); TOT PROT 6.8 g/dl (6.4-8.2)
--- NOTE | 2019-09-01 09:21 | PN ---
Physical Exam: SUBJECTIVE: Patient seen and examined at the bedside. denies chest pain denies shortness of breath. feels better and asking about going home. OBJECTIVE: awake, alert, mentation back to her baseline. on 2 liters of nasal cannula with stable oxygen levels. ------- negative for flu tele: pvcs, nsr 80s/90s ekg: anterior infarct (age undetermined), follows with internship, Dr. Gonzalez for past history of chest pain, no current chest pain, chest ct 08/29/19: significant bronchietasis rul w/surrounding infiltration, localized bronchietasis miguel ángel with ground glass inf. echo 08/31/19: lv normal, ef 55-60%, la mild dilated, mild tr, mild as, trace aortir regurg. ------- Patient is a 69 year old female with a significant past medical history of asthma, fibromyalgia, GERD, diverticulitis, anxiety, HTN, HLD. She is s/p C4- C5 anterior cervical discectomy and fusion, partial corpectomy C5-C6 on 08/24/2019 , hospitalization complicated when patient became hypotensive, hypoxic on 2019 and was transferred from [facility] to [facility] for close monitoring of airway. Chest ct shows pneumonia, and urine cultures +esbl and kleb. Vitals are now stable, mentation back to baseline and bp now in normal ranges. She is being weaned off oxygen as tolerated. Antibiotics changed to meropenem per ID. Vital Signs Period Temp Pulse Resp BP Sys/Murray Pulse Ox Last 24 Hr 97.3 F-98.0 F 58-80 18-20 127-158/52-85 97-98 GENERAL: The patient is awake, alert and oriented x 3, mentation back to baseline. asking about going home. HEAD: Normal with no signs of trauma. cervical collar in place. right eye hemorrhage improving EYES: redness/hrg L eye (inner, small), right eye lat side subconjunctival hemorrhage, limited to conjunctiva, pupils perrla, no drainage, does not appear infected. on qid saline drops ENT: Ears normal, nares patent, oropharynx clear without exudates, moist mucous membranes. NECK: Trachea midline, full range of motion, supple. LUNGS: upper lobes with mild congestion, diminished bases. on 2-3 liters of nasal cannula, stable oxygen HEART: Regular rate and rhythm ABDOMEN: Soft, nontender, nondistended, normoactive bowel sounds, no guarding EXTREMITIES: no edema. NEUROLOGICAL: awake, alert and in no acute distress. no facial droop, head ct negative. PSYCH: cooperative Laboratory Results - last 24 hr 09/01/19 09/01/19 09/01/19 05:35 05:35 06:22 WBC 12.0 H RBC 4.68 Hgb 13.6 Hct 41.8 MCV 89.4 MCH 29.1 MCHC 32.6 RDW 15.1 Plt Count 354 MPV 9.0 Absolute Neuts (auto) 7.0 Neutrophils % 58.5 Lymphocytes % 32.7 Monocytes % 7.1 Eosinophils % 1.4 Basophils % 0.3 Nucleated RBC % 0 Sodium 139 Potassium 4.7 Chloride 104 Carbon Dioxide 29 Anion Gap 6 L BUN 21.5 H Creatinine 0.6 Est GFR (CKD-EPI)AfAm 108.55 Est GFR (CKD-EPI)NonAf 93.66 POC Glucometer 95 Random Glucose 77 Calcium 8.2 L Magnesium 2.2 Total Bilirubin 0.3 AST 18 ALT 18 Alkaline Phosphatase 75 Total Protein 6.8 Albumin 2.9 L Active Medications Generic Name Dose Route Start Last Admin Trade Name Freq PRN Reason Stop Dose Admin Acetaminophen 650 mg 08/29/19 02:41 08/31/19 23:14 Tylenol - PO 650 mg Q4H PRN Administration PAIN LEVEL 3-5 Albuterol/Ipratropium 1 amp 08/29/19 02:41 08/31/19 21:20 Duoneb - NEB 1 amp Q4H PRN Administration SHORTNESS OF BREATH Atorvastatin Calcium 40 mg 08/29/19 22:00 08/31/19 21:25 Lipitor - PO 40 mg HS ERIC Administration Baclofen 10 mg 08/29/19 06:00 09/01/19 05:38 Lioresal - PO 10 mg TID ERIC Administration Docusate Sodium 100 mg 08/29/19 10:00 08/31/19 21:26 Colace - PO 100 mg BID ERIC Administration Gabapentin 600 mg 08/29/19 22:00 08/31/19 21:26 Neurontin - PO 600 mg HS ERIC Administration Ertapenem 1 gm/ Sodium 50 mls @ 100 mls/hr 08/31/19 15:15 08/31/19 17:16 Chloride IVPB 100 mls/hr DAILY ERIC Administration Losartan Potassium 50 mg 08/29/19 10:00 08/31/19 10:00 Cozaar - PO 50 mg DAILY ERIC Administration Nystatin 1 applic 08/29/19 10:00 08/31/19 21:39 Mycostatin Ointment - TP 1 applic BID ERIC Administration Oxycodone HCl 10 mg 08/29/19 02:41 09/01/19 05:38 Roxicodone - PO 10 mg Q6H PRN Administration PAIN LEVEL 7 - 10 Oxycodone HCl 5 mg 08/30/19 10:57 08/31/19 14:58 Roxicodone - PO 5 mg Q4H PRN Administration PAIN LEVEL 4 - 6 Polyethylene Glycol 17 gm 08/29/19 10:00 08/31/19 09:59 Miralax (For Daily Use) - PO 17 gm DAILY ERIC Administration Prednisone 40 mg 08/29/19 10:00 08/31/19 09:59 Deltasone - PO 40 mg DAILY ERIC Administration Primidone 50 mg 08/29/19 22:00 08/31/19 21:26 Mysoline - PO 50 mg HS ERIC Administration Senna 1 tab 08/29/19 10:00 08/31/19 21:26 Senna - PO 1 tab BID ERIC Administration Sertraline HCl 100 mg 08/29/19 22:00 08/31/19 21:26 Zoloft - PO 100 mg HS ERIC Administration Tetrahydrozoline HCl 1 drop 08/29/19 10:00 08/31/19 21:39 Visine - OU 1 drop QID ERIC Administration ASSESSMENT/PLAN: Problem List - Problems (1) Shortness of breath Assessment/Plan: resolving. abg normal, with no co2 retention chest ct w/o contrast 08/19/2019: cardiomegaly, small bilateral pleural effusion, small right lower lobe consolidation, significant bronchiectasis right upper lobe with surrounding infiltration, localized bronchiectasis left upper lobe with ground glass infiltrate. maintain on continuous pulse ox monitoring. Code(s): R06.02 - SHORTNESS OF BREATH (2) Pneumonia Assessment/Plan: chest ct shows significant bronchiectasis right upper lobe with surrounding infiltration, localized bronchiectasis left upper lobe with groundglass infiltrate on meropenem per ID. now on 3 liters of nasal cannula. monitor airway with continuous pulse ox monitoring Code(s): J18.9 - PNEUMONIA, UNSPECIFIED ORGANISM (3) Bronchiectasis Assessment/Plan: chest ct shows significant bronchiectasis of right upper lobe with surrounding infiltration, localized bronchiectasis left upper lobe with groundglass infiltrates. on meropenem Code(s): J47.9 - BRONCHIECTASIS, UNCOMPLICATED (4) Klebsiella infection Assessment/Plan: on meropenem Code(s): A49.8 - OTHER BACTERIAL INFECTIONS OF UNSPECIFIED SITE (5) ESBL (extended spectrum beta-lactamase) producing bacteria infection Assessment/Plan: on meropenem Code(s): A49.9 - BACTERIAL INFECTION, UNSPECIFIED; Z16.12 - EXTENDED SPECTRUM BETA LACTAMASE (ESBL) RESISTANCE (6) Acute metabolic encephalopathy Assessment/Plan: resolved Code(s): G93.41 - METABOLIC ENCEPHALOPATHY (7) S/P cervical discectomy Assessment/Plan: s/p ant cervical discectomy, c4-5 previously on tramadol, oxycodone and oxycontin but narcotics cut back for lethargy, now on oxycodone 5 or 10 depending on pain scale, stopped oxycontin. hard collar in place. +encouraged use of incentive spirometer Code(s): Z98.890 - OTHER SPECIFIED POSTPROCEDURAL STATES (8) COPD (chronic obstructive pulmonary disease) Assessment/Plan: on duonebs as needed, no wheezing but developed acute shortness of breath. Code(s): J44.9 - CHRONIC OBSTRUCTIVE PULMONARY DISEASE, UNSPECIFIED (9) Hypertension Assessment/Plan: on cozaar with parameters to hold if systolic <100, bp stable. Code(s): I10 - ESSENTIAL (PRIMARY) HYPERTENSION (10) Eye hemorrhage Assessment/Plan: unknown cause, no vision problems, no eye pain. improving since yesterday. continue saline drops qid Code(s): H57.89 - OTHER SPECIFIED DISORDERS OF EYE AND ADNEXA (11) [place] (acute kidney injury) Assessment/Plan: resolved closely monitor since patient received lasix 60mg in last 24 hrs. monitor electrolytes. Code(s): N17.9 - ACUTE KIDNEY FAILURE, UNSPECIFIED (12) DVT prophylaxis Assessment/Plan: scds/ambulation no chemical a/c 2/2 to recent surgery Code(s): Z29.9 - ENCOUNTER FOR PROPHYLACTIC MEASURES, UNSPECIFIED (13) Prophylactic measure Code(s): Z29.9 - ENCOUNTER FOR PROPHYLACTIC MEASURES, UNSPECIFIED Visit type - Emergency Visit Emergency Visit: Yes ED Registration Date: 08/24/19 Care time: The patient presented to the Emergency Department on the above date and was hospitalized for further evaluation of their emergent condition. - New Patient This patient is new to me today: No - Critical Care Critical Care patient: No - Discharge Referral Referred to [facility] No
[2019-09-01] MEDS ORDERED: PT OWN MED DRAWER 7, Y5N ONE ×3 (10:41→21:24)
[2019-09-01] MEDS: DOCUSATE SODIUM 100 MG CAPSULE (FP) PO SCH ×2 (10:43→22:28)
[2019-09-01] MEDS: SENNOSIDES 8.6MG TABLET (FP) PO SCH ×2 (10:44→22:29)
[2019-09-01] MEDS: ERTAPENEM SODIUM 1 GM in SODIUM CHLORIDE 50 ML IVPB SCH (10:44)
[2019-09-01] MEDS: predniSONE 20 MG TABLET (UD) PO SCH (10:44)
[2019-09-01] MEDS: LOSARTAN POTASSIUM 50 MG TABLET (FP) PO SCH (10:44)
[2019-09-01] MEDS: POLYETHYLENE GLYCOL 3350 119 GM BTL PO SCH (10:45)
[2019-09-01] MEDS: NYSTATIN 100000 UNIT/GM TOPICAL OINTMENT 15 GM TUBE TP SCH ×2 (10:45→22:37)
[2019-09-01] MEDS: TETRAHYDROZOLINE HCL EYE DROPS OU SCH ×4 (10:46→22:36)
--- NOTE | 2019-09-01 12:28 | PN ---
Progress Note (short form) - Note Progress Note: s:no chest pain, palps, dizziness, dyspnea Current Medications Acetaminophen (Tylenol -) 650 mg PO Q4H PRN PRN Reason: PAIN LEVEL 3-5 Last Admin: 08/31/19 23:14 Dose: 650 mg Albuterol/Ipratropium (Duoneb -) 1 amp NEB Q4H PRN PRN Reason: SHORTNESS OF BREATH Last Admin: 08/31/19 21:20 Dose: 1 amp Atorvastatin Calcium (Lipitor -) 40 mg PO [facility] Last Admin: 08/31/19 21:25 Dose: 40 mg Baclofen (Lioresal -) 10 mg PO TID [facility] Last Admin: 09/01/19 05:38 Dose: 10 mg Docusate Sodium (Colace -) 100 mg PO BID [facility] Last Admin: 09/01/19 10:43 Dose: 100 mg Gabapentin (Neurontin -) 600 mg PO [facility] Last Admin: 08/31/19 21:26 Dose: 600 mg Ertapenem 1 gm/ Sodium (Chloride) 50 mls @ 100 mls/hr IVPB DAILY [facility] Last Admin: 09/01/19 10:44 Dose: 100 mls/hr Losartan Potassium (Cozaar -) 50 mg PO DAILY [facility] Last Admin: 09/01/19 10:44 Dose: 50 mg Nystatin (Mycostatin Ointment -) 1 applic TP BID [facility] Last Admin: 09/01/19 10:45 Dose: 1 applic Oxycodone HCl (Roxicodone -) 10 mg PO Q6H PRN PRN Reason: PAIN LEVEL 7 - 10 Last Admin: 09/01/19 05:38 Dose: 10 mg Oxycodone HCl (Roxicodone -) 5 mg PO Q4H PRN PRN Reason: PAIN LEVEL 4 - 6 Last Admin: 09/01/19 11:14 Dose: 5 mg Polyethylene Glycol (Miralax (For Daily Use) -) 17 gm PO DAILY [facility] Last Admin: 09/01/19 10:45 Dose: 17 gm Prednisone (Deltasone -) 40 mg PO DAILY [facility] Last Admin: 09/01/19 10:44 Dose: 40 mg Primidone (Mysoline -) 50 mg PO HS [facility] Last Admin: 08/31/19 21:26 Dose: 50 mg Senna (Senna -) 1 tab PO BID [facility] Last Admin: 09/01/19 10:44 Dose: 1 tab Sertraline HCl (Zoloft -) 100 mg PO HS [facility] Last Admin: 08/31/19 21:26 Dose: 100 mg Tetrahydrozoline HCl (Visine -) 1 drop OU QID [facility] Last Admin: 09/01/19 10:46 Dose: 1 drop Vital Signs Period Temp Pulse Resp BP Sys/Murray Pulse Ox Last 24 Hr 97.3 F-98.0 F 58-80 18-20 127-158/52-85 97-98 Constitutional: Yes: No Distress, Calm Eyes: Yes: Conjunctiva Clear, EOM Intact HENT: Yes: Atraumatic, Normocephalic Neck: Yes: Other (+ c collar) Respiratory: Yes: Regular, CTA Bilaterally Gastrointestinal: Yes: Normal Bowel Sounds, Soft Cardiovascular: Yes: Regular Rate and Rhythm JVD: No Heart Sounds: Yes: S1, S2 Musculoskeletal: No: Back Pain Extremities: No: Cold Edema: No Integumentary: No: Jaundice Neurological: Yes: Alert, Oriented Psychiatric: No: Agitated Assessment/Plan EKG: sinus, old inf infarct, nonspecific ST changes - no prior CT chest cardiomegal, sm gennaro pleural effusions, sm RLL consolidation, bronchiectasis of RUL and FELTON with infiltrate tele: sinus echo 08/2019 tds, nl LV/RV, LA mildly dilated, mid TR, tr AR abnormal EKG - no prior EKG - can obtain old EKG from Dr. Gonzalez's office - trop neg x 3, less likely ACS - echo unremarkable, defer further cardiac workup PNA, shortness of breath, bronchiectasis - manage per primary - received IV lasix x 3 doses - appears euvolemic, defer diuresis cervical discectomy and fusion of C4/5 - manage per surgery COPD - manage per primary, pulm HTN - cont current meds HLD - cont statin
--- NOTE | 2019-09-01 19:19 | PN ---
Progress Note, Physician History of Present Illness: stable improving - Current Medication List Current Medications: Active Medications Acetaminophen (Tylenol -) 650 mg PO Q4H PRN PRN Reason: PAIN LEVEL 3-5 Last Admin: 08/31/19 23:14 Dose: 650 mg Albuterol/Ipratropium (Duoneb -) 1 amp NEB Q4H PRN PRN Reason: SHORTNESS OF BREATH Last Admin: 08/31/19 21:20 Dose: 1 amp Atorvastatin Calcium (Lipitor -) 40 mg PO [facility] Last Admin: 08/31/19 21:25 Dose: 40 mg Baclofen (Lioresal -) 10 mg PO TID [facility] Last Admin: 09/01/19 15:17 Dose: 10 mg Docusate Sodium (Colace -) 100 mg PO BID [facility] Last Admin: 09/01/19 10:43 Dose: 100 mg Gabapentin (Neurontin -) 600 mg PO [facility] Last Admin: 08/31/19 21:26 Dose: 600 mg Ertapenem 1 gm/ Sodium (Chloride) 50 mls @ 100 mls/hr IVPB DAILY [facility] Last Admin: 09/01/19 10:44 Dose: 100 mls/hr Losartan Potassium (Cozaar -) 50 mg PO DAILY [facility] Last Admin: 09/01/19 10:44 Dose: 50 mg Nystatin (Mycostatin Ointment -) 1 applic TP BID [facility] Last Admin: 09/01/19 10:45 Dose: 1 applic Oxycodone HCl (Roxicodone -) 10 mg PO Q6H PRN PRN Reason: PAIN LEVEL 7 - 10 Last Admin: 09/01/19 05:38 Dose: 10 mg Oxycodone HCl (Roxicodone -) 5 mg PO Q4H PRN PRN Reason: PAIN LEVEL 4 - 6 Last Admin: 09/01/19 17:57 Dose: 5 mg Polyethylene Glycol (Miralax (For Daily Use) -) 17 gm PO DAILY [facility] Last Admin: 09/01/19 10:45 Dose: 17 gm Prednisone (Deltasone -) 40 mg PO DAILY [facility] Last Admin: 09/01/19 10:44 Dose: 40 mg Primidone (Mysoline -) 50 mg PO HS [facility] Last Admin: 08/31/19 21:26 Dose: 50 mg Senna (Senna -) 1 tab PO BID [facility] Last Admin: 09/01/19 10:44 Dose: 1 tab Sertraline HCl (Zoloft -) 100 mg PO HS [facility] Last Admin: 08/31/19 21:26 Dose: 100 mg Tetrahydrozoline HCl (Visine -) 1 drop OU QID [facility] Last Admin: 09/01/19 17:58 Dose: 1 drop - Objective Vital Signs: Vital Signs Temperature 97.6 F 09/01/19 14:15 Pulse Rate 61 09/01/19 14:15 Respiratory Rate 18 09/01/19 14:15 Blood Pressure 136/75 09/01/19 14:15 O2 Sat by Pulse Oximetry (%) 98 09/01/19 08:58 Constitutional: Yes: No Distress, Calm Cardiovascular: Yes: S1, S2 Respiratory: Yes: Regular, CTA Bilaterally Musculoskeletal: Yes: WNL Extremities: Yes: WNL Labs: CBC, BMP 09/01/19 05:35 09/01/19 05:35 Assessment/Plan Problem List - Problems (1) S/P cervical discectomy Code(s): Z98.890 - OTHER SPECIFIED POSTPROCEDURAL STATES (2) COPD (chronic obstructive pulmonary disease) Code(s): J44.9 - CHRONIC OBSTRUCTIVE PULMONARY DISEASE, UNSPECIFIED (3) Hypertension Code(s): I10 - ESSENTIAL (PRIMARY) HYPERTENSION (4) Eye hemorrhage Code(s): H57.89 - OTHER SPECIFIED DISORDERS OF EYE AND ADNEXA (5) hypotension 6 hypoxia 7 infiltrate in the lung plan continue current mgmt resp support abx rest as per the team
[2019-09-01 20:30] VITALS: BMI 30.7
[2019-09-01] MEDS: SERTRALINE HCL 50 MG TABLET (FP) PO SCH (22:29)
[2019-09-01] MEDS: GABAPENTIN 300 MG CAPSULE PO SCH (22:30)
[2019-09-01] MEDS: ATORVASTATIN CA 40 MG TABLET (FP) PO SCH (22:30)
[2019-09-01] MEDS: PRIMIDONE 50 MG TABLET PO SCH (22:35)
[2019-09-02] MEDS: oxyCODONE HCL 5 MG TABLET PO PRN ×3 (06:26→18:45)
[2019-09-02] MEDS: BACLOFEN 10 MG TABLET (FP) PO SCH ×3 (06:27→21:21)
[2019-09-02 06:48] LABS: BASO % 0.5 % (0-2.0); EOS % 1.3 % (0-4.5); HEMATOCRIT 42.5 % (32.4-45.2); HEMOGLOBIN 13.9 GM/dL (10.7-15.3); LYMPH % 31.7 % (8-40); MCH 29.2 pg (25.7-33.7); MCHC 32.7 g/dl (32.0-36.0); MEAN CELL VOLUME 89.4 fl (80-96); MONO % 8.4 % (3.8-10.2); NEUT % 58.1 % (42.8-82.8); PLATELET COUNT 374 K/MM3 (134-434); RBC 4.76 M/mm3 (3.60-5.2); RDW 14.9 % (11.6-15.6); WHITE BLOOD COUNT 11.6 K/mm3 (4.0-10.0)
[2019-09-02 07:12] LABS: BILIRUBIN,TOTAL 0.4 mg/dL (0.2-1); BLOOD UREA NITROGEN 16.9 mg/dL (7-18); CALCIUM 8.5 mg/dL (8.5-10.1); CREATININE 0.5 mg/dL (0.55-1.3); POTASSIUM 4.6 mmol/L (3.5-5.1); TOT PROT 6.7 g/dl (6.4-8.2)
[2019-09-02] MEDS ORDERED: PT OWN MED DRAWER 7, Y5N ONE ×2 (07:22→09:33)
--- NOTE | 2019-09-02 10:04 | PN ---
Physical Exam: SUBJECTIVE: Patient seen and examined. Sitting up in bed, feels well, off oxygen and denies shortness of breath. POC discussed with her. OBJECTIVE: taper off steriods, 20mg today, 10mg tomorrow, then d/c negative for flu tele: pvcs, nsr 80s/90s ekg: anterior infarct (age undetermined), follows with naturopath, Dr. Gonzalez for past history of chest pain, no current chest pain, chest ct 08/29/19: significant bronchietasis rul w/surrounding infiltration, localized bronchietasis miguel ángel with ground glass inf. echo 08/31/19: lv normal, ef 55-60%, la mild dilated, mild tr, mild as, trace aortir regurg. ------- Patient is a 69 year old female with a significant past medical history of asthma, fibromyalgia, GERD, diverticulitis, anxiety, HTN, HLD. She is s/p C4- C5 anterior cervical discectomy and fusion, partial corpectomy C5-C6 on 08/24/2019 , hospitalization complicated when patient became hypotensive, hypoxic on 2019 and was transferred from [facility] to [facility] for close monitoring of airway. Chest ct shows pneumonia, and urine cultures +esbl and kleb. Vitals are now stable, mentation back to baseline bp now in normal ranges. She is being weaned off oxygen as tolerated. Now on day #3 of ertapenem for esbl/kleb uti. Vital Signs Period Temp Pulse Resp BP Sys/Murray Pulse Ox Last 24 Hr 97.6 F-98.1 F 61-67 17-20 122-147/62-75 98 GENERAL: The patient is awake, alert and oriented x 3, mentation back to baseline. asking about going home. HEAD: Normal with no signs of trauma. cervical collar in place. right eye hemorrhage improving EYES: redness/hrg L eye (inner, small), right eye lat side subconjunctival hemorrhage, limited to conjunctiva, pupils perrla, no drainage, does not appear infected. on qid saline drops ENT: Ears normal, nares patent, oropharynx clear without exudates, moist mucous membranes. NECK: Trachea midline, full range of motion, supple. LUNGS: upper and lower lobes clear/diminished to auscultation. on room air. being weaned off oxygen. HEART: Regular rate and rhythm ABDOMEN: Soft, nontender, nondistended, normoactive bowel sounds, no guarding EXTREMITIES: no edema. NEUROLOGICAL: awake, alert and in no acute distress. no facial droop, head ct negative. PSYCH: cooperative Laboratory Results - last 24 hr 09/01/19 09/02/19 09/02/19 18:45 05:48 05:48 WBC 11.6 H RBC 4.76 Hgb 13.9 Hct 42.5 MCV 89.4 MCH 29.2 MCHC 32.7 RDW 14.9 Plt Count 374 MPV 9.0 Absolute Neuts (auto) 6.7 Neutrophils % 58.1 Lymphocytes % 31.7 Monocytes % 8.4 Eosinophils % 1.3 Basophils % 0.5 Nucleated RBC % 0 Sodium 137 Potassium 4.6 Chloride 104 Carbon Dioxide 28 Anion Gap 5 L BUN 16.9 Creatinine 0.5 L Est GFR (CKD-EPI)AfAm 115.26 Est GFR (CKD-EPI)NonAf 99.45 POC Glucometer 190 Random Glucose 87 Calcium 8.5 Magnesium 2.0 Total Bilirubin 0.4 AST 16 ALT 19 Alkaline Phosphatase 73 Total Protein 6.7 Albumin 3.0 L 09/02/19 06:48 WBC RBC Hgb Hct MCV MCH MCHC RDW Plt Count MPV Absolute Neuts (auto) Neutrophils % Lymphocytes % Monocytes % Eosinophils % Basophils % Nucleated RBC % Sodium Potassium Chloride Carbon Dioxide Anion Gap BUN Creatinine Est GFR (CKD-EPI)AfAm Est GFR (CKD-EPI)NonAf POC Glucometer 90 Random Glucose Calcium Magnesium Total Bilirubin AST ALT Alkaline Phosphatase Total Protein Albumin Active Medications Generic Name Dose Route Start Last Admin Trade Name Freq PRN Reason Stop Dose Admin Acetaminophen 650 mg 08/29/19 02:41 08/31/19 23:14 Tylenol - PO 650 mg Q4H PRN Administration PAIN LEVEL 3-5 Albuterol/Ipratropium 1 amp 08/29/19 02:41 08/31/19 21:20 Duoneb - NEB 1 amp Q4H PRN Administration SHORTNESS OF BREATH Atorvastatin Calcium 40 mg 08/29/19 22:00 09/01/19 22:30 Lipitor - PO 40 mg HS ERIC Administration Baclofen 10 mg 08/29/19 06:00 09/02/19 06:27 Lioresal - PO 10 mg TID ERIC Administration Docusate Sodium 100 mg 08/29/19 10:00 09/01/19 22:28 Colace - PO 100 mg BID ERIC Administration Gabapentin 600 mg 08/29/19 22:00 09/01/19 22:30 Neurontin - PO 600 mg HS ERIC Administration Ertapenem 1 gm/ Sodium 50 mls @ 100 mls/hr 08/31/19 15:15 09/01/19 10:44 Chloride IVPB 100 mls/hr DAILY ERIC Administration Losartan Potassium 50 mg 08/29/19 10:00 09/01/19 10:44 Cozaar - PO 50 mg DAILY ERIC Administration Nystatin 1 applic 08/29/19 10:00 09/01/19 22:37 Mycostatin Ointment - TP 1 applic BID ERIC Administration Oxycodone HCl 10 mg 08/29/19 02:41 09/02/19 06:26 Roxicodone - PO 10 mg Q6H PRN Administration PAIN LEVEL 7 - 10 Oxycodone HCl 5 mg 08/30/19 10:57 09/01/19 17:57 Roxicodone - PO 5 mg Q4H PRN Administration PAIN LEVEL 4 - 6 Polyethylene Glycol 17 gm 08/29/19 10:00 09/01/19 10:45 Miralax (For Daily Use) - PO 17 gm DAILY ERIC Administration Prednisone 40 mg 08/29/19 10:00 09/01/19 10:44 Deltasone - PO 40 mg DAILY ERIC Administration Primidone 50 mg 08/29/19 22:00 09/01/19 22:35 Mysoline - PO 50 mg HS ERIC Administration Senna 1 tab 08/29/19 10:00 09/01/19 22:29 Senna - PO 1 tab BID ERIC Administration Sertraline HCl 100 mg 08/29/19 22:00 09/01/19 22:29 Zoloft - PO 100 mg HS ERIC Administration Tetrahydrozoline HCl 1 drop 08/29/19 10:00 09/01/19 22:36 Visine - OU 1 drop QID ERIC Administration ASSESSMENT/PLAN: Problem List - Problems (1) Shortness of breath Assessment/Plan: resolving. abg normal, with no co2 retention chest ct w/o contrast 08/19/2019: cardiomegaly, small bilateral pleural effusion, small right lower lobe consolidation, significant bronchiectasis right upper lobe with surrounding infiltration, localized bronchiectasis left upper lobe with ground glass infiltrate. maintain on continuous pulse ox monitoring, as she is being weaned off oxygen airway patent Code(s): R06.02 - SHORTNESS OF BREATH (2) Pneumonia Assessment/Plan: chest ct shows significant bronchiectasis right upper lobe with surrounding infiltration, localized bronchiectasis left upper lobe with groundglass infiltrate on meropenem per ID. now on 3 liters of nasal cannula. monitor airway with continuous pulse ox monitoring Code(s): J18.9 - PNEUMONIA, UNSPECIFIED ORGANISM (3) Bronchiectasis Assessment/Plan: chest ct shows significant bronchiectasis of right upper lobe with surrounding infiltration, localized bronchiectasis left upper lobe with groundglass infiltrates. on ertapenem Code(s): J47.9 - BRONCHIECTASIS, UNCOMPLICATED (4) Klebsiella infection Assessment/Plan: on ertapenem Code(s): A49.8 - OTHER BACTERIAL INFECTIONS OF UNSPECIFIED SITE (5) ESBL (extended spectrum beta-lactamase) producing bacteria infection Assessment/Plan: per UC, on ertapenem Code(s): A49.9 - BACTERIAL INFECTION, UNSPECIFIED; Z16.12 - EXTENDED SPECTRUM BETA LACTAMASE (ESBL) RESISTANCE (6) Acute metabolic encephalopathy Assessment/Plan: resolved Code(s): G93.41 - METABOLIC ENCEPHALOPATHY (7) S/P cervical discectomy Assessment/Plan: s/p ant cervical discectomy, c4-5 previously on tramadol, oxycodone and oxycontin but narcotics cut back for lethargy, now on oxycodone 5 or 10 depending on pain scale, stopped oxycontin. hard collar in place. +encouraged use of incentive spirometer ambulation, pt/ot therapy Code(s): Z98.890 - OTHER SPECIFIED POSTPROCEDURAL STATES (8) COPD (chronic obstructive pulmonary disease) Assessment/Plan: on duonebs as needed, not in exacerbation Code(s): J44.9 - CHRONIC OBSTRUCTIVE PULMONARY DISEASE, UNSPECIFIED (9) Hypertension Assessment/Plan: on cozaar with parameters to hold if systolic <100, bp stable. Code(s): I10 - ESSENTIAL (PRIMARY) HYPERTENSION (10) Eye hemorrhage Assessment/Plan: resolving. unknown cause, no vision problems, no eye pain. no recent eye surgery. continue saline drops qid Code(s): H57.89 - OTHER SPECIFIED DISORDERS OF EYE AND ADNEXA (11) [place] (acute kidney injury) Assessment/Plan: resolved Code(s): N17.9 - ACUTE KIDNEY FAILURE, UNSPECIFIED (12) DVT prophylaxis Assessment/Plan: scds/ambulation no chemical a/c 2/2 to recent surgery Code(s): Z29.9 - ENCOUNTER FOR PROPHYLACTIC MEASURES, UNSPECIFIED (13) Prophylactic measure Assessment/Plan: fen tolerating po monitor electrolytes dysphagia pureed/honey thick full code Code(s): Z29.9 - ENCOUNTER FOR PROPHYLACTIC MEASURES, UNSPECIFIED Visit type - Emergency Visit Emergency Visit: Yes ED Registration Date: 08/24/19 Care time: The patient presented to the Emergency Department on the above date and was hospitalized for further evaluation of their emergent condition. - New Patient This patient is new to me today: No - Critical Care Critical Care patient: No - Discharge Referral Referred to [facility] No
[2019-09-02] MEDS ORDERED: predniSONE 20 MG TABLET (UD) PO ONE (10:15)
[2019-09-02] MEDS: DOCUSATE SODIUM 100 MG CAPSULE (FP) PO SCH ×2 (10:35→21:21)
[2019-09-02] MEDS: SENNOSIDES 8.6MG TABLET (FP) PO SCH ×2 (10:35→21:22)
[2019-09-02] MEDS: LOSARTAN POTASSIUM 50 MG TABLET (FP) PO SCH (10:36)
[2019-09-02] MEDS: POLYETHYLENE GLYCOL 3350 119 GM BTL PO SCH (10:36)
[2019-09-02] MEDS: ERTAPENEM SODIUM 1 GM in SODIUM CHLORIDE 50 ML IVPB SCH (10:36)
[2019-09-02] MEDS: TETRAHYDROZOLINE HCL EYE DROPS OU SCH ×4 (10:37→21:23)
[2019-09-02] MEDS: NYSTATIN 100000 UNIT/GM TOPICAL OINTMENT 15 GM TUBE TP SCH ×2 (10:40→22:39)
--- NOTE | 2019-09-02 11:08 | CONSULT ---
Admitting History and Physical - Primary Care Physician PCP: Ramon Tanner - Admission History of Present Illness: 69 y/o F hx of COPD, Asthma, fibromyalgia, GERD diveritulitis, anxiety, HTN, HLD s/p C4-C5 anterior cervical discectomy and fusion, partial corpectomy C5-C6 POD 0. This is her second surgery on her cervical spine after previous surgery 4 years ago for herniated disc s/p injury about 10 years ago. She continued to experience neck pain as well as weakness in her left arm. Prior to this surgery , pt had been managed chronically on pain medication (percocet). 08/24-post surgery patient was stable but became hypotensive and hypoxic. CT chest performed 08/29 showed scattered infiltrates and bronchiechtasis Selected Entries 08/29/19 08/29/19 08/30/19 13:00 18:00 18:00 Breakfast 0 Diet Tolerated Poor Lunch Supper 25% 25% Temperature 08/31/19 08/31/19 09/01/19 09:23 18:00 02:00 Breakfast 50% Diet Tolerated Fair Poor Lunch Supper 25% Temperature 97.8 F 09/01/19 09/01/19 09/01/19 08:44 09:02 12:46 Breakfast 75% Diet Tolerated Lunch 0 Supper Temperature 97.3 F L 09/01/19 09/01/19 09/01/19 13:00 14:15 18:00 Breakfast 75% Diet Tolerated Lunch Supper 0 Temperature 97.6 F 97.9 F 09/01/19 09/02/19 09/02/19 18:30 02:00 06:00 Breakfast 75% Diet Tolerated Lunch 50% Supper 75% Temperature 98.1 F 97.8 F 09/02/19 08:45 Breakfast Diet Tolerated Lunch Supper Temperature 98.2 F Laboratory Tests 08/29/19 08/30/19 08/31/19 06:05 06:12 06:20 WBC 12.6 H 12.3 H 11.9 H 09/01/19 09/02/19 05:35 05:48 WBC 12.0 H 11.6 H 08/24 Soft diet/thin liquid 08/29 Puree/honey thick liquids Pt drinking thin water via straw with responsive cough. She denies difficulty swallowing or congestion. She reports initially swallow was painful but that has improved. Prednisone 08/29-14 40 mg, 09/02 20 mg.Prednizone 09/03. History Source: Patient Limitations to Obtaining History: No Limitations - Advance Directives Advance Directives: Yes: Health Care Proxy - Smoking History Smoking history: Current every day smoker Have you smoked in the past 12 months: No - Alcohol/Substance Use Hx Alcohol Use: No History - Admission Reason For Visit: SPINAL ENTHESOPATHY, CERVICAL REGION - Diagnostics X-ray: Report Reviewed CT Scan: Report Reviewed - General Mental Status: Alert and Oriented, Awake and Alert, Able to Follow Commands Attention: Intact Ability to Follow Directions: Good Head/Neck Control: Fair (hard cervical collar in place) - Hearing Hearing: Normal Speech Evaluation - Communication Primary Language: KYRGYZ Communication: Yes: Within Normal Limits Oral Expression Ability: Yes: No Impairment - Speech Production Able to Make Needs Known: Yes: WNL Intelligibility: Yes: WNL - Speech Characteristics Voice Loudness: Normal Voice Pitch: Yes: Normal Voice Phonatory-based Quality: Yes: Normal Speech Pattern: Normal Speech Clarity: < 100% Nasal Resonance: Hypernasal (slight?) Articulation: Yes: Precise Rate of Speech: Intact - Language/Auditory Comprehension Follows: Yes: 1 Stage Simple Commands - Language/Verbal Expression Able to Respond to Simple Queries: Yes: WNL Able to Communicate Wants and Needs: Yes: WNL Functional Communication Status: Yes: WNL - Swallow Evaluation/Bedside Assessment Current Nutritional Intake: Dysphagia Pureed, Honey Textured Liquids, Other ( drinking thin water via straw with responsive cough noted. Suspect aspiration) Oral Secretions: Yes: WFL Dentition: Yes: Missing Teeth (few teeth anterioally on bottom. Dentures are home) Facial Symmetry at Rest: Symmetrical Facial Symmetry on Retraction: Symmetrical Facial Movement: Controlled Sensation: Normal Against Resistance Opening: Normal Against Resistance Closing: Normal Pucker Lips: Normal Smile: Normal Lingual Movement: Normal, Symmetric Lingual Speed of Movement: Normal Lingual Movement Strgth Against Opposition: Normal Lingual Movement Characteristics: Normal Velopharyngeal Movement: Hypernasality (slight? baseline?) Laryngeal Movement: Reduced Excursion, Labored,delay initiation Rate of Intake: WFL Labial Seal: WFL Oral Prep Time: WFL A-P Transit: WFL Timing of Swallow: Delayed Coughing/Throat Clear: Yes (thin liquid) Recommendations - Speech Evaluation, Impression/Plan Impression: Swallowing improving, likely benefit of Decadron and time to heal. Presently on puree/honey TL, but drinking thin water via straw with responsive cough noted. Suspect aspiration - Dysphagia Impressions/Plan Swallowing Skills: Impaired Dysphagia Impressions: Ongoing Evaluation, Suspect Aspiration (thin) *Silent aspiration: cannot be R/O at bedside Recommendations: Modified Barium Swallow (to r/o aspiration/stasis and determine most liberal diet pt can tolerate)
--- NOTE | 2019-09-02 11:30 | PN ---
Progress Note, Physician - Current Medication List Current Medications: Active Medications Acetaminophen (Tylenol -) 650 mg PO Q4H PRN PRN Reason: PAIN LEVEL 3-5 Last Admin: 08/31/19 23:14 Dose: 650 mg Albuterol/Ipratropium (Duoneb -) 1 amp NEB Q4H PRN PRN Reason: SHORTNESS OF BREATH Last Admin: 08/31/19 21:20 Dose: 1 amp Atorvastatin Calcium (Lipitor -) 40 mg PO [facility] Last Admin: 09/01/19 22:30 Dose: 40 mg Baclofen (Lioresal -) 10 mg PO TID [facility] Last Admin: 09/02/19 06:27 Dose: 10 mg Docusate Sodium (Colace -) 100 mg PO BID [facility] Last Admin: 09/02/19 10:35 Dose: 100 mg Gabapentin (Neurontin -) 600 mg PO [facility] Last Admin: 09/01/19 22:30 Dose: 600 mg Ertapenem 1 gm/ Sodium (Chloride) 50 mls @ 100 mls/hr IVPB DAILY [facility] Last Admin: 09/02/19 10:36 Dose: 100 mls/hr Losartan Potassium (Cozaar -) 50 mg PO DAILY [facility] Last Admin: 09/02/19 10:36 Dose: 50 mg Nystatin (Mycostatin Ointment -) 1 applic TP BID [facility] Last Admin: 09/02/19 10:40 Dose: 1 applic Oxycodone HCl (Roxicodone -) 10 mg PO Q6H PRN PRN Reason: PAIN LEVEL 7 - 10 Last Admin: 09/02/19 06:26 Dose: 10 mg Oxycodone HCl (Roxicodone -) 5 mg PO Q4H PRN PRN Reason: PAIN LEVEL 4 - 6 Last Admin: 09/01/19 17:57 Dose: 5 mg Polyethylene Glycol (Miralax (For Daily Use) -) 17 gm PO DAILY [facility] Last Admin: 09/02/19 10:36 Dose: 17 gm Prednisone (Deltasone -) 10 mg PO ONCE ONE Stop: 09/03/19 10:01 Primidone (Mysoline -) 50 mg PO [facility] Last Admin: 09/01/19 22:35 Dose: 50 mg Senna (Senna -) 1 tab PO BID [facility] Last Admin: 09/02/19 10:35 Dose: 1 tab Sertraline HCl (Zoloft -) 100 mg PO HS [facility] Last Admin: 09/01/19 22:29 Dose: 100 mg Tetrahydrozoline HCl (Visine -) 1 drop OU QID [facility] Last Admin: 09/02/19 10:37 Dose: 1 drop - Objective Vital Signs: Vital Signs Temperature 98.2 F 09/02/19 08:45 Pulse Rate 86 09/02/19 08:45 Respiratory Rate 18 09/02/19 08:45 Blood Pressure 127/89 09/02/19 08:45 O2 Sat by Pulse Oximetry (%) 98 09/01/19 21:00 Labs: CBC, BMP 09/02/19 05:48 09/02/19 05:48
--- NOTE | 2019-09-02 12:09 | PN ---
Progress Note (short form) - Note Progress Note: s:no chest pain, palps, dizziness, dyspnea Current Medications Acetaminophen (Tylenol -) 650 mg PO Q4H PRN PRN Reason: PAIN LEVEL 3-5 Last Admin: 08/31/19 23:14 Dose: 650 mg Albuterol/Ipratropium (Duoneb -) 1 amp NEB Q4H PRN PRN Reason: SHORTNESS OF BREATH Last Admin: 08/31/19 21:20 Dose: 1 amp Atorvastatin Calcium (Lipitor -) 40 mg PO [facility] Last Admin: 09/01/19 22:30 Dose: 40 mg Baclofen (Lioresal -) 10 mg PO TID [facility] Last Admin: 09/02/19 06:27 Dose: 10 mg Docusate Sodium (Colace -) 100 mg PO BID [facility] Last Admin: 09/02/19 10:35 Dose: 100 mg Gabapentin (Neurontin -) 600 mg PO [facility] Last Admin: 09/01/19 22:30 Dose: 600 mg Ertapenem 1 gm/ Sodium (Chloride) 50 mls @ 100 mls/hr IVPB DAILY [facility] Last Admin: 09/02/19 10:36 Dose: 100 mls/hr Losartan Potassium (Cozaar -) 50 mg PO DAILY [facility] Last Admin: 09/02/19 10:36 Dose: 50 mg Nystatin (Mycostatin Ointment -) 1 applic TP BID [facility] Last Admin: 09/02/19 10:40 Dose: 1 applic Oxycodone HCl (Roxicodone -) 10 mg PO Q6H PRN PRN Reason: PAIN LEVEL 7 - 10 Last Admin: 09/02/19 06:26 Dose: 10 mg Oxycodone HCl (Roxicodone -) 5 mg PO Q4H PRN PRN Reason: PAIN LEVEL 4 - 6 Last Admin: 09/01/19 17:57 Dose: 5 mg Polyethylene Glycol (Miralax (For Daily Use) -) 17 gm PO DAILY [facility] Last Admin: 09/02/19 10:36 Dose: 17 gm Prednisone (Deltasone -) 10 mg PO ONCE ONE Stop: 09/03/19 10:01 Primidone (Mysoline -) 50 mg PO [facility] Last Admin: 09/01/19 22:35 Dose: 50 mg Senna (Senna -) 1 tab PO BID [facility] Last Admin: 09/02/19 10:35 Dose: 1 tab Sertraline HCl (Zoloft -) 100 mg PO HS [facility] Last Admin: 09/01/19 22:29 Dose: 100 mg Tetrahydrozoline HCl (Visine -) 1 drop OU QID [facility] Last Admin: 09/02/19 10:37 Dose: 1 drop Vital Signs Period Temp Pulse Resp BP Sys/Murray Pulse Ox Last 24 Hr 97.6 F-98.2 F 61-86 17-20 122-147/62-89 98-99 Constitutional: Yes: No Distress, Calm Eyes: Yes: Conjunctiva Clear, EOM Intact HENT: Yes: Atraumatic, Normocephalic Neck: Yes: Other (+ c collar) Respiratory: Yes: Regular, CTA Bilaterally Gastrointestinal: Yes: Normal Bowel Sounds, Soft Cardiovascular: Yes: Regular Rate and Rhythm JVD: No Heart Sounds: Yes: S1, S2 Musculoskeletal: No: Back Pain Extremities: No: Cold Edema: No Integumentary: No: Jaundice Neurological: Yes: Alert, Oriented Psychiatric: No: Agitated Assessment/Plan EKG: sinus, old inf infarct, nonspecific ST changes - no prior CT chest cardiomegal, sm gennaro pleural effusions, sm RLL consolidation, bronchiectasis of RUL and FELTON with infiltrate tele: sinus echo 08/2019 tds, nl LV/RV, LA mildly dilated, mid TR, tr AR abnormal EKG - no prior EKG - can obtain old EKG from Dr. Gonzalez's office - trop neg x 3, less likely ACS - echo unremarkable, defer further cardiac workup PNA, shortness of breath, bronchiectasis - manage per primary - received IV lasix x 3 doses - appears euvolemic, defer diuresis cervical discectomy and fusion of C4/5 - manage per surgery COPD - manage per primary, pulm HTN - cont current meds HLD - cont statin dc tele
--- NOTE | 2019-09-02 19:56 | PN ---
Progress Note (short form) - Note Progress Note: 69F s/p CARLOS ENRIQUE C4-C5 and C5-C6 ACDF POD14 -Maintain head of bed 30-45 degrees. -Pain medication: per anaesthesia team; oral meds, no MIXING PAN TENDER; NO NSAID's. -Hard c-collar intermittent Medical problems viz. pneumonia UTI Marked improvement Neck Wound dry new dressing applied Speech OK Neuro Fully intact Feeling generally stronger -DVT PPx: -Mechanical only: LUIS's, SCD's. -Post-op Ancef x 3 doses. -f/u AM labs. -Incentive spirometry. -PT/OT/Rehab, OOB. -PWB B/L UE: 5lbs. -WBAT B/L LE. -Keep dressing clean & dry. -No heavy lifting (>5 lbs), bending or twisting x 6 months post op. -Soft diet; advance diet as tolerated. -B/L UE & LE NV checks. -Discharge planning: f/u [facility] [place] office 09/03/2019; call for appointment; . Ramon Tanner MD (Orthopaedic Surgery).
[2019-09-02] MEDS: GABAPENTIN 300 MG CAPSULE PO SCH (21:22)
[2019-09-02] MEDS: ATORVASTATIN CA 40 MG TABLET (FP) PO SCH (21:22)
[2019-09-02] MEDS: SERTRALINE HCL 50 MG TABLET (FP) PO SCH (21:23)
[2019-09-02] MEDS: PRIMIDONE 50 MG TABLET PO SCH (22:39)
[2019-09-03] MEDS: oxyCODONE HCL 5 MG TABLET PO PRN ×4 (02:34→20:30)
[2019-09-03] MEDS: BACLOFEN 10 MG TABLET (FP) PO SCH ×3 (06:23→22:15)
[2019-09-03 06:48] LABS: BASO % 0.6 % (0-2.0); EOS % 1.7 % (0-4.5); HEMATOCRIT 43.2 % (32.4-45.2); HEMOGLOBIN 13.9 GM/dL (10.7-15.3); MCH 29.2 pg (25.7-33.7); MCHC 32.2 g/dl (32.0-36.0); MEAN CELL VOLUME 90.5 fl (80-96); MEAN PLT VOLUME 9.4 fl (7.5-11.1); MONO % 7.3 % (3.8-10.2); NEUT % 55.4 % (42.8-82.8); PLATELET COUNT 382 K/MM3 (134-434); RBC 4.77 M/mm3 (3.60-5.2); RDW 15.3 % (11.6-15.6)
[2019-09-03 07:22] LABS: ALBUMIN 3.1 g/dl (3.4-5.0); BILIRUBIN,TOTAL 0.3 mg/dL (0.2-1); BLOOD UREA NITROGEN 18.3 mg/dL (7-18); CALCIUM 8.8 mg/dL (8.5-10.1); CREATININE 0.6 mg/dL (0.55-1.3); MAGNESIUM 2.2 mg/dL (1.8-2.4); POTASSIUM 4.8 mmol/L (3.5-5.1); TOT PROT 6.6 g/dl (6.4-8.2)
--- NOTE | 2019-09-03 07:37 | PN ---
Progress Note, Physician Chief Complaint: Feels much improved today. Not requiring O2. Pending transfer to [facility] bed History of Present Illness: Patient is a 69 year old female with a significant past medical history of asthma, fibromyalgia, GERD, diverticulitis, anxiety, HTN, HLD. She is s/p C4- C5 anterior cervical discectomy and fusion, partial corpectomy C5-C6 on 08/24/2019 , hospitalization complicated when patient became hypotensive, hypoxic on 2019 and was transferred from [facility] to [facility] for close monitoring of airway. Chest ct shows pneumonia, and urine cultures +esbl and kleb. Vitals are now stable, mentation back to baseline bp now in normal ranges. She is being weaned off oxygen as tolerated. Now on day #4 of ertapenem for esbl/kleb uti. - Current Medication List Current Medications: Active Medications Acetaminophen (Tylenol -) 650 mg PO Q4H PRN PRN Reason: PAIN LEVEL 3-5 Last Admin: 08/31/19 23:14 Dose: 650 mg Albuterol/Ipratropium (Duoneb -) 1 amp NEB Q4H PRN PRN Reason: SHORTNESS OF BREATH Last Admin: 08/31/19 21:20 Dose: 1 amp Atorvastatin Calcium (Lipitor -) 40 mg PO [facility] Last Admin: 09/02/19 21:22 Dose: 40 mg Baclofen (Lioresal -) 10 mg PO TID [facility] Last Admin: 09/03/19 06:23 Dose: 10 mg Docusate Sodium (Colace -) 100 mg PO BID [facility] Last Admin: 09/02/19 21:21 Dose: 100 mg Gabapentin (Neurontin -) 600 mg PO [facility] Last Admin: 09/02/19 21:22 Dose: 600 mg Ertapenem 1 gm/ Sodium (Chloride) 50 mls @ 100 mls/hr IVPB DAILY [facility] Last Admin: 09/02/19 10:36 Dose: 100 mls/hr Losartan Potassium (Cozaar -) 50 mg PO DAILY [facility] Last Admin: 09/02/19 10:36 Dose: 50 mg Nystatin (Mycostatin Ointment -) 1 applic TP BID [facility] Last Admin: 09/02/19 22:39 Dose: 1 applic Oxycodone HCl (Roxicodone -) 10 mg PO Q6H PRN PRN Reason: PAIN LEVEL 7 - 10 Last Admin: 09/03/19 02:34 Dose: 10 mg Oxycodone HCl (Roxicodone -) 5 mg PO Q4H PRN PRN Reason: PAIN LEVEL 4 - 6 Last Admin: 09/01/19 17:57 Dose: 5 mg Polyethylene Glycol (Miralax (For Daily Use) -) 17 gm PO DAILY [facility] Last Admin: 09/02/19 10:36 Dose: 17 gm Prednisone (Deltasone -) 10 mg PO ONCE ONE Stop: 09/03/19 10:01 Primidone (Mysoline -) 50 mg PO [facility] Last Admin: 09/02/19 22:39 Dose: 50 mg Senna (Senna -) 1 tab PO BID [facility] Last Admin: 09/02/19 21:22 Dose: 1 tab Sertraline HCl (Zoloft -) 100 mg PO [facility] Last Admin: 09/02/19 21:23 Dose: 100 mg Tetrahydrozoline HCl (Visine -) 1 drop OU QID [facility] Last Admin: 09/02/19 21:23 Dose: 1 drop - Objective Vital Signs: Vital Signs Temperature 98.2 F 09/03/19 06:00 Pulse Rate 70 09/03/19 06:00 Respiratory Rate 18 09/03/19 06:00 Blood Pressure 129/62 09/03/19 06:00 O2 Sat by Pulse Oximetry (%) 96 09/02/19 21:00 Constitutional: Yes: Well Nourished, No Distress, Calm Eyes: Yes: WNL, Conjunctiva Clear HENT: Yes: Other (cervical collar presently off, drsg CDI) Neck: Yes: WNL, Supple, Trachea Midline Cardiovascular: Yes: WNL, Regular Rate and Rhythm Respiratory: Yes: WNL, Regular, CTA Bilaterally Gastrointestinal: Yes: WNL, Normal Bowel Sounds ...Rectal Exam: Yes: Deferred Genitourinary: Yes: WNL Breast(s): Yes: WNL Musculoskeletal: Yes: WNL Extremities: Yes: WNL Edema: No Peripheral Pulses WNL: Yes Integumentary: Yes: WNL Wound/Incision: Yes: Clean/Dry, Dressing Dry and Intact Neurological: Yes: WNL, Alert, Oriented ...Motor Strength: WNL Psychiatric: Yes: WNL Labs: CBC, BMP 09/03/19 05:15 09/03/19 05:15 Problem List - Problems (1) Bronchiectasis Assessment/Plan: Chest CT shows significant bronchiectasis of right upper lobe with surrounding infiltration, localized bronchiectasis left upper lobe with groundglass infiltrates. on ertapenem day 4 Code(s): J47.9 - BRONCHIECTASIS, UNCOMPLICATED (2) COPD (chronic obstructive pulmonary disease) Assessment/Plan: stable c/w inhaled bronchodilators Code(s): J44.9 - CHRONIC OBSTRUCTIVE PULMONARY DISEASE, UNSPECIFIED (3) ESBL (extended spectrum beta-lactamase) producing bacteria infection Assessment/Plan: noted on Ucx day 4 ertaopenem ID following isolation precautions Code(s): A49.9 - BACTERIAL INFECTION, UNSPECIFIED; Z16.12 - EXTENDED SPECTRUM BETA LACTAMASE (ESBL) RESISTANCE (4) Eye hemorrhage Assessment/Plan: resolvong artifical tears as needed Code(s): H57.89 - OTHER SPECIFIED DISORDERS OF EYE AND ADNEXA (5) Hypertension Assessment/Plan: BP well controlled c/w norvasc Code(s): I10 - ESSENTIAL (PRIMARY) HYPERTENSION (6) Klebsiella infection Assessment/Plan: c/w ertpenem ID following Code(s): A49.8 - OTHER BACTERIAL INFECTIONS OF UNSPECIFIED SITE (7) Pneumonia Assessment/Plan: RUL infiltrate on CT scan c/w abx supplemental O2 maintain pulse oximetry Code(s): J18.9 - PNEUMONIA, UNSPECIFIED ORGANISM (8) Prophylactic measure Assessment/Plan: FEN Fluids: adequate PO intake Electrolytes: monitor & replete as needed Nutrition: soft diet DVT scd Dispo Maintain as inpatient full code discharge planning Code(s): Z29.9 - ENCOUNTER FOR PROPHYLACTIC MEASURES, UNSPECIFIED (9) S/P cervical discectomy Assessment/Plan: s/p anterior cervicaldiscectomy, c4-5 pain management with roxicodone, oxycontin stopped. hard collar in place, can be taken off for small peroids as per Dr Tanner +encouraged use of incentive spirometer ambulation, pt/ot therapy Code(s): Z98.890 - OTHER SPECIFIED POSTPROCEDURAL STATES (10) Shortness of breath Assessment/Plan: resolving. abg normal, with no co2 retention chest ct w/o contrast 08/19/2019: cardiomegaly, small bilateral pleural effusion, small right lower lobe consolidation, significant bronchiectasis right upper lobe with surrounding infiltration, localized bronchiectasis left upper lobe with ground glass infiltrate. maintain on continuous pulse ox monitoring, as she is being weaned off oxygen airway patent Code(s): R06.02 - SHORTNESS OF BREATH (11) Aspiration into airway Assessment/Plan: MBS (-) aspiration Diet upgraded with compensatory swallowing rec made Code(s): T17.908A - UNSP FB IN RESP TRACT, PART UNSP CAUSING OTH INJURY, INIT Visit type - Emergency Visit Emergency Visit: Yes ED Registration Date: 08/24/19 Care time: The patient presented to the Emergency Department on the above date and was hospitalized for further evaluation of their emergent condition. - New Patient This patient is new to me today: Yes Date on this admission: 09/03/19 - Critical Care Critical Care patient: No - Discharge Referral Referred to [facility] Med P.C.: No
[2019-09-03] MEDS ORDERED: predniSONE 10 MG TABLET (UD) PO ONE (10:00)
[2019-09-03] MEDS: SENNOSIDES 8.6MG TABLET (FP) PO SCH ×2 (11:07→22:16)
[2019-09-03] MEDS: DOCUSATE SODIUM 100 MG CAPSULE (FP) PO SCH ×2 (11:07→22:16)
[2019-09-03] MEDS: LOSARTAN POTASSIUM 50 MG TABLET (FP) PO SCH (11:08)
[2019-09-03] MEDS: POLYETHYLENE GLYCOL 3350 119 GM BTL PO SCH (11:09)
[2019-09-03] MEDS: TETRAHYDROZOLINE HCL EYE DROPS OU SCH ×4 (11:10→22:17)
[2019-09-03] MEDS: ERTAPENEM SODIUM 1 GM in SODIUM CHLORIDE 50 ML IVPB SCH (11:11)
[2019-09-03] MEDS: NYSTATIN 100000 UNIT/GM TOPICAL OINTMENT 15 GM TUBE TP SCH ×2 (11:15→22:17)
--- NOTE | 2019-09-03 11:30 | PN ---
Progress Note (short form) - Note Progress Note: s:no chest pain, palps, dizziness, dyspnea Current Medications Generic Name Dose Route Start Last Admin Trade Name Freq PRN Reason Stop Dose Admin Acetaminophen 650 mg 08/29/19 02:41 08/31/19 23:14 Tylenol - PO 650 mg Q4H PRN Administration PAIN LEVEL 3-5 Albuterol/Ipratropium 1 amp 08/29/19 02:41 08/31/19 21:20 Duoneb - NEB 1 amp Q4H PRN Administration SHORTNESS OF BREATH Atorvastatin Calcium 40 mg 08/29/19 22:00 09/02/19 21:22 Lipitor - PO 40 mg HS [facility] Administration Baclofen 10 mg 08/29/19 06:00 09/03/19 06:23 Lioresal - PO 10 mg TID [facility] Administration Docusate Sodium 100 mg 08/29/19 10:00 09/03/19 11:07 Colace - PO Not Given BID [facility] Gabapentin 600 mg 08/29/19 22:00 09/02/19 21:22 Neurontin - PO 600 mg HS [facility] Administration Ertapenem 1 gm/ Sodium 50 mls @ 100 mls/hr 08/31/19 15:15 09/03/19 11:11 Chloride IVPB 100 mls/hr DAILY [facility] Administration Losartan Potassium 50 mg 08/29/19 10:00 09/03/19 11:08 Cozaar - PO 50 mg DAILY [facility] Administration Nystatin 1 applic 08/29/19 10:00 09/03/19 11:15 Mycostatin Ointment - TP 1 applic BID [facility] Administration Oxycodone HCl 10 mg 08/29/19 02:41 09/03/19 08:07 Roxicodone - PO 10 mg Q6H PRN Administration PAIN LEVEL 7 - 10 Oxycodone HCl 5 mg 08/30/19 10:57 09/01/19 17:57 Roxicodone - PO 5 mg Q4H PRN Administration PAIN LEVEL 4 - 6 Polyethylene Glycol 17 gm 08/29/19 10:00 09/03/19 11:09 Miralax (For Daily Use) - PO Not Given DAILY [facility] Primidone 50 mg 08/29/19 22:00 09/02/19 22:39 Mysoline - PO 50 mg HS [facility] Administration Senna 1 tab 08/29/19 10:00 09/03/19 11:07 Senna - PO 1 tab BID [facility] Administration Sertraline HCl 100 mg 08/29/19 22:00 09/02/19 21:23 Zoloft - PO 100 mg HS [facility] Administration Tetrahydrozoline HCl 1 drop 08/29/19 10:00 09/03/19 11:10 Visine - OU 1 drop QID [facility] Administration Vital Signs Period Temp Pulse Resp BP Sys/Murray Pulse Ox Last 24 Hr 97.3 F-98.2 F 66-72 16-18 120-132/62-73 96-97 Constitutional: Yes: No Distress, Calm Eyes: Yes: Conjunctiva Clear Respiratory: Yes: Regular, CTA Bilaterally Gastrointestinal: Yes: Normal Bowel Sounds, Soft Cardiovascular: Yes: Regular Rate and Rhythm JVD: No Heart Sounds: Yes: S1, S2 Musculoskeletal: No: Back Pain Extremities: No: Cold Edema: No Integumentary: No: Jaundice Neurological: Yes: Alert, Oriented Psychiatric: No: Agitated CBC, BMP 09/03/19 05:15 09/03/19 05:15 Assessment/Plan EKG: sinus, old inf infarct, nonspecific ST changes - no prior CT chest cardiomegal, sm gennaro pleural effusions, sm RLL consolidation, bronchiectasis of RUL and FELTON with infiltrate tele: sinus echo 08/2019 tds, nl LV/RV, LA mildly dilated, mid TR, tr AR abnormal EKG - no prior EKG - can obtain old EKG from Dr. Gonzalez's office - trop neg x 3, less likely ACS - echo unremarkable, defer further cardiac workup PNA, shortness of breath, bronchiectasis - manage per primary - received IV lasix x 3 doses - appears euvolemic, defer diuresis cervical discectomy and fusion of C4/5 - manage per surgery COPD - manage per primary, pulm HTN - cont current meds HLD - cont statin dc tele
--- NOTE | 2019-09-03 12:53 | PN ---
Progress Note, COMMUNICATIONS REPRESENTATIVE - Note Progress Note: Selected Entries 09/02/19 09/02/19 09/02/19 02:00 06:00 08:45 Breakfast Supper Temperature 98.1 F 97.8 F 98.2 F 09/02/19 09/02/19 09/02/19 11:19 14:35 18:00 Breakfast 50% Supper Temperature 97.5 F L 98 F 09/02/19 09/02/19 09/03/19 18:30 22:00 02:00 Breakfast Supper 0 Temperature 97.5 F L 97.3 F L 09/03/19 09/03/19 06:00 10:23 Breakfast 75% Supper Temperature 98.2 F Laboratory Tests 08/31/19 09/01/19 09/02/19 06:20 05:35 05:48 WBC 11.9 H 12.0 H 11.6 H 09/03/19 05:15 WBC 13.0 H MBS (-) aspiration, seated fully upright to 90 dgrees. Diet upgraded with compensatory swallowing rec made Pt doing very well, denies difficulty, no further cough response sitting upright.
--- NOTE | 2019-09-03 14:15 | PN ---
Progress Note, Physician History of Present Illness: stable no new issues - Current Medication List Current Medications: Active Medications Acetaminophen (Tylenol -) 650 mg PO Q4H PRN PRN Reason: PAIN LEVEL 3-5 Last Admin: 08/31/19 23:14 Dose: 650 mg Albuterol/Ipratropium (Duoneb -) 1 amp NEB Q4H PRN PRN Reason: SHORTNESS OF BREATH Last Admin: 08/31/19 21:20 Dose: 1 amp Atorvastatin Calcium (Lipitor -) 40 mg PO [facility] Last Admin: 09/02/19 21:22 Dose: 40 mg Baclofen (Lioresal -) 10 mg PO TID [facility] Last Admin: 09/03/19 13:51 Dose: 10 mg Docusate Sodium (Colace -) 100 mg PO BID [facility] Last Admin: 09/03/19 11:07 Dose: Not Given Gabapentin (Neurontin -) 600 mg PO [facility] Last Admin: 09/02/19 21:22 Dose: 600 mg Ertapenem 1 gm/ Sodium (Chloride) 50 mls @ 100 mls/hr IVPB DAILY [facility] Last Admin: 09/03/19 11:11 Dose: 100 mls/hr Losartan Potassium (Cozaar -) 50 mg PO DAILY [facility] Last Admin: 09/03/19 11:08 Dose: 50 mg Nystatin (Mycostatin Ointment -) 1 applic TP BID [facility] Last Admin: 09/03/19 11:15 Dose: 1 applic Oxycodone HCl (Roxicodone -) 10 mg PO Q6H PRN PRN Reason: PAIN LEVEL 7 - 10 Last Admin: 09/03/19 13:51 Dose: 10 mg Oxycodone HCl (Roxicodone -) 5 mg PO Q4H PRN PRN Reason: PAIN LEVEL 4 - 6 Last Admin: 09/01/19 17:57 Dose: 5 mg Polyethylene Glycol (Miralax (For Daily Use) -) 17 gm PO DAILY [facility] Last Admin: 09/03/19 11:09 Dose: Not Given Primidone (Mysoline -) 50 mg PO [facility] Last Admin: 09/02/19 22:39 Dose: 50 mg Senna (Senna -) 1 tab PO BID [facility] Last Admin: 09/03/19 11:07 Dose: 1 tab Sertraline HCl (Zoloft -) 100 mg PO [facility] Last Admin: 09/02/19 21:23 Dose: 100 mg Tetrahydrozoline HCl (Visine -) 1 drop OU QID [facility] Last Admin: 09/03/19 13:54 Dose: 1 drop - Objective Vital Signs: Vital Signs Temperature 97.8 F 09/03/19 10:00 Pulse Rate 69 09/03/19 10:00 Respiratory Rate 22 H 09/03/19 10:00 Blood Pressure 116/66 09/03/19 10:00 O2 Sat by Pulse Oximetry (%) 97 09/03/19 09:00 Constitutional: Yes: No Distress, Calm Cardiovascular: Yes: S1, S2 Respiratory: Yes: Regular, CTA Bilaterally Gastrointestinal: Yes: Normal Bowel Sounds, Soft Musculoskeletal: Yes: WNL Extremities: Yes: WNL Wound/Incision: Yes: Dressing Dry and Intact Neurological: Yes: Alert, Oriented Psychiatric: Yes: Alert, Oriented Labs: CBC, BMP 09/03/19 05:15 09/03/19 05:15 Assessment/Plan Problem List - Problems (1) S/P cervical discectomy Code(s): Z98.890 - OTHER SPECIFIED POSTPROCEDURAL STATES (2) COPD (chronic obstructive pulmonary disease) Code(s): J44.9 - CHRONIC OBSTRUCTIVE PULMONARY DISEASE, UNSPECIFIED (3) Hypertension Code(s): I10 - ESSENTIAL (PRIMARY) HYPERTENSION (4) Eye hemorrhage Code(s): H57.89 - OTHER SPECIFIED DISORDERS OF EYE AND ADNEXA (5) hypotension 6 hypoxia 7 infiltrate in the lung plan continue current mgmt resp support abx complete 2 week course rest as per the team
[2019-09-03] MEDS ORDERED: PT OWN MED DRAWER 7, Y5N ONE (22:13)
[2019-09-03] MEDS: SERTRALINE HCL 50 MG TABLET (FP) PO SCH (22:15)
[2019-09-03] MEDS: GABAPENTIN 300 MG CAPSULE PO SCH (22:15)
[2019-09-03] MEDS: ATORVASTATIN CA 40 MG TABLET (FP) PO SCH (22:15)
[2019-09-03] MEDS: PRIMIDONE 50 MG TABLET PO SCH (22:17)
[2019-09-04] MEDS: oxyCODONE HCL 5 MG TABLET PO PRN ×4 (05:11→21:46)
[2019-09-04] MEDS: BACLOFEN 10 MG TABLET (FP) PO SCH ×3 (05:12→21:46)
[2019-09-04] MEDS: ACETAMINOPHEN 325 MG TABLET (FP) PO PRN ×3 (05:12→17:31)
[2019-09-04 06:44] LABS: BASO % 0.9 % (0-2.0); EOS % 1.9 % (0-4.5); HEMATOCRIT 41.9 % (32.4-45.2); HEMOGLOBIN 13.8 GM/dL (10.7-15.3); LYMPH % 38.5 % (8-40); MCH 29.6 pg (25.7-33.7); MEAN CELL VOLUME 89.6 fl (80-96); MEAN PLT VOLUME 9.7 fl (7.5-11.1); MONO % 6.9 % (3.8-10.2); NEUT % 51.8 % (42.8-82.8); PLATELET COUNT 388 K/MM3 (134-434); RBC 4.68 M/mm3 (3.60-5.2); RDW 15.1 % (11.6-15.6); WHITE BLOOD COUNT 13.4 K/mm3 (4.0-10.0)
[2019-09-04 07:20] LABS: ALBUMIN 2.8 g/dl (3.4-5.0); BILIRUBIN,TOTAL 0.4 mg/dL (0.2-1); BLOOD UREA NITROGEN 18.5 mg/dL (7-18); CALCIUM 8.6 mg/dL (8.5-10.1); CREATININE 0.7 mg/dL (0.55-1.3); POTASSIUM 4.8 mmol/L (3.5-5.1); TOT PROT 6.4 g/dl (6.4-8.2)
--- NOTE | 2019-09-04 07:48 | PN ---
Progress Note, Physician Chief Complaint: Feels much improved today. Not requiring O2. Insurance clearance pending for home infusion therapy. Needs IV ertapenem x 2 weeks until 09/14 History of Present Illness: Patient is a 69 year old female with a significant past medical history of asthma, fibromyalgia, GERD, diverticulitis, anxiety, HTN, HLD. She is s/p C4- C5 anterior cervical discectomy and fusion, partial corpectomy C5-C6 on 08/24/2019 , hospitalization complicated when patient became hypotensive, hypoxic on 2019 and was transferred from [facility] to [facility] for close monitoring of airway. Chest ct shows pneumonia, and urine cultures +esbl and kleb. Vitals are now stable, mentation back to baseline bp now in normal ranges. She is being weaned off oxygen as tolerated. Now on day #4 of ertapenem for esbl/kleb uti. - Current Medication List Current Medications: Active Medications Acetaminophen (Tylenol -) 650 mg PO Q4H PRN PRN Reason: PAIN LEVEL 3-5 Last Admin: 09/04/19 05:12 Dose: 650 mg Albuterol/Ipratropium (Duoneb -) 1 amp NEB Q4H PRN PRN Reason: SHORTNESS OF BREATH Last Admin: 08/31/19 21:20 Dose: 1 amp Atorvastatin Calcium (Lipitor -) 40 mg PO [facility] Last Admin: 09/03/19 22:15 Dose: 40 mg Baclofen (Lioresal -) 10 mg PO TID [facility] Last Admin: 09/04/19 05:12 Dose: 10 mg Docusate Sodium (Colace -) 100 mg PO BID [facility] Last Admin: 09/03/19 22:16 Dose: Not Given Gabapentin (Neurontin -) 600 mg PO [facility] Last Admin: 09/03/19 22:15 Dose: 600 mg Ertapenem 1 gm/ Sodium (Chloride) 50 mls @ 100 mls/hr IVPB DAILY [facility] Last Admin: 09/03/19 11:11 Dose: 100 mls/hr Losartan Potassium (Cozaar -) 50 mg PO DAILY [facility] Last Admin: 09/03/19 11:08 Dose: 50 mg Nystatin (Mycostatin Ointment -) 1 applic TP BID [facility] Last Admin: 09/03/19 22:17 Dose: 1 applic Oxycodone HCl (Roxicodone -) 10 mg PO Q6H PRN PRN Reason: PAIN LEVEL 7 - 10 Last Admin: 09/04/19 05:11 Dose: 10 mg Oxycodone HCl (Roxicodone -) 5 mg PO Q4H PRN PRN Reason: PAIN LEVEL 4 - 6 Last Admin: 09/01/19 17:57 Dose: 5 mg Polyethylene Glycol (Miralax (For Daily Use) -) 17 gm PO DAILY [facility] Last Admin: 09/03/19 11:09 Dose: Not Given Primidone (Mysoline -) 50 mg PO [facility] Last Admin: 09/03/19 22:17 Dose: 50 mg Senna (Senna -) 1 tab PO BID [facility] Last Admin: 09/03/19 22:16 Dose: Not Given Sertraline HCl (Zoloft -) 100 mg PO [facility] Last Admin: 09/03/19 22:15 Dose: 100 mg Tetrahydrozoline HCl (Visine -) 1 drop OU QID [facility] Last Admin: 09/03/19 22:17 Dose: 1 drop - Objective Vital Signs: Vital Signs Temperature 98.0 F 09/04/19 05:12 Pulse Rate 73 09/04/19 05:12 Respiratory Rate 20 09/04/19 05:12 Blood Pressure 139/68 09/04/19 05:12 O2 Sat by Pulse Oximetry (%) 92 L 09/03/19 21:00 Additional Findings/Remarks: Constitutional: Yes: Well Nourished, No Distress, Calm Eyes: Yes: WNL, Conjunctiva Clear HENT: Yes: Other (cervical collar presently off, drsg CDI) Neck: Yes: WNL, Supple, Trachea Midline Cardiovascular: Yes: WNL, Regular Rate and Rhythm Respiratory: Yes: WNL, Regular, CTA Bilaterally Gastrointestinal: Yes: WNL, Normal Bowel Sounds ...Rectal Exam: Yes: Deferred Genitourinary: Yes: WNL Breast(s): Yes: WNL Musculoskeletal: Yes: WNL Extremities: Yes: WNL Edema: No Peripheral Pulses WNL: Yes Integumentary: Yes: WNL Wound/Incision: Yes: Clean/Dry, Dressing Dry and Intact Neurological: Yes: WNL, Alert, Oriented ...Motor Strength: WNL Psychiatric: Yes: WNL Labs: CBC, BMP 09/04/19 05:25 09/04/19 05:25 Problem List - Problems (1) Bronchiectasis Assessment/Plan: Chest CT shows significant bronchiectasis of right upper lobe with surrounding infiltration, localized bronchiectasis left upper lobe with groundglass infiltrates. on ertapenem day 12/30 Code(s): J47.9 - BRONCHIECTASIS, UNCOMPLICATED (2) COPD (chronic obstructive pulmonary disease) Assessment/Plan: stable c/w inhaled bronchodilators Code(s): J44.9 - CHRONIC OBSTRUCTIVE PULMONARY DISEASE, UNSPECIFIED (3) ESBL (extended spectrum beta-lactamase) producing bacteria infection Assessment/Plan: noted on Ucx day 12/30 ertaopenem ID following isolation precautions Code(s): A49.9 - BACTERIAL INFECTION, UNSPECIFIED; Z16.12 - EXTENDED SPECTRUM BETA LACTAMASE (ESBL) RESISTANCE (4) Eye hemorrhage Assessment/Plan: resolving artifical tears as needed Code(s): H57.89 - OTHER SPECIFIED DISORDERS OF EYE AND ADNEXA (5) Hypertension Assessment/Plan: BP well controlled c/w norvasc Code(s): I10 - ESSENTIAL (PRIMARY) HYPERTENSION (6) Klebsiella infection Assessment/Plan: c/w ertpenem ID following Code(s): A49.8 - OTHER BACTERIAL INFECTIONS OF UNSPECIFIED SITE (7) Pneumonia Assessment/Plan: RUL infiltrate on CT scan c/w abx supplemental O2 maintain pulse oximetry Code(s): J18.9 - PNEUMONIA, UNSPECIFIED ORGANISM (8) Prophylactic measure Assessment/Plan: FEN Fluids: adequate PO intake Electrolytes: monitor & replete as needed Nutrition: soft diet DVT scd Dispo Maintain as inpatient full code discharge planning Code(s): Z29.9 - ENCOUNTER FOR PROPHYLACTIC MEASURES, UNSPECIFIED (9) S/P cervical discectomy Assessment/Plan: POD#11 s/p anterior cervicaldiscectomy, c4-5 pain management with roxicodone, oxycontin stopped. hard collar in place, can be taken off for small peroids as per Dr Tanner +encouraged use of incentive spirometer ambulation, pt/ot therapy Code(s): Z98.890 - OTHER SPECIFIED POSTPROCEDURAL STATES (10) Shortness of breath Assessment/Plan: resolving. abg normal, with no co2 retention chest ct w/o contrast 08/19/2019: cardiomegaly, small bilateral pleural effusion, small right lower lobe consolidation, significant bronchiectasis right upper lobe with surrounding infiltration, localized bronchiectasis left upper lobe with ground glass infiltrate. maintain on continuous pulse ox monitoring, as she is being weaned off oxygen airway patent Code(s): R06.02 - SHORTNESS OF BREATH (11) Aspiration into airway Assessment/Plan: MBS (-) aspiration Diet upgraded with compensatory swallowing rec made Code(s): T17.908A - UNSP FB IN RESP TRACT, PART UNSP CAUSING OTH INJURY, INIT Visit type - Emergency Visit Emergency Visit: Yes ED Registration Date: 08/24/19 Care time: The patient presented to the Emergency Department on the above date and was hospitalized for further evaluation of their emergent condition. - New Patient This patient is new to me today: No - Critical Care Critical Care patient: No - Discharge Referral Referred to [facility] Med P.C.: No
[2019-09-04] MEDS: ERTAPENEM SODIUM 1 GM in SODIUM CHLORIDE 50 ML IVPB SCH (10:44)
[2019-09-04] MEDS: NYSTATIN 100000 UNIT/GM TOPICAL OINTMENT 15 GM TUBE TP SCH ×2 (10:44→21:46)
[2019-09-04] MEDS: DOCUSATE SODIUM 100 MG CAPSULE (FP) PO SCH ×2 (10:44→21:38)
[2019-09-04] MEDS: POLYETHYLENE GLYCOL 3350 119 GM BTL PO SCH (10:44)
[2019-09-04] MEDS: LOSARTAN POTASSIUM 50 MG TABLET (FP) PO SCH (10:44)
[2019-09-04] MEDS: SENNOSIDES 8.6MG TABLET (FP) PO SCH ×2 (10:45→21:46)
[2019-09-04] MEDS: TETRAHYDROZOLINE HCL EYE DROPS OU SCH ×4 (10:45→21:46)
--- NOTE | 2019-09-04 15:17 | PN ---
Progress Note (short form) - Note Progress Note: s:no chest pain, palps, dizziness, dyspnea Current Medications Generic Name Dose Route Start Last Admin Trade Name Freq PRN Reason Stop Dose Admin Acetaminophen 650 mg 08/29/19 02:41 09/04/19 11:31 Tylenol - PO 650 mg Q4H PRN Administration PAIN LEVEL 3-5 Albuterol/Ipratropium 1 amp 08/29/19 02:41 08/31/19 21:20 Duoneb - NEB 1 amp Q4H PRN Administration SHORTNESS OF BREATH Atorvastatin Calcium 40 mg 08/29/19 22:00 09/03/19 22:15 Lipitor - PO 40 mg HS [facility] Administration Baclofen 10 mg 08/29/19 06:00 09/04/19 14:26 Lioresal - PO 10 mg TID [facility] Administration Docusate Sodium 100 mg 08/29/19 10:00 09/04/19 10:44 Colace - PO Not Given BID [facility] Gabapentin 600 mg 08/29/19 22:00 09/03/19 22:15 Neurontin - PO 600 mg HS [facility] Administration Ertapenem 1 gm/ Sodium 50 mls @ 100 mls/hr 08/31/19 15:15 09/04/19 10:44 Chloride IVPB 100 mls/hr DAILY [facility] Administration Losartan Potassium 50 mg 08/29/19 10:00 09/04/19 10:44 Cozaar - PO 50 mg DAILY [facility] Administration Nystatin 1 applic 08/29/19 10:00 09/04/19 10:44 Mycostatin Ointment - TP 1 applic BID [facility] Administration Oxycodone HCl 5 mg 08/30/19 10:57 09/01/19 17:57 Roxicodone - PO 5 mg Q4H PRN Administration PAIN LEVEL 4 - 6 Polyethylene Glycol 17 gm 08/29/19 10:00 09/04/19 10:44 Miralax (For Daily Use) - PO Not Given DAILY [facility] Primidone 50 mg 08/29/19 22:00 09/03/19 22:17 Mysoline - PO 50 mg HS [facility] Administration Senna 1 tab 08/29/19 10:00 09/04/19 10:45 Senna - PO Not Given BID [facility] Sertraline HCl 100 mg 08/29/19 22:00 09/03/19 22:15 Zoloft - PO 100 mg HS [facility] Administration Tetrahydrozoline HCl 1 drop 08/29/19 10:00 09/04/19 14:32 Visine - OU 1 drop QID [facility] Administration Vital Signs Period Temp Pulse Resp BP Sys/Murray Pulse Ox Last 24 Hr 97.8 F-98.0 F 64-93 18-20 103-139/44-68 92-92 Constitutional: Yes: No Distress, Calm Eyes: Yes: Conjunctiva Clear Respiratory: Yes: Regular, CTA Bilaterally Gastrointestinal: Yes: Normal Bowel Sounds, Soft Cardiovascular: Yes: Regular Rate and Rhythm JVD: No Heart Sounds: Yes: S1, S2 Musculoskeletal: No: Back Pain Extremities: No: Cold Edema: No Integumentary: No: Jaundice Neurological: Yes: Alert, Oriented Psychiatric: No: Agitated CBC, BMP 09/04/19 05:25 09/04/19 05:25 Assessment/Plan EKG: sinus, old inf infarct, nonspecific ST changes - no prior CT chest cardiomegal, sm gennaro pleural effusions, sm RLL consolidation, bronchiectasis of RUL and FELTON with infiltrate tele: sinus echo 08/2019 tds, nl LV/RV, LA mildly dilated, mid TR, tr AR abnormal EKG - no prior EKG - can obtain old EKG from Dr. Gonzalez's office - trop neg x 3, less likely ACS - echo unremarkable, defer further cardiac workup PNA, shortness of breath, bronchiectasis - manage per primary - received IV lasix x 3 doses - appears euvolemic, defer diuresis cervical discectomy and fusion of C4/5 - manage per surgery COPD - manage per primary, pulm HTN - cont current meds HLD - cont statin dc tele
--- NOTE | 2019-09-04 16:05 | PN ---
Progress Note, Physician History of Present Illness: stable no new issues - Current Medication List Current Medications: Active Medications Acetaminophen (Tylenol -) 650 mg PO Q4H PRN PRN Reason: PAIN LEVEL 3-5 Last Admin: 09/04/19 11:31 Dose: 650 mg Albuterol/Ipratropium (Duoneb -) 1 amp NEB Q4H PRN PRN Reason: SHORTNESS OF BREATH Last Admin: 08/31/19 21:20 Dose: 1 amp Atorvastatin Calcium (Lipitor -) 40 mg PO [facility] Last Admin: 09/03/19 22:15 Dose: 40 mg Baclofen (Lioresal -) 10 mg PO TID [facility] Last Admin: 09/04/19 14:26 Dose: 10 mg Docusate Sodium (Colace -) 100 mg PO BID [facility] Last Admin: 09/04/19 10:44 Dose: Not Given Gabapentin (Neurontin -) 600 mg PO [facility] Last Admin: 09/03/19 22:15 Dose: 600 mg Ertapenem 1 gm/ Sodium (Chloride) 50 mls @ 100 mls/hr IVPB DAILY [facility] Last Admin: 09/04/19 10:44 Dose: 100 mls/hr Losartan Potassium (Cozaar -) 50 mg PO DAILY [facility] Last Admin: 09/04/19 10:44 Dose: 50 mg Nystatin (Mycostatin Ointment -) 1 applic TP BID [facility] Last Admin: 09/04/19 10:44 Dose: 1 applic Oxycodone HCl (Roxicodone -) 5 mg PO Q4H PRN PRN Reason: PAIN LEVEL 4 - 6 Last Admin: 09/01/19 17:57 Dose: 5 mg Polyethylene Glycol (Miralax (For Daily Use) -) 17 gm PO DAILY [facility] Last Admin: 09/04/19 10:44 Dose: Not Given Primidone (Mysoline -) 50 mg PO [facility] Last Admin: 09/03/19 22:17 Dose: 50 mg Senna (Senna -) 1 tab PO BID [facility] Last Admin: 09/04/19 10:45 Dose: Not Given Sertraline HCl (Zoloft -) 100 mg PO [facility] Last Admin: 09/03/19 22:15 Dose: 100 mg Tetrahydrozoline HCl (Visine -) 1 drop OU QID [facility] Last Admin: 09/04/19 14:32 Dose: 1 drop - Objective Vital Signs: Vital Signs Temperature 98.0 F 09/04/19 14:00 Pulse Rate 93 H 09/04/19 14:00 Respiratory Rate 18 09/04/19 14:00 Blood Pressure 103/44 L 09/04/19 14:00 O2 Sat by Pulse Oximetry (%) 92 L 09/04/19 09:00 Constitutional: Yes: No Distress, Calm Cardiovascular: Yes: Regular Rate and Rhythm Respiratory: Yes: Regular, CTA Bilaterally Gastrointestinal: Yes: Normal Bowel Sounds, Soft Musculoskeletal: Yes: WNL Extremities: Yes: WNL Wound/Incision: Yes: Dressing Dry and Intact Neurological: Yes: Alert, Oriented Psychiatric: Yes: Alert, Oriented Labs: CBC, BMP 09/04/19 05:25 09/04/19 05:25 Assessment/Plan Problem List - Problems (1) S/P cervical discectomy Code(s): Z98.890 - OTHER SPECIFIED POSTPROCEDURAL STATES (2) COPD (chronic obstructive pulmonary disease) Code(s): J44.9 - CHRONIC OBSTRUCTIVE PULMONARY DISEASE, UNSPECIFIED (3) Hypertension Code(s): I10 - ESSENTIAL (PRIMARY) HYPERTENSION (4) Eye hemorrhage Code(s): H57.89 - OTHER SPECIFIED DISORDERS OF EYE AND ADNEXA (5) hypotension 6 hypoxia 7 infiltrate in the lung plan continue current mgmt resp support abx complete 2 week course rest as per the team
[2019-09-04] MEDS: SERTRALINE HCL 50 MG TABLET (FP) PO SCH (21:45)
[2019-09-04] MEDS: GABAPENTIN 300 MG CAPSULE PO SCH (21:45)
[2019-09-04] MEDS: PRIMIDONE 50 MG TABLET PO SCH (21:46)
[2019-09-04] MEDS: ATORVASTATIN CA 40 MG TABLET (FP) PO SCH (21:46)
[2019-09-05] MEDS: oxyCODONE HCL 5 MG TABLET PO PRN ×3 (06:20→18:38)
[2019-09-05] MEDS: BACLOFEN 10 MG TABLET (FP) PO SCH ×3 (06:20→21:47)
[2019-09-05 07:48] LABS: BASO % 0.8 % (0-2.0); HEMATOCRIT 47.5 % (32.4-45.2); HEMOGLOBIN 15.6 GM/dL (10.7-15.3); LYMPH % 35.4 % (8-40); MCH 29.6 pg (25.7-33.7); MCHC 32.7 g/dl (32.0-36.0); MEAN CELL VOLUME 90.4 fl (80-96); MEAN PLT VOLUME 9.5 fl (7.5-11.1); MONO % 5.9 % (3.8-10.2); NEUT % 55.9 % (42.8-82.8); PLATELET COUNT 398 K/MM3 (134-434); RBC 5.26 M/mm3 (3.60-5.2); RDW 15.1 % (11.6-15.6); WHITE BLOOD COUNT 10.4 K/mm3 (4.0-10.0)
--- NOTE | 2019-09-05 07:49 | PN ---
Progress Note, Physician Chief Complaint: Much improved Not requiring O2. Insurance clearance pending for home infusion therapy. Needs IV ertapenem x 2 weeks until 09/14 History of Present Illness: Patient is a 69 year old female with a significant past medical history of asthma, fibromyalgia, GERD, diverticulitis, anxiety, HTN, HLD. She is s/p C4- C5 anterior cervical discectomy and fusion, partial corpectomy C5-C6 on 08/24/2019 , hospitalization complicated when patient became hypotensive, hypoxic on 2019 and was transferred from [facility] to [facility] for close monitoring of airway. Chest ct shows pneumonia, and urine cultures +esbl and kleb. Vitals are now stable, mentation back to baseline bp now in normal ranges. She is being weaned off oxygen as tolerated. Now on day #4 of ertapenem for esbl/kleb uti. - Current Medication List Current Medications: Active Medications Acetaminophen (Tylenol -) 650 mg PO Q4H PRN PRN Reason: PAIN LEVEL 3-5 Last Admin: 09/04/19 17:31 Dose: 650 mg Albuterol/Ipratropium (Duoneb -) 1 amp NEB Q4H PRN PRN Reason: SHORTNESS OF BREATH Last Admin: 08/31/19 21:20 Dose: 1 amp Atorvastatin Calcium (Lipitor -) 40 mg PO [facility] Last Admin: 09/04/19 21:46 Dose: 40 mg Baclofen (Lioresal -) 10 mg PO TID [facility] Last Admin: 09/05/19 06:20 Dose: 10 mg Docusate Sodium (Colace -) 100 mg PO BID [facility] Last Admin: 09/04/19 21:38 Dose: Not Given Gabapentin (Neurontin -) 600 mg PO [facility] Last Admin: 09/04/19 21:45 Dose: 600 mg Ertapenem 1 gm/ Sodium (Chloride) 50 mls @ 100 mls/hr IVPB DAILY [facility] Last Admin: 09/04/19 10:44 Dose: 100 mls/hr Losartan Potassium (Cozaar -) 50 mg PO DAILY [facility] Last Admin: 09/04/19 10:44 Dose: 50 mg Nystatin (Mycostatin Ointment -) 1 applic TP BID [facility] Last Admin: 09/04/19 21:46 Dose: 1 applic Oxycodone HCl (Roxicodone -) 5 mg PO Q4H PRN PRN Reason: PAIN LEVEL 4 - 6 Last Admin: 09/04/19 17:31 Dose: 5 mg Oxycodone HCl (Roxicodone -) 10 mg PO Q6H PRN PRN Reason: PAIN LEVEL 7 - 10 Last Admin: 09/05/19 06:20 Dose: 10 mg Polyethylene Glycol (Miralax (For Daily Use) -) 17 gm PO DAILY [facility] Last Admin: 09/04/19 10:44 Dose: Not Given Primidone (Mysoline -) 50 mg PO [facility] Last Admin: 09/04/19 21:46 Dose: 50 mg Senna (Senna -) 1 tab PO BID [facility] Last Admin: 09/04/19 21:46 Dose: Not Given Sertraline HCl (Zoloft -) 100 mg PO [facility] Last Admin: 09/04/19 21:45 Dose: 100 mg Tetrahydrozoline HCl (Visine -) 1 drop OU QID [facility] Last Admin: 09/04/19 21:46 Dose: 1 drop - Objective Vital Signs: Vital Signs Temperature 97.3 F L 09/05/19 06:00 Pulse Rate 85 09/05/19 06:00 Respiratory Rate 20 09/05/19 06:00 Blood Pressure 156/67 09/05/19 06:00 O2 Sat by Pulse Oximetry (%) 93 L 09/04/19 21:00 Additional Findings/Remarks: Constitutional: Yes: Well Nourished, No Distress, Calm Eyes: Yes: WNL, Conjunctiva Clear HENT: Yes: Other (cervical collar presently off, drsg CDI) Neck: Yes: WNL, Supple, Trachea Midline Cardiovascular: Yes: WNL, Regular Rate and Rhythm Respiratory: Yes: WNL, Regular, CTA Bilaterally Gastrointestinal: Yes: WNL, Normal Bowel Sounds ...Rectal Exam: Yes: Deferred Genitourinary: Yes: WNL Breast(s): Yes: WNL Musculoskeletal: Yes: WNL Extremities: Yes: WNL Edema: No Peripheral Pulses WNL: Yes Integumentary: Yes: WNL Wound/Incision: Yes: Clean/Dry, Dressing Dry and Intact Neurological: Yes: WNL, Alert, Oriented ...Motor Strength: WNL Psychiatric: Yes: WNL Problem List - Problems (1) Bronchiectasis Assessment/Plan: Chest CT shows significant bronchiectasis of right upper lobe with surrounding infiltration, localized bronchiectasis left upper lobe with groundglass infiltrates. on ertapenem day 6/ (until 09/14) Code(s): J47.9 - BRONCHIECTASIS, UNCOMPLICATED (2) COPD (chronic obstructive pulmonary disease) Assessment/Plan: stable c/w inhaled bronchodilators Code(s): J44.9 - CHRONIC OBSTRUCTIVE PULMONARY DISEASE, UNSPECIFIED (3) ESBL (extended spectrum beta-lactamase) producing bacteria infection Assessment/Plan: noted on Ucx day 6 ertaopenem (until 09/14) ID following isolation precautions Code(s): A49.9 - BACTERIAL INFECTION, UNSPECIFIED; Z16.12 - EXTENDED SPECTRUM BETA LACTAMASE (ESBL) RESISTANCE (4) Eye hemorrhage Assessment/Plan: resolved artifical tears as needed Code(s): H57.89 - OTHER SPECIFIED DISORDERS OF EYE AND ADNEXA (5) Hypertension Code(s): I10 - ESSENTIAL (PRIMARY) HYPERTENSION (6) Klebsiella infection Assessment/Plan: c/w ertpenem ID following Code(s): A49.8 - OTHER BACTERIAL INFECTIONS OF UNSPECIFIED SITE (7) Pneumonia Assessment/Plan: RUL infiltrate on CT scan c/w abx supplemental O2 maintain pulse oximetry Code(s): J18.9 - PNEUMONIA, UNSPECIFIED ORGANISM (8) Prophylactic measure Assessment/Plan: FEN Fluids: adequate PO intake Electrolytes: monitor & replete as needed Nutrition: soft diet DVT scd Dispo Maintain as inpatient full code discharge planning Code(s): Z29.9 - ENCOUNTER FOR PROPHYLACTIC MEASURES, UNSPECIFIED (9) S/P cervical discectomy Assessment/Plan: POD#12 s/p anterior cervicaldiscectomy, c4-5 pain management with roxicodone, oxycontin stopped. hard collar in place, can be taken off for small periods as per Dr Tanner +encouraged use of incentive spirometer ambulation, pt/ot therapy Code(s): Z98.890 - OTHER SPECIFIED POSTPROCEDURAL STATES (10) Shortness of breath Assessment/Plan: resolved abg normal, with no co2 retention chest ct w/o contrast 08/19/2019: cardiomegaly, small bilateral pleural effusion, small right lower lobe consolidation, significant bronchiectasis right upper lobe with surrounding infiltration, localized bronchiectasis left upper lobe with ground glass infiltrate. maintain on continuous pulse ox monitoring, as she is being weaned off oxygen airway patent Code(s): R06.02 - SHORTNESS OF BREATH (11) Aspiration into airway Assessment/Plan: MBS (-) aspiration Diet upgraded with compensatory swallowing rec made Code(s): T17.908A - UNSP FB IN RESP TRACT, PART UNSP CAUSING OTH INJURY, INIT Visit type - Emergency Visit Emergency Visit: Yes ED Registration Date: 08/24/19 Care time: The patient presented to the Emergency Department on the above date and was hospitalized for further evaluation of their emergent condition. - New Patient This patient is new to me today: No - Critical Care Critical Care patient: No - Discharge Referral Referred to [facility] Med P.C.: No
[2019-09-05 08:42] LABS: ALBUMIN 3.3 g/dl (3.4-5.0); BILIRUBIN,TOTAL 0.4 mg/dL (0.2-1); BLOOD UREA NITROGEN 15.9 mg/dL (7-18); CALCIUM 9.4 mg/dL (8.5-10.1); CREATININE 0.7 mg/dL (0.55-1.3); MAGNESIUM 2.1 mg/dL (1.8-2.4); POTASSIUM 5.4 mmol/L (3.5-5.1); TOT PROT 7.5 g/dl (6.4-8.2)
[2019-09-05] MEDS ORDERED: PT OWN MED DRAWER 7, Y5N ONE ×2 (09:40→21:05)
[2019-09-05] MEDS: ERTAPENEM SODIUM 1 GM in SODIUM CHLORIDE 50 ML IVPB SCH (09:48)
[2019-09-05] MEDS: LOSARTAN POTASSIUM 50 MG TABLET (FP) PO SCH (09:49)
[2019-09-05] MEDS: DOCUSATE SODIUM 100 MG CAPSULE (FP) PO SCH ×3 (09:49→21:47)
[2019-09-05] MEDS: SENNOSIDES 8.6MG TABLET (FP) PO SCH ×3 (09:49→21:48)
[2019-09-05] MEDS: POLYETHYLENE GLYCOL 3350 119 GM BTL PO SCH (09:49)
[2019-09-05] MEDS: NYSTATIN 100000 UNIT/GM TOPICAL OINTMENT 15 GM TUBE TP SCH ×2 (09:50→23:15)
[2019-09-05] MEDS: TETRAHYDROZOLINE HCL EYE DROPS OU SCH ×5 (09:50→21:48)
--- NOTE | 2019-09-05 12:04 | PN ---
Progress Note (short form) - Note Progress Note: s:no chest pain, palps, dizziness, dyspnea Current Medications Generic Name Dose Route Start Last Admin Trade Name Freq PRN Reason Stop Dose Admin Acetaminophen 650 mg 08/29/19 02:41 09/04/19 17:31 Tylenol - PO 650 mg Q4H PRN Administration PAIN LEVEL 3-5 Albuterol/Ipratropium 1 amp 08/29/19 02:41 08/31/19 21:20 Duoneb - NEB 1 amp Q4H PRN Administration SHORTNESS OF BREATH Atorvastatin Calcium 40 mg 08/29/19 22:00 09/04/19 21:46 Lipitor - PO 40 mg HS ERIC Administration Baclofen 10 mg 08/29/19 06:00 09/05/19 06:20 Lioresal - PO 10 mg TID ERIC Administration Docusate Sodium 100 mg 08/29/19 10:00 09/04/19 21:38 Colace - PO Not Given BID ERIC Gabapentin 600 mg 08/29/19 22:00 09/04/19 21:45 Neurontin - PO 600 mg HS ERIC Administration Ertapenem 1 gm/ Sodium 50 mls @ 100 mls/hr 08/31/19 15:15 09/05/19 09:48 Chloride IVPB 100 mls/hr DAILY ERIC Administration Losartan Potassium 50 mg 08/29/19 10:00 09/05/19 09:49 Cozaar - PO 50 mg DAILY ERIC Administration Nystatin 1 applic 08/29/19 10:00 09/05/19 09:50 Mycostatin Ointment - TP 1 applic BID ERIC Administration Oxycodone HCl 5 mg 08/30/19 10:57 09/04/19 17:31 Roxicodone - PO 5 mg Q4H PRN Administration PAIN LEVEL 4 - 6 Oxycodone HCl 10 mg 09/04/19 17:26 09/05/19 06:20 Roxicodone - PO 10 mg Q6H PRN Administration PAIN LEVEL 7 - 10 Polyethylene Glycol 17 gm 08/29/19 10:00 09/05/19 09:49 Miralax (For Daily Use) - PO Not Given DAILY ERIC Primidone 50 mg 08/29/19 22:00 09/04/19 21:46 Mysoline - PO 50 mg HS ERIC Administration Senna 1 tab 08/29/19 10:00 09/05/19 09:59 Senna - PO Not Given BID ERIC Sertraline HCl 100 mg 08/29/19 22:00 09/04/19 21:45 Zoloft - PO 100 mg HS ERIC Administration Tetrahydrozoline HCl 1 drop 08/29/19 10:00 09/05/19 09:58 Visine - OU Not Given QID ERIC Vital Signs Period Temp Pulse Resp BP Sys/Murray Pulse Ox Last 24 Hr 97.3 F-98.1 F 66-93 103-156/44-67 93 Constitutional: Yes: No Distress, Calm Eyes: Yes: Conjunctiva Clear Respiratory: Yes: Regular, CTA Bilaterally Gastrointestinal: Yes: Normal Bowel Sounds, Soft Cardiovascular: Yes: Regular Rate and Rhythm JVD: No Heart Sounds: Yes: S1, S2 Musculoskeletal: No: Back Pain Extremities: No: Cold Edema: No Integumentary: No: Jaundice Neurological: Yes: Alert, Oriented Psychiatric: No: Agitated CBC, BMP 09/05/19 06:15 09/05/19 06:15 Assessment/Plan EKG: sinus, old inf infarct, nonspecific ST changes - no prior CT chest cardiomegal, sm gennaro pleural effusions, sm RLL consolidation, bronchiectasis of RUL and FELTON with infiltrate tele: sinus echo 08/2019 tds, nl LV/RV, LA mildly dilated, mid TR, tr AR abnormal EKG - no prior EKG - can obtain old EKG from Dr. Gonzalez's office - trop neg x 3, less likely ACS - echo unremarkable, defer further cardiac workup PNA, shortness of breath, bronchiectasis - manage per primary - received IV lasix x 3 doses - appears euvolemic, defer diuresis cervical discectomy and fusion of C4/5 - manage per surgery COPD - manage per primary, pulm HTN - cont current meds HLD - cont statin dc tele
--- NOTE | 2019-09-05 13:04 | PN ---
Progress Note, Physician History of Present Illness: Pt states she feels well. Denies SOB/CP. no dysuria. Remains afebrile. Tolerating antibiotics. - Current Medication List Current Medications: Active Medications Acetaminophen (Tylenol -) 650 mg PO Q4H PRN PRN Reason: PAIN LEVEL 3-5 Last Admin: 09/04/19 17:31 Dose: 650 mg Albuterol/Ipratropium (Duoneb -) 1 amp NEB Q4H PRN PRN Reason: SHORTNESS OF BREATH Last Admin: 08/31/19 21:20 Dose: 1 amp Atorvastatin Calcium (Lipitor -) 40 mg PO [facility] Last Admin: 09/04/19 21:46 Dose: 40 mg Baclofen (Lioresal -) 10 mg PO TID [facility] Last Admin: 09/05/19 06:20 Dose: 10 mg Docusate Sodium (Colace -) 100 mg PO BID [facility] Last Admin: 09/04/19 21:38 Dose: Not Given Gabapentin (Neurontin -) 600 mg PO [facility] Last Admin: 09/04/19 21:45 Dose: 600 mg Ertapenem 1 gm/ Sodium (Chloride) 50 mls @ 100 mls/hr IVPB DAILY [facility] Last Admin: 09/05/19 09:48 Dose: 100 mls/hr Losartan Potassium (Cozaar -) 50 mg PO DAILY [facility] Last Admin: 09/05/19 09:49 Dose: 50 mg Nystatin (Mycostatin Ointment -) 1 applic TP BID [facility] Last Admin: 09/05/19 09:50 Dose: 1 applic Oxycodone HCl (Roxicodone -) 5 mg PO Q4H PRN PRN Reason: PAIN LEVEL 4 - 6 Last Admin: 09/04/19 17:31 Dose: 5 mg Oxycodone HCl (Roxicodone -) 10 mg PO Q6H PRN PRN Reason: PAIN LEVEL 7 - 10 Last Admin: 09/05/19 12:19 Dose: 10 mg Polyethylene Glycol (Miralax (For Daily Use) -) 17 gm PO DAILY [facility] Last Admin: 09/05/19 09:49 Dose: Not Given Primidone (Mysoline -) 50 mg PO [facility] Last Admin: 09/04/19 21:46 Dose: 50 mg Senna (Senna -) 1 tab PO BID [facility] Last Admin: 09/05/19 09:59 Dose: Not Given Sertraline HCl (Zoloft -) 100 mg PO HS [facility] Last Admin: 09/04/19 21:45 Dose: 100 mg Tetrahydrozoline HCl (Visine -) 1 drop OU QID [facility] Last Admin: 09/05/19 09:58 Dose: Not Given - Objective Vital Signs: Vital Signs Temperature 97.6 F 09/05/19 10:00 Pulse Rate 76 09/05/19 10:00 Respiratory Rate 20 09/05/19 12:31 Blood Pressure 118/64 09/05/19 10:00 O2 Sat by Pulse Oximetry (%) 95 09/05/19 12:31 Constitutional: Yes: No Distress, Calm Cardiovascular: Yes: Regular Rate and Rhythm Respiratory: Yes: CTA Bilaterally Gastrointestinal: Yes: Normal Bowel Sounds, Soft Genitourinary: Yes: WNL Extremities: Yes: WNL Integumentary: Yes: WNL Neurological: Yes: Alert Labs: CBC, BMP 09/05/19 06:15 09/05/19 06:15 Microbiology 08/28/19 10:35 Blood - Peripheral Venous Blood Culture - Final NO GROWTH AFTER 5 DAYS INCUBATION 08/28/19 10:35 Blood - Peripheral Venous Blood Culture - Final NO GROWTH AFTER 5 DAYS INCUBATION 08/29/19 09:30 Urine - Urine Clean Catch Urine Culture - Final Escherichia Coli Esbl Machine Deburrer Klebsiella Pneumoniae 08/25/19 07:25 Sputum - Expectorated Gram Stain - Final 08/25/19 07:25 Sputum - Expectorated Sputum Culture - Final NORMAL RESPIRATORY RAYNE 08/25/19 09:00 Urine - Urine Clean Catch Legionella Antigen - Final 08/25/19 09:00 Urine - Urine Clean Catch Streptococcus pneumoniae Antigen ( M - Final Problem List - Problems (1) Bronchiectasis Code(s): J47.9 - BRONCHIECTASIS, UNCOMPLICATED (2) COPD (chronic obstructive pulmonary disease) Code(s): J44.9 - CHRONIC OBSTRUCTIVE PULMONARY DISEASE, UNSPECIFIED (3) ESBL (extended spectrum beta-lactamase) producing bacteria infection Code(s): A49.9 - BACTERIAL INFECTION, UNSPECIFIED; Z16.12 - EXTENDED SPECTRUM BETA LACTAMASE (ESBL) RESISTANCE (4) Eye hemorrhage Code(s): H57.89 - OTHER SPECIFIED DISORDERS OF EYE AND ADNEXA (5) S/P cervical discectomy Code(s): Z98.890 - OTHER SPECIFIED POSTPROCEDURAL STATES (6) Shortness of breath Code(s): R06.02 - SHORTNESS OF BREATH Assessment/Plan -- continue Ertapenem (to complete 14 day course) -- monitor vitals Pt is currently afebrile, stable
--- NOTE | 2019-09-05 13:38 | PN ---
Progress Note (short form) - Note Progress Note: Much improved Neuro Fully intact Wound dry Voice and pharyngeal function normal Medical issues resolving WCC Down PLAN Continue medical mx Continue pain MX PT Mobilize D/C Saturday with PICC line and antibiotics See in the office in 2 weeks [facility] [phone]
[2019-09-05] MEDS: ATORVASTATIN CA 40 MG TABLET (FP) PO SCH (21:47)
[2019-09-05] MEDS: PRIMIDONE 50 MG TABLET PO SCH (21:47)
[2019-09-05] MEDS: SERTRALINE HCL 50 MG TABLET (FP) PO SCH (21:48)
[2019-09-05] MEDS: GABAPENTIN 300 MG CAPSULE PO SCH (21:48)
[2019-09-06] MEDS: ACETAMINOPHEN 325 MG TABLET (FP) PO PRN (04:07)
[2019-09-06] MEDS: oxyCODONE HCL 5 MG TABLET PO PRN ×4 (04:07→22:17)
[2019-09-06] MEDS: BACLOFEN 10 MG TABLET (FP) PO SCH ×3 (06:45→22:16)
[2019-09-06 07:26] LABS: BASO % 0.7 % (0-2.0); EOS % 2.3 % (0-4.5); HEMATOCRIT 42.9 % (32.4-45.2); MCHC 32.7 g/dl (32.0-36.0); MEAN CELL VOLUME 88.6 fl (80-96); MEAN PLT VOLUME 9.3 fl (7.5-11.1); MONO % 6.2 % (3.8-10.2); NEUT % 61.8 % (42.8-82.8); PLATELET COUNT 390 K/MM3 (134-434); RBC 4.84 M/mm3 (3.60-5.2); RDW 15.4 % (11.6-15.6); WHITE BLOOD COUNT 9.9 K/mm3 (4.0-10.0)
[2019-09-06 07:40] LABS: BILIRUBIN,TOTAL 0.3 mg/dL (0.2-1); BLOOD UREA NITROGEN 14.4 mg/dL (7-18); CALCIUM 8.7 mg/dL (8.5-10.1); CREATININE 0.7 mg/dL (0.55-1.3); MAGNESIUM 1.9 mg/dL (1.8-2.4); POTASSIUM 4.7 mmol/L (3.5-5.1); TOT PROT 6.2 g/dl (6.4-8.2)
--- NOTE | 2019-09-06 07:43 | PN ---
Progress Note, Physician Chief Complaint: No complaints offered. Much improved Not requiring O2. Insurance clearance pending for home infusion therapy. Needs IV ertapenem x 2 weeks until 09/14 History of Present Illness: Patient is a 69 year old female with a significant past medical history of asthma, fibromyalgia, GERD, diverticulitis, anxiety, HTN, HLD. She is s/p C4- C5 anterior cervical discectomy and fusion, partial corpectomy C5-C6 on 08/24/2019 , hospitalization complicated when patient became hypotensive, hypoxic on 2019 and was transferred from [facility] to [facility] [place] for close monitoring of airway. Chest ct shows pneumonia, and urine cultures +esbl and kleb. Vitals are now stable, mentation back to baseline bp now in normal ranges. She is being weaned off oxygen as tolerated. Now on day #4 of ertapenem for esbl/kleb uti. - Current Medication List Current Medications: Active Medications Acetaminophen (Tylenol -) 650 mg PO Q4H PRN PRN Reason: PAIN LEVEL 3-5 Last Admin: 09/06/19 04:07 Dose: 650 mg Albuterol/Ipratropium (Duoneb -) 1 amp NEB Q4H PRN PRN Reason: SHORTNESS OF BREATH Last Admin: 08/31/19 21:20 Dose: 1 amp Atorvastatin Calcium (Lipitor -) 40 mg PO [facility] Last Admin: 09/05/19 21:47 Dose: 40 mg Baclofen (Lioresal -) 10 mg PO TID [facility] Last Admin: 09/06/19 06:45 Dose: 10 mg Docusate Sodium (Colace -) 100 mg PO BID [facility] Last Admin: 09/05/19 21:47 Dose: Not Given Gabapentin (Neurontin -) 600 mg PO [facility] Last Admin: 09/05/19 21:48 Dose: 600 mg Ertapenem 1 gm/ Sodium (Chloride) 50 mls @ 100 mls/hr IVPB DAILY [facility] Last Admin: 09/05/19 09:48 Dose: 100 mls/hr Losartan Potassium (Cozaar -) 50 mg PO DAILY [facility] Last Admin: 09/05/19 09:49 Dose: 50 mg Nystatin (Mycostatin Ointment -) 1 applic TP BID [facility] Last Admin: 09/05/19 23:15 Dose: 1 applic Oxycodone HCl (Roxicodone -) 5 mg PO Q4H PRN PRN Reason: PAIN LEVEL 4 - 6 Last Admin: 09/04/19 17:31 Dose: 5 mg Oxycodone HCl (Roxicodone -) 10 mg PO Q6H PRN PRN Reason: PAIN LEVEL 7 - 10 Last Admin: 09/06/19 04:07 Dose: 10 mg Polyethylene Glycol (Miralax (For Daily Use) -) 17 gm PO DAILY [facility] Last Admin: 09/05/19 09:49 Dose: Not Given Primidone (Mysoline -) 50 mg PO [facility] Last Admin: 09/05/19 21:47 Dose: 50 mg Senna (Senna -) 1 tab PO BID [facility] Last Admin: 09/05/19 21:48 Dose: Not Given Sertraline HCl (Zoloft -) 100 mg PO [facility] Last Admin: 09/05/19 21:48 Dose: 100 mg Tetrahydrozoline HCl (Visine -) 1 drop OU QID [facility] Last Admin: 09/05/19 21:48 Dose: Not Given - Objective Vital Signs: Vital Signs Temperature 97.0 F L 09/06/19 06:00 Pulse Rate 63 09/06/19 06:00 Respiratory Rate 20 09/06/19 06:00 Blood Pressure 117/45 L 09/06/19 06:00 O2 Sat by Pulse Oximetry (%) 92 L 09/05/19 21:00 Additional Findings/Remarks: Constitutional: Yes: Well Nourished, No Distress, Calm Eyes: Yes: WNL, Conjunctiva Clear HENT: Yes: Other (cervical collar presently off, drsg CDI) Neck: Yes: WNL, Supple, Trachea Midline Cardiovascular: Yes: WNL, Regular Rate and Rhythm Respiratory: Yes: WNL, Regular, CTA Bilaterally Gastrointestinal: Yes: WNL, Normal Bowel Sounds ...Rectal Exam: Yes: Deferred Genitourinary: Yes: WNL Breast(s): Yes: WNL Musculoskeletal: Yes: WNL Extremities: Yes: WNL Edema: No Peripheral Pulses WNL: Yes Integumentary: Yes: WNL Wound/Incision: Yes: Clean/Dry, Dressing Dry and Intact Neurological: Yes: WNL, Alert, Oriented ...Motor Strength: WNL Psychiatric: Yes: WNL Labs: CBC, BMP 09/06/19 05:55 09/06/19 05:55 Problem List - Problems (1) Bronchiectasis Assessment/Plan: Chest CT shows significant bronchiectasis of right upper lobe with surrounding infiltration, localized bronchiectasis left upper lobe with groundglass infiltrates. on ertapenem day 7 (until 09/14) Code(s): J47.9 - BRONCHIECTASIS, UNCOMPLICATED (2) COPD (chronic obstructive pulmonary disease) Assessment/Plan: stable c/w inhaled bronchodilators Code(s): J44.9 - CHRONIC OBSTRUCTIVE PULMONARY DISEASE, UNSPECIFIED (3) ESBL (extended spectrum beta-lactamase) producing bacteria infection Assessment/Plan: noted on Ucx day 03/01 ertaopenem (until 09/14) ID following isolation precautions Code(s): A49.9 - BACTERIAL INFECTION, UNSPECIFIED; Z16.12 - EXTENDED SPECTRUM BETA LACTAMASE (ESBL) RESISTANCE (4) Eye hemorrhage Assessment/Plan: resolved artifical tears as needed Code(s): H57.89 - OTHER SPECIFIED DISORDERS OF EYE AND ADNEXA (5) Hypertension Assessment/Plan: BP well controlled c/w norvasc Code(s): I10 - ESSENTIAL (PRIMARY) HYPERTENSION (6) Klebsiella infection Assessment/Plan: c/w ertpenem until 09/14 ID following Code(s): A49.8 - OTHER BACTERIAL INFECTIONS OF UNSPECIFIED SITE (7) Pneumonia Assessment/Plan: RUL infiltrate on CT scan c/w abx supplemental O2 maintain pulse oximetry Code(s): J18.9 - PNEUMONIA, UNSPECIFIED ORGANISM (8) Prophylactic measure Assessment/Plan: FEN Fluids: adequate PO intake Electrolytes: monitor & replete as needed Nutrition: soft diet DVT scd Dispo Maintain as inpatient full code discharge planning to home with infusion therpy-PICC line to be placed in 09/08 Code(s): Z29.9 - ENCOUNTER FOR PROPHYLACTIC MEASURES, UNSPECIFIED (9) S/P cervical discectomy Assessment/Plan: POD#12 s/p anterior cervical discectomy, c4-5 pain management with roxicodone, oxycontin stopped. hard collar in place, can be taken off for small periods as per Dr Tanner +encouraged use of incentive spirometer ambulation, pt/ot therapy Code(s): Z98.890 - OTHER SPECIFIED POSTPROCEDURAL STATES (10) Shortness of breath Assessment/Plan: resolved Code(s): R06.02 - SHORTNESS OF BREATH (11) Aspiration into airway Assessment/Plan: MBS (-) aspiration Diet upgraded with compensatory swallowing rec made Code(s): T17.908A - UNSP FB IN RESP TRACT, PART UNSP CAUSING OTH INJURY, INIT Visit type - Emergency Visit Emergency Visit: Yes ED Registration Date: 08/24/19 Care time: The patient presented to the Emergency Department on the above date and was hospitalized for further evaluation of their emergent condition. - New Patient This patient is new to me today: No - Critical Care Critical Care patient: No - Discharge Referral Referred to [facility] No
[2019-09-06] MEDS: LOSARTAN POTASSIUM 50 MG TABLET (FP) PO SCH (09:58)
[2019-09-06] MEDS: ERTAPENEM SODIUM 1 GM in SODIUM CHLORIDE 50 ML IVPB SCH (09:58)
[2019-09-06] MEDS: NYSTATIN 100000 UNIT/GM TOPICAL OINTMENT 15 GM TUBE TP SCH ×2 (09:59→22:21)
[2019-09-06] MEDS: SENNOSIDES 8.6MG TABLET (FP) PO SCH ×2 (09:59→22:16)
[2019-09-06] MEDS: DOCUSATE SODIUM 100 MG CAPSULE (FP) PO SCH ×2 (10:00→22:16)
[2019-09-06] MEDS: TETRAHYDROZOLINE HCL EYE DROPS OU SCH ×2 (10:01→13:21)
--- NOTE | 2019-09-06 10:28 | PN ---
Progress Note (short form) - Note Progress Note: s:no chest pain, palps, dizziness, dyspnea Current Medications Generic Name Dose Route Start Last Admin Trade Name Freq PRN Reason Stop Dose Admin Acetaminophen 650 mg 08/29/19 02:41 09/06/19 04:07 Tylenol - PO 650 mg Q4H PRN Administration PAIN LEVEL 3-5 Atorvastatin Calcium 40 mg 08/29/19 22:00 09/05/19 21:47 Lipitor - PO 40 mg HS ERIC Administration Baclofen 10 mg 08/29/19 06:00 09/06/19 06:45 Lioresal - PO 10 mg TID ERIC Administration Docusate Sodium 100 mg 08/29/19 10:00 09/06/19 10:00 Colace - PO 100 mg BID ERIC Administration Gabapentin 600 mg 08/29/19 22:00 09/05/19 21:48 Neurontin - PO 600 mg HS ERIC Administration Ertapenem 1 gm/ Sodium 50 mls @ 100 mls/hr 08/31/19 15:15 09/06/19 09:58 Chloride IVPB 100 mls/hr DAILY ERIC Administration Losartan Potassium 50 mg 08/29/19 10:00 09/06/19 09:58 Cozaar - PO 50 mg DAILY ERIC Administration Nystatin 1 applic 08/29/19 10:00 09/06/19 09:59 Mycostatin Ointment - TP 1 applic BID ERIC Administration Oxycodone HCl 5 mg 08/30/19 10:57 09/04/19 17:31 Roxicodone - PO 5 mg Q4H PRN Administration PAIN LEVEL 4 - 6 Oxycodone HCl 10 mg 09/04/19 17:26 09/06/19 09:58 Roxicodone - PO 10 mg Q6H PRN Administration PAIN LEVEL 7 - 10 Polyethylene Glycol 17 gm 08/29/19 10:00 09/05/19 09:49 Miralax (For Daily Use) - PO Not Given DAILY ERIC Primidone 50 mg 08/29/19 22:00 09/05/19 21:47 Mysoline - PO 50 mg HS ERIC Administration Senna 1 tab 08/29/19 10:00 09/06/19 09:59 Senna - PO 1 tab BID ERIC Administration Sertraline HCl 100 mg 08/29/19 22:00 09/05/19 21:48 Zoloft - PO 100 mg HS ERIC Administration Tetrahydrozoline HCl 1 drop 08/29/19 10:00 09/06/19 10:01 Visine - OU Not Given QID ERIC Vital Signs Period Temp Pulse Resp BP Sys/Murray Pulse Ox Last 24 Hr 97.0 F-98.5 F 63-76 20- 111-138/45-63 92-95 Constitutional: Yes: No Distress, Calm Eyes: Yes: Conjunctiva Clear Respiratory: Yes: Regular, CTA Bilaterally Gastrointestinal: Yes: Normal Bowel Sounds, Soft Cardiovascular: Yes: Regular Rate and Rhythm JVD: No Heart Sounds: Yes: S1, S2 Musculoskeletal: No: Back Pain Extremities: No: Cold Edema: No Integumentary: No: Jaundice Neurological: Yes: Alert, Oriented Psychiatric: No: Agitated CBC, BMP 09/06/19 05:55 09/06/19 05:55 Assessment/Plan EKG: sinus, old inf infarct, nonspecific ST changes - no prior CT chest cardiomegal, sm gennaro pleural effusions, sm RLL consolidation, bronchiectasis of RUL and FELTON with infiltrate echo 08/2019 tds, nl LV/RV, LA mildly dilated, mid TR, tr AR abnormal EKG - no prior EKG - can obtain old EKG from Dr. Gonzalez's office - trop neg x 3, less likely ACS - echo unremarkable, defer further cardiac workup PNA, shortness of breath, bronchiectasis - manage per primary - appears euvolemic, defer diuresis cervical discectomy and fusion of C4/5 - manage per surgery COPD - manage per primary, pulm HTN - cont current meds HLD - cont statin
[2019-09-06] MEDS: POLYETHYLENE GLYCOL 3350 119 GM BTL PO SCH (13:20)
--- NOTE | 2019-09-06 17:42 | PN ---
Progress Note, Physician History of Present Illness: Pt has no new complaints. States she feels well. Remains afebrile. - Current Medication List Current Medications: Active Medications Acetaminophen (Tylenol -) 650 mg PO Q4H PRN PRN Reason: PAIN LEVEL 3-5 Last Admin: 09/06/19 04:07 Dose: 650 mg Atorvastatin Calcium (Lipitor -) 40 mg PO HS [facility] Last Admin: 09/05/19 21:47 Dose: 40 mg Baclofen (Lioresal -) 10 mg PO TID [facility] Last Admin: 09/06/19 13:20 Dose: 10 mg Docusate Sodium (Colace -) 100 mg PO BID [facility] Last Admin: 09/06/19 10:00 Dose: 100 mg Gabapentin (Neurontin -) 600 mg PO [facility] Last Admin: 09/05/19 21:48 Dose: 600 mg Ertapenem 1 gm/ Sodium (Chloride) 50 mls @ 100 mls/hr IVPB DAILY [facility] Last Admin: 09/06/19 09:58 Dose: 100 mls/hr Losartan Potassium (Cozaar -) 50 mg PO DAILY [facility] Last Admin: 09/06/19 09:58 Dose: 50 mg Nystatin (Mycostatin Ointment -) 1 applic TP BID [facility] Last Admin: 09/06/19 09:59 Dose: 1 applic Oxycodone HCl (Roxicodone -) 5 mg PO Q4H PRN PRN Reason: PAIN LEVEL 4 - 6 Last Admin: 09/04/19 17:31 Dose: 5 mg Oxycodone HCl (Roxicodone -) 10 mg PO Q6H PRN PRN Reason: PAIN LEVEL 7 - 10 Last Admin: 09/06/19 15:58 Dose: 10 mg Polyethylene Glycol (Miralax (For Daily Use) -) 17 gm PO DAILY [facility] Last Admin: 09/06/19 13:20 Dose: 17 gm Primidone (Mysoline -) 50 mg PO [facility] Last Admin: 09/05/19 21:47 Dose: 50 mg Senna (Senna -) 1 tab PO BID [facility] Last Admin: 09/06/19 09:59 Dose: 1 tab Sertraline HCl (Zoloft -) 100 mg PO [facility] Last Admin: 09/05/19 21:48 Dose: 100 mg - Objective Vital Signs: Vital Signs Temperature 98.7 F 09/06/19 13:56 Pulse Rate 73 09/06/19 13:56 Respiratory Rate 20 09/06/19 13:56 Blood Pressure 108/57 L 09/06/19 13:56 O2 Sat by Pulse Oximetry (%) 92 L 09/06/19 09:00 Constitutional: Yes: No Distress, Calm Cardiovascular: Yes: Regular Rate and Rhythm Respiratory: Yes: Regular Gastrointestinal: Yes: Normal Bowel Sounds, Soft Genitourinary: Yes: WNL Integumentary: Yes: WNL Neurological: Yes: Alert, Oriented Labs: CBC, BMP 09/06/19 05:55 09/06/19 05:55 Microbiology 08/28/19 10:35 Blood - Peripheral Venous Blood Culture - Final NO GROWTH AFTER 5 DAYS INCUBATION 08/28/19 10:35 Blood - Peripheral Venous Blood Culture - Final NO GROWTH AFTER 5 DAYS INCUBATION 08/29/19 09:30 Urine - Urine Clean Catch Urine Culture - Final Escherichia Coli Esbl Resin Maker Klebsiella Pneumoniae 08/25/19 07:25 Sputum - Expectorated Gram Stain - Final 08/25/19 07:25 Sputum - Expectorated Sputum Culture - Final NORMAL RESPIRATORY RAYNE 08/25/19 09:00 Urine - Urine Clean Catch Legionella Antigen - Final 08/25/19 09:00 Urine - Urine Clean Catch Streptococcus pneumoniae Antigen ( M - Final Problem List - Problems (1) Bronchiectasis Code(s): J47.9 - BRONCHIECTASIS, UNCOMPLICATED (2) COPD (chronic obstructive pulmonary disease) Code(s): J44.9 - CHRONIC OBSTRUCTIVE PULMONARY DISEASE, UNSPECIFIED (3) ESBL (extended spectrum beta-lactamase) producing bacteria infection Code(s): A49.9 - BACTERIAL INFECTION, UNSPECIFIED; Z16.12 - EXTENDED SPECTRUM BETA LACTAMASE (ESBL) RESISTANCE (4) Eye hemorrhage Code(s): H57.89 - OTHER SPECIFIED DISORDERS OF EYE AND ADNEXA (5) S/P cervical discectomy Code(s): Z98.890 - OTHER SPECIFIED POSTPROCEDURAL STATES (6) Shortness of breath Code(s): R06.02 - SHORTNESS OF BREATH Assessment/Plan -- continue Ertapenem as discussed -- discharge planning underway -- monitor vitals Pt is currently afebrile, stable
[2019-09-06] MEDS: ATORVASTATIN CA 40 MG TABLET (FP) PO SCH (22:16)
[2019-09-06] MEDS: PRIMIDONE 50 MG TABLET PO SCH (22:16)
[2019-09-06] MEDS: GABAPENTIN 300 MG CAPSULE PO SCH (22:16)
[2019-09-06] MEDS: SERTRALINE HCL 50 MG TABLET (FP) PO SCH (22:16)
[2019-09-07] MEDS: oxyCODONE HCL 5 MG TABLET PO PRN ×4 (04:51→22:50)
[2019-09-07] MEDS: BACLOFEN 10 MG TABLET (FP) PO SCH ×3 (05:09→21:45)
[2019-09-07 07:06] LABS: BASO % 0.7 % (0-2.0); EOS % 2.7 % (0-4.5); HEMATOCRIT 40.2 % (32.4-45.2); HEMOGLOBIN 13.4 GM/dL (10.7-15.3); LYMPH % 30.6 % (8-40); MCH 29.5 pg (25.7-33.7); MCHC 33.3 g/dl (32.0-36.0); MEAN CELL VOLUME 88.7 fl (80-96); MEAN PLT VOLUME 9.3 fl (7.5-11.1); MONO % 6.4 % (3.8-10.2); NEUT % 59.6 % (42.8-82.8); PLATELET COUNT 355 K/MM3 (134-434); RBC 4.54 M/mm3 (3.60-5.2); RDW 14.9 % (11.6-15.6); WHITE BLOOD COUNT 10.8 K/mm3 (4.0-10.0)
[2019-09-07 07:18] LABS: ALBUMIN 2.9 g/dl (3.4-5.0); BILIRUBIN,TOTAL 0.4 mg/dL (0.2-1); BLOOD UREA NITROGEN 11.6 mg/dL (7-18); CALCIUM 8.7 mg/dL (8.5-10.1); CREATININE 0.6 mg/dL (0.55-1.3); POTASSIUM 4.4 mmol/L (3.5-5.1); TOT PROT 6.1 g/dl (6.4-8.2)
[2019-09-07] MEDS: DOCUSATE SODIUM 100 MG CAPSULE (FP) PO SCH ×2 (10:11→21:45)
[2019-09-07] MEDS: SENNOSIDES 8.6MG TABLET (FP) PO SCH ×2 (10:11→21:45)
[2019-09-07] MEDS: ERTAPENEM SODIUM 1 GM in SODIUM CHLORIDE 50 ML IVPB SCH (10:12)
[2019-09-07] MEDS: LOSARTAN POTASSIUM 50 MG TABLET (FP) PO SCH (10:12)
[2019-09-07] MEDS: NYSTATIN 100000 UNIT/GM TOPICAL OINTMENT 15 GM TUBE TP SCH ×2 (10:13→21:46)
[2019-09-07] MEDS: POLYETHYLENE GLYCOL 3350 119 GM BTL PO SCH (10:13)
--- NOTE | 2019-09-07 10:51 | PN ---
Progress Note (short form) - Note Progress Note: s:no chest pain, palps, dizziness, dyspnea Current Medications Generic Name Dose Route Start Last Admin Trade Name Freq PRN Reason Stop Dose Admin Acetaminophen 650 mg 08/29/19 02:41 09/06/19 04:07 Tylenol - PO 650 mg Q4H PRN Administration PAIN LEVEL 3-5 Atorvastatin Calcium 40 mg 08/29/19 22:00 09/06/19 22:16 Lipitor - PO 40 mg HS ERIC Administration Baclofen 10 mg 08/29/19 06:00 09/07/19 05:09 Lioresal - PO 10 mg TID ERIC Administration Docusate Sodium 100 mg 08/29/19 10:00 09/07/19 10:11 Colace - PO 100 mg BID ERIC Administration Gabapentin 600 mg 08/29/19 22:00 09/06/19 22:16 Neurontin - PO 600 mg HS ERIC Administration Ertapenem 1 gm/ Sodium 50 mls @ 100 mls/hr 08/31/19 15:15 09/07/19 10:12 Chloride IVPB 100 mls/hr DAILY ERIC Administration Losartan Potassium 50 mg 08/29/19 10:00 09/07/19 10:12 Cozaar - PO 50 mg DAILY ERIC Administration Nystatin 1 applic 08/29/19 10:00 09/07/19 10:13 Mycostatin Ointment - TP 1 applic BID ERIC Administration Oxycodone HCl 5 mg 08/30/19 10:57 09/04/19 17:31 Roxicodone - PO 5 mg Q4H PRN Administration PAIN LEVEL 4 - 6 Oxycodone HCl 10 mg 09/04/19 17:26 09/07/19 10:11 Roxicodone - PO 10 mg Q6H PRN Administration PAIN LEVEL 7 - 10 Polyethylene Glycol 17 gm 08/29/19 10:00 09/07/19 10:13 Miralax (For Daily Use) - PO 17 gm DAILY ERIC Administration Primidone 50 mg 08/29/19 22:00 09/06/19 22:16 Mysoline - PO 50 mg HS ERIC Administration Senna 1 tab 08/29/19 10:00 09/07/19 10:11 Senna - PO 1 tab BID ERIC Administration Sertraline HCl 100 mg 08/29/19 22:00 09/06/19 22:16 Zoloft - PO 100 mg HS ERIC Administration Vital Signs Period Temp Pulse Resp BP Sys/Murray Pulse Ox Last 24 Hr 97.6 F-98.7 F 66-131 20-20 108-135/52-63 93 Constitutional: Yes: No Distress, Calm Eyes: Yes: Conjunctiva Clear Respiratory: Yes: Regular, CTA Bilaterally Gastrointestinal: Yes: Normal Bowel Sounds, Soft Cardiovascular: Yes: Regular Rate and Rhythm JVD: No Heart Sounds: Yes: S1, S2 Musculoskeletal: No: Back Pain Extremities: No: Cold Edema: No Integumentary: No: Jaundice Neurological: Yes: Alert, Oriented Psychiatric: No: Agitated CBC, BMP 09/07/19 05:10 09/07/19 05:10 Assessment/Plan EKG: sinus, old inf infarct, nonspecific ST changes - no prior CT chest cardiomegal, sm gennaro pleural effusions, sm RLL consolidation, bronchiectasis of RUL and FELTON with infiltrate echo 08/2019 tds, nl LV/RV, LA mildly dilated, mid TR, tr AR abnormal EKG - no prior EKG - can obtain old EKG from Dr. Gonzalez's office - trop neg x 3, less likely ACS - echo unremarkable, defer further cardiac workup PNA, shortness of breath, bronchiectasis - manage per primary - appears euvolemic, defer diuresis cervical discectomy and fusion of C4/5 - manage per surgery COPD - manage per primary, pulm HTN - cont current meds HLD - cont statin
--- NOTE | 2019-09-07 11:48 | DS ---
Physical Exam: SUBJECTIVE: Patient seen and examined at the bedside. awake, alert, speaking in clear sentences, denies shortness of breath. feels well and wants to go home. OBJECTIVE: Patient is a 69 year old female with a significant past medical history of asthma, fibromyalgia, GERD, diverticulitis, anxiety, HTN, HLD. She is s/p C4- C5 anterior cervical discectomy and fusion, partial corpectomy C5-C6 on 08/24/2019 , hospitalization complicated when patient became hypotensive, hypoxic on 2019 and was transferred from [facility] to [facility] for close monitoring of airway. Chest ct shows pneumonia, and urine cultures +esbl and kleb. Vitals are now stable, mentation back to baseline bp now in normal ranges. She is now off oxygen and tolerating room air. On ertapenem for esbl/kleb uti and will be discharged home with PICC line to complete ertapenem on 09/14/2019. for picc line placement today. Vital Signs Period Temp Pulse Resp BP Sys/Murray Pulse Ox Last 24 Hr 97.6 F-98.7 F 66-131 20-20 108-135/52-63 93 PHYSICAL EXAM GENERAL: The patient is awake, alert and oriented x 3 HEAD: Normal with no signs of trauma. right eye hemorrhage resolved. i ENT: Ears normal, nares patent, oropharynx clear without exudates, moist mucous membranes. NECK: Trachea midline, full range of motion, supple. c collar post surgery LUNGS: clear/diminished to auscultation, on room air. HEART: Regular rate and rhythm ABDOMEN: Soft, nontender, nondistended, normoactive bowel sounds, no guarding EXTREMITIES: no edema. NEUROLOGICAL: awake, alert LABS Laboratory Results - last 24 hr 09/06/19 09/07/19 09/07/19 16:46 05:10 05:10 WBC 10.8 H RBC 4.54 Hgb 13.4 Hct 40.2 MCV 88.7 MCH 29.5 MCHC 33.3 RDW 14.9 Plt Count 355 MPV 9.3 Absolute Neuts (auto) 6.5 Neutrophils % 59.6 Lymphocytes % 30.6 Monocytes % 6.4 Eosinophils % 2.7 Basophils % 0.7 Nucleated RBC % 0 Sodium 141 Potassium 4.4 Chloride 107 Carbon Dioxide 27 Anion Gap 6 L BUN 11.6 Creatinine 0.6 Est GFR (CKD-EPI)AfAm 108.55 Est GFR (CKD-EPI)NonAf 93.66 POC Glucometer 157 Random Glucose 93 Calcium 8.7 Magnesium 2.0 Total Bilirubin 0.4 AST 28 ALT 32 Alkaline Phosphatase 99 Total Protein 6.1 L Albumin 2.9 L 09/07/19 06:08 WBC RBC Hgb Hct MCV MCH MCHC RDW Plt Count MPV Absolute Neuts (auto) Neutrophils % Lymphocytes % Monocytes % Eosinophils % Basophils % Nucleated RBC % Sodium Potassium Chloride Carbon Dioxide Anion Gap BUN Creatinine Est GFR (CKD-EPI)AfAm Est GFR (CKD-EPI)NonAf POC Glucometer 103 Random Glucose Calcium Magnesium Total Bilirubin AST ALT Alkaline Phosphatase Total Protein Albumin HOSPITAL COURSE: Date of Admission:08/24/19 Date of Discharge: 09/07/19 Minutes to complete discharge: 40 Discharge Summary Problems reviewed: Yes Reason For Visit: SPINAL ENTHESOPATHY, CERVICAL REGION Current Active Problems [place] (acute kidney injury) (Acute) Acute metabolic encephalopathy (Acute) Aspiration into airway (Acute) Bronchiectasis (Acute) COPD (chronic obstructive pulmonary disease) (Acute) DVT prophylaxis (Acute) ESBL (extended spectrum beta-lactamase) producing bacteria infection (Acute) Eye hemorrhage (Acute) Hypertension (Acute) Klebsiella infection (Acute) Pneumonia (Acute) Prophylactic measure (Acute) S/P cervical discectomy (Acute) Shortness of breath (Acute) Condition: Improved - Instructions Diet, Activity, Other Instructions: Mrs Ulrich: You will be discharged home today with a PICC line to continue your antibiotics. Please follow up with Dr. Tanner on discharge by calling his office for an appointment. During your hospital stay you developed a pneumonia and a urinary tract infection (ESBL and klebsiella). You will need treatment with IV antibiotics for a total of 14 days to complete on 09/14/2019. MEDICATIONS Please continue to take your home medications as prescribed. There was some changes: oxycodone 10mg q6 H as needed for pain. DIET Continue your home diet Referrals: Blanco Tanner MD [Staff Physician] - (f/u [facility] [place] office 09/03/2019; call for appointment; .) Disposition: HOME - Home Medications Comprehensive Discharge Medication List: Ambulatory Orders Atorvastatin Ca [Lipitor] 40 mg PO HS 08/20/19 Baclofen 10 mg PO TID 08/20/19 Gabapentin 600 mg PO HS 08/20/19 Losartan Potassium 25 mg PO DAILY 08/20/19 Olanzapine [Zyprexa] 100 mg PO HS 08/20/19 Oxycodone HCl/Acetaminophen [Percocet 10-325 mg Tablet] 1 each PO Q6H PRN Primidone 50 mg PO HS 08/20/19 Sertraline HCl [Zoloft -] 100 mg PO HS 08/20/19 Prednisone 10 mg PO DAILY 08/24/19 oxyCODONE HCL [Roxicodone -] 10 mg PO Q6H PRN #30 tablet MDD 40mg 09/06/19 Problem List - Problems (1) Shortness of breath Assessment/Plan: resolved. abg normal, with no co2 retention chest ct w/o contrast 08/19/2019: cardiomegaly, small bilateral pleural effusion, small right lower lobe consolidation, significant bronchiectasis right upper lobe with surrounding infiltration, localized bronchiectasis left upper lobe with ground glass infiltrate. on ertapenem airway patent Code(s): R06.02 - SHORTNESS OF BREATH (2) Pneumonia Assessment/Plan: chest ct shows significant bronchiectasis right upper lobe with surrounding infiltration, localized bronchiectasis left upper lobe with groundglass infiltrate on ertapenem per ID. Code(s): J18.9 - PNEUMONIA, UNSPECIFIED ORGANISM (3) Bronchiectasis Assessment/Plan: chest ct shows significant bronchiectasis of right upper lobe with surrounding infiltration, localized bronchiectasis left upper lobe with groundglass infiltrates. on ertapenem Code(s): J47.9 - BRONCHIECTASIS, UNCOMPLICATED (4) Klebsiella infection Assessment/Plan: on ertapenem to complete 14 days total on 09/14/2019. for picc line placement prior to discharge home. Code(s): A49.8 - OTHER BACTERIAL INFECTIONS OF UNSPECIFIED SITE (5) ESBL (extended spectrum beta-lactamase) producing bacteria infection Assessment/Plan: on ertapenem to complete 14 days total on 09/14/2019. for picc line placement prior to discharge home. Code(s): A49.9 - BACTERIAL INFECTION, UNSPECIFIED; Z16.12 - EXTENDED SPECTRUM BETA LACTAMASE (ESBL) RESISTANCE (6) Acute metabolic encephalopathy Assessment/Plan: resolved Code(s): G93.41 - METABOLIC ENCEPHALOPATHY (7) S/P cervical discectomy Assessment/Plan: s/p ant cervical discectomy, c4-5 previously on tramadol, oxycodone and oxycontin but narcotics cut back for lethargy, now on oxycodone 5 or 10 depending on pain scale, stopped oxycontin. hard collar in place. +encouraged use of incentive spirometer ambulation, pt/ot therapy Code(s): Z98.890 - OTHER SPECIFIED POSTPROCEDURAL STATES (8) COPD (chronic obstructive pulmonary disease) Assessment/Plan: on duonebs as needed, not in exacerbation Code(s): J44.9 - CHRONIC OBSTRUCTIVE PULMONARY DISEASE, UNSPECIFIED (9) Hypertension Assessment/Plan: on cozaar with parameters to hold if systolic <100, bp stable. Code(s): I10 - ESSENTIAL (PRIMARY) HYPERTENSION (10) Eye hemorrhage Assessment/Plan: resolved. unknown cause, no vision problems, no eye pain. no recent eye surgery. continue saline drops qid Code(s): H57.89 - OTHER SPECIFIED DISORDERS OF EYE AND ADNEXA (11) [place] (acute kidney injury) Assessment/Plan: resolved Code(s): N17.9 - ACUTE KIDNEY FAILURE, UNSPECIFIED (12) DVT prophylaxis Assessment/Plan: scds/ambulation no chemical a/c 2/2 to recent surgery Code(s): Z29.9 - ENCOUNTER FOR PROPHYLACTIC MEASURES, UNSPECIFIED (13) Prophylactic measure Assessment/Plan: fen tolerating po monitor electrolytes soft diet/thin liquids full code Code(s): Z29.9 - ENCOUNTER FOR PROPHYLACTIC MEASURES, UNSPECIFIED This patient is new to me today: No Emergency Visit: Yes ED Registration Date: 08/24/19 Care time: The patient presented to the Emergency Department on the above date and was hospitalized for further evaluation of their emergent condition. Critical Care patient: No - Discharge Referral Referred to [facility] Med P.C.: No
--- NOTE | 2019-09-07 15:17 | PN ---
Progress Note, Physician History of Present Illness: stable no new issues - Current Medication List Current Medications: Active Medications Acetaminophen (Tylenol -) 650 mg PO Q4H PRN PRN Reason: PAIN LEVEL 3-5 Last Admin: 09/06/19 04:07 Dose: 650 mg Atorvastatin Calcium (Lipitor -) 40 mg PO HS [facility] Last Admin: 09/06/19 22:16 Dose: 40 mg Baclofen (Lioresal -) 10 mg PO TID [facility] Last Admin: 09/07/19 13:15 Dose: 10 mg Docusate Sodium (Colace -) 100 mg PO BID [facility] Last Admin: 09/07/19 10:11 Dose: 100 mg Gabapentin (Neurontin -) 600 mg PO [facility] Last Admin: 09/06/19 22:16 Dose: 600 mg Ertapenem 1 gm/ Sodium (Chloride) 50 mls @ 100 mls/hr IVPB DAILY [facility] Last Admin: 09/07/19 10:12 Dose: 100 mls/hr Losartan Potassium (Cozaar -) 50 mg PO DAILY [facility] Last Admin: 09/07/19 10:12 Dose: 50 mg Nystatin (Mycostatin Ointment -) 1 applic TP BID [facility] Last Admin: 09/07/19 10:13 Dose: 1 applic Oxycodone HCl (Roxicodone -) 5 mg PO Q4H PRN PRN Reason: PAIN LEVEL 4 - 6 Last Admin: 09/04/19 17:31 Dose: 5 mg Oxycodone HCl (Roxicodone -) 10 mg PO Q6H PRN PRN Reason: PAIN LEVEL 7 - 10 Last Admin: 09/07/19 10:11 Dose: 10 mg Polyethylene Glycol (Miralax (For Daily Use) -) 17 gm PO DAILY [facility] Last Admin: 09/07/19 10:13 Dose: 17 gm Primidone (Mysoline -) 50 mg PO [facility] Last Admin: 09/06/19 22:16 Dose: 50 mg Senna (Senna -) 1 tab PO BID [facility] Last Admin: 09/07/19 10:11 Dose: 1 tab Sertraline HCl (Zoloft -) 100 mg PO [facility] Last Admin: 09/06/19 22:16 Dose: 100 mg - Objective Vital Signs: Vital Signs Temperature 98 F 09/07/19 14:34 Pulse Rate 63 01/20/20 14:34 Respiratory Rate 20 09/07/20 14:34 Blood Pressure 134/59 L 09/07/19 14:34 O2 Sat by Pulse Oximetry (%) 93 L 09/07/19 09:00 Constitutional: Yes: No Distress, Calm Cardiovascular: Yes: S1, S2 Respiratory: Yes: Regular, CTA Bilaterally Gastrointestinal: Yes: Normal Bowel Sounds, Soft Musculoskeletal: Yes: WNL Extremities: Yes: WNL Neurological: Yes: Alert, Oriented Psychiatric: Yes: Alert, Oriented Labs: CBC, BMP 09/07/19 05:10 09/07/19 05:10 Assessment/Plan Problem List - Problems (1) S/P cervical discectomy Code(s): Z98.890 - OTHER SPECIFIED POSTPROCEDURAL STATES (2) COPD (chronic obstructive pulmonary disease) Code(s): J44.9 - CHRONIC OBSTRUCTIVE PULMONARY DISEASE, UNSPECIFIED (3) Hypertension Code(s): I10 - ESSENTIAL (PRIMARY) HYPERTENSION (4) Eye hemorrhage Code(s): H57.89 - OTHER SPECIFIED DISORDERS OF EYE AND ADNEXA (5) hypotension 6 hypoxia 7 infiltrate in the lung plan continue current mgmt resp support abx complete 2 week course rest as per the team
[2019-09-07] MEDS ORDERED: PT OWN MED DRAWER 7, Y5N ONE (21:02)
[2019-09-07] MEDS: SERTRALINE HCL 50 MG TABLET (FP) PO SCH (21:45)
[2019-09-07] MEDS: ATORVASTATIN CA 40 MG TABLET (FP) PO SCH (21:45)
[2019-09-07] MEDS: GABAPENTIN 300 MG CAPSULE PO SCH (21:45)
[2019-09-07] MEDS: PRIMIDONE 50 MG TABLET PO SCH (21:46)
[2019-09-07] MEDS ORDERED: OLANZapine 10 MG TABLET PO SCH (22:00)
[2019-09-08] MEDS: oxyCODONE HCL 5 MG TABLET PO PRN ×3 (06:17→15:56)
[2019-09-08] MEDS: BACLOFEN 10 MG TABLET (FP) PO SCH ×2 (06:17→14:46)
[2019-09-08 06:18] VITALS: TEMP 98.5
[2019-09-08] MEDS: ERTAPENEM SODIUM 1 GM in SODIUM CHLORIDE 50 ML IVPB SCH (09:51)
[2019-09-08] MEDS: DOCUSATE SODIUM 100 MG CAPSULE (FP) PO SCH (09:51)
[2019-09-08] MEDS: LOSARTAN POTASSIUM 50 MG TABLET (FP) PO SCH (09:51)
[2019-09-08] MEDS: POLYETHYLENE GLYCOL 3350 119 GM BTL PO SCH (09:52)
[2019-09-08] MEDS: NYSTATIN 100000 UNIT/GM TOPICAL OINTMENT 15 GM TUBE TP SCH (09:52)
[2019-09-08] MEDS: SENNOSIDES 8.6MG TABLET (FP) PO SCH (09:52)
[2019-09-08] MEDS ORDERED: PT OWN MED DRAWER 7, Y5N ONE (10:28)
[2019-09-08] MEDS: ACETAMINOPHEN 325 MG TABLET (FP) PO PRN ×2 (11:24→15:56)
--- NOTE | 2019-09-08 12:09 | PN ---
Progress Note (short form) - Note Progress Note: s:no chest pain, palps, dizziness, dyspnea Current Medications Acetaminophen (Tylenol -) 650 mg PO Q4H PRN PRN Reason: PAIN LEVEL 3-5 Last Admin: 09/08/19 11:24 Dose: 650 mg Atorvastatin Calcium (Lipitor -) 40 mg PO HS [facility]PLAC[facility] Last Admin: 09/07/19 21:45 Dose: 40 mg Baclofen (Lioresal -) 10 mg PO TID [facility] Last Admin: 09/08/19 06:17 Dose: 10 mg Docusate Sodium (Colace -) 100 mg PO BID [facility] Last Admin: 09/08/19 09:51 Dose: 100 mg Gabapentin (Neurontin -) 600 mg PO [facility] Last Admin: 09/07/19 21:45 Dose: 600 mg Ertapenem 1 gm/ Sodium (Chloride) 50 mls @ 100 mls/hr IVPB DAILY [facility] Last Admin: 09/08/19 09:51 Dose: 100 mls/hr Losartan Potassium (Cozaar -) 50 mg PO DAILY [facility] Last Admin: 09/08/19 09:51 Dose: 50 mg Nystatin (Mycostatin Ointment -) 1 applic TP BID [facility] Last Admin: 09/08/19 09:52 Dose: 1 applic Olanzapine (Zyprexa -) 10 mg PO [facility] Last Admin: 09/07/19 21:46 Dose: 10 mg Oxycodone HCl (Roxicodone -) 5 mg PO Q4H PRN PRN Reason: PAIN LEVEL 4 - 6 Last Admin: 09/08/19 11:24 Dose: 5 mg Oxycodone HCl (Roxicodone -) 10 mg PO Q6H PRN PRN Reason: PAIN LEVEL 7 - 10 Last Admin: 09/08/19 06:17 Dose: 10 mg Polyethylene Glycol (Miralax (For Daily Use) -) 17 gm PO DAILY [facility] Last Admin: 09/08/19 09:52 Dose: 17 gm Primidone (Mysoline -) 50 mg PO [facility] Last Admin: 09/07/19 21:46 Dose: 50 mg Senna (Senna -) 1 tab PO BID [facility] Last Admin: 09/08/19 09:52 Dose: 1 tab Sertraline HCl (Zoloft -) 100 mg PO [facility] Last Admin: 09/07/19 21:45 Dose: 100 mg Vital Signs Period Temp Pulse Resp BP Sys/Murray Pulse Ox Last 24 Hr 98 F-98.5 F 63-116 20-20 118-145/55-61 91-94 Constitutional: Yes: No Distress, Calm Eyes: Yes: Conjunctiva Clear Respiratory: Yes: Regular, CTA Bilaterally Gastrointestinal: Yes: Normal Bowel Sounds, Soft Cardiovascular: Yes: Regular Rate and Rhythm JVD: No Heart Sounds: Yes: S1, S2 Musculoskeletal: No: Back Pain Extremities: No: Cold Edema: No Integumentary: No: Jaundice Neurological: Yes: Alert, Oriented Psychiatric: No: Agitated Assessment/Plan EKG: sinus, old inf infarct, nonspecific ST changes - no prior CT chest cardiomegal, sm gennaro pleural effusions, sm RLL consolidation, bronchiectasis of RUL and FELTON with infiltrate echo 08/2019 tds, nl LV/RV, LA mildly dilated, mid TR, tr AR abnormal EKG - no prior EKG - can obtain old EKG from Dr. Gonzalez's office - trop neg x 3, less likely ACS - echo unremarkable, defer further cardiac workup PNA, shortness of breath, bronchiectasis - manage per primary - appears euvolemic, defer diuresis cervical discectomy and fusion of C4/5 - manage per surgery COPD - manage per primary, pulm HTN - cont current meds HLD - cont statin
--- NOTE | 2019-09-08 13:05 | PN ---
Progress Note, Physician - Current Medication List Current Medications: Active Medications Acetaminophen (Tylenol -) 650 mg PO Q4H PRN PRN Reason: PAIN LEVEL 3-5 Last Admin: 09/08/19 11:24 Dose: 650 mg Atorvastatin Calcium (Lipitor -) 40 mg PO HS [facility] Last Admin: 09/07/19 21:45 Dose: 40 mg Baclofen (Lioresal -) 10 mg PO TID [facility] Last Admin: 09/08/19 06:17 Dose: 10 mg Docusate Sodium (Colace -) 100 mg PO BID [facility] Last Admin: 09/08/19 09:51 Dose: 100 mg Gabapentin (Neurontin -) 600 mg PO [facility] Last Admin: 09/07/19 21:45 Dose: 600 mg Ertapenem 1 gm/ Sodium (Chloride) 50 mls @ 100 mls/hr IVPB DAILY [facility] Last Admin: 09/08/19 09:51 Dose: 100 mls/hr Losartan Potassium (Cozaar -) 50 mg PO DAILY [facility] Last Admin: 09/08/19 09:51 Dose: 50 mg Nystatin (Mycostatin Ointment -) 1 applic TP BID [facility] Last Admin: 09/08/19 09:52 Dose: 1 applic Olanzapine (Zyprexa -) 10 mg PO [facility] Last Admin: 09/07/19 21:46 Dose: 10 mg Oxycodone HCl (Roxicodone -) 5 mg PO Q4H PRN PRN Reason: PAIN LEVEL 4 - 6 Last Admin: 09/08/19 11:24 Dose: 5 mg Oxycodone HCl (Roxicodone -) 10 mg PO Q6H PRN PRN Reason: PAIN LEVEL 7 - 10 Last Admin: 09/08/19 06:17 Dose: 10 mg Polyethylene Glycol (Miralax (For Daily Use) -) 17 gm PO DAILY [facility] Last Admin: 09/08/19 09:52 Dose: 17 gm Primidone (Mysoline -) 50 mg PO [facility] Last Admin: 09/07/19 21:46 Dose: 50 mg Senna (Senna -) 1 tab PO BID [facility] Last Admin: 09/08/19 09:52 Dose: 1 tab Sertraline HCl (Zoloft -) 100 mg PO [facility] Last Admin: 09/07/19 21:45 Dose: 100 mg - Objective Vital Signs: Vital Signs Temperature 98.5 F 09/08/19 06:00 Pulse Rate 116 H 09/08/19 09:11 Respiratory Rate 20 09/08/19 09:00 Blood Pressure 145/56 L 09/08/19 06:00 O2 Sat by Pulse Oximetry (%) 94 L 09/08/19 09:00 Labs: CBC, BMP 09/07/19 05:10 09/07/19 05:10
[2019-09-08 15:46] VITALS: BP 107/55; PULSE 76
--- NOTE | 2019-09-08 15:47 | PN ---
Physical Exam: SUBJECTIVE: Patient seen and examined at the bedside. had picc line placed today. patient explained the reasons she needs home oxygen. OBJECTIVE: Patient is a 69 year old female with a significant past medical history of asthma, fibromyalgia, GERD, diverticulitis, anxiety, HTN, HLD. She is s/p C4- C5 anterior cervical discectomy and fusion, partial corpectomy C5-C6 on 08/24/2019 , hospitalization complicated when patient became hypotensive, hypoxic on 2019 and was transferred from [facility] to [facility] for close monitoring of airway. Chest ct shows pneumonia, and urine cultures +esbl and kleb. Vitals are now stable, mentation back to baseline bp now in normal ranges. She is now off oxygen and tolerating room air. On ertapenem for esbl/kleb uti and will be discharged home with PICC line to complete ertapenem on 09/14/2019. had picc line placement today. Vital Signs Period Temp Pulse Resp BP Sys/Murray Pulse Ox Last 24 Hr 98.0 F-98.5 F 66-116 20-20 107-145/55-61 91-94 GENERAL: The patient is awake, alert and oriented x 3 HEAD: Normal with no signs of trauma. right eye hemorrhage resolved. ENT: Ears normal, nares patent, oropharynx clear without exudates, moist mucous membranes. NECK: Trachea midline, full range of motion, supple. c collar post surgery LUNGS: clear/diminished to auscultation, on room air. HEART: Regular rate and rhythm ABDOMEN: Soft, nontender, nondistended, normoactive bowel sounds, no guarding EXTREMITIES: no edema. NEUROLOGICAL: awake, alert Laboratory Results - last 24 hr 09/07/19 09/08/19 17:05 06:16 POC Glucometer 131 102 Active Medications Generic Name Dose Route Start Last Admin Trade Name Freq PRN Reason Stop Dose Admin Acetaminophen 650 mg 08/29/19 02:41 09/08/19 11:24 Tylenol - PO 650 mg Q4H PRN Administration PAIN LEVEL 3-5 Atorvastatin Calcium 40 mg 08/29/19 22:00 09/07/19 21:45 Lipitor - PO 40 mg HS ERIC Administration Baclofen 10 mg 08/29/19 06:00 09/08/19 14:46 Lioresal - PO 10 mg TID ERIC Administration Docusate Sodium 100 mg 08/29/19 10:00 09/08/19 09:51 Colace - PO 100 mg BID ERIC Administration Gabapentin 600 mg 08/29/19 22:00 09/07/19 21:45 Neurontin - PO 600 mg HS ERIC Administration Ertapenem 1 gm/ Sodium 50 mls @ 100 mls/hr 08/31/19 15:15 09/08/19 09:51 Chloride IVPB 100 mls/hr DAILY ERIC Administration Losartan Potassium 50 mg 08/29/19 10:00 09/08/19 09:51 Cozaar - PO 50 mg DAILY ERIC Administration Nystatin 1 applic 08/29/19 10:00 09/08/19 09:52 Mycostatin Ointment - TP 1 applic BID ERIC Administration Olanzapine 10 mg 09/07/19 22:00 09/07/19 21:46 Zyprexa - PO 10 mg HS ERIC Administration Oxycodone HCl 5 mg 08/30/19 10:57 09/08/19 11:24 Roxicodone - PO 5 mg Q4H PRN Administration PAIN LEVEL 4 - 6 Oxycodone HCl 10 mg 09/04/19 17:26 09/08/19 06:17 Roxicodone - PO 10 mg Q6H PRN Administration PAIN LEVEL 7 - 10 Polyethylene Glycol 17 gm 08/29/19 10:00 09/08/19 09:52 Miralax (For Daily Use) - PO 17 gm DAILY ERIC Administration Primidone 50 mg 08/29/19 22:00 09/07/19 21:46 Mysoline - PO 50 mg HS ERIC Administration Senna 1 tab 08/29/19 10:00 09/08/19 09:52 Senna - PO 1 tab BID ERIC Administration Sertraline HCl 100 mg 08/29/19 22:00 09/07/19 21:45 Zoloft - PO 100 mg HS ERIC Administration ASSESSMENT/PLAN: Problem List - Problems (1) Shortness of breath Assessment/Plan: abg normal, with no co2 retention chest ct w/o contrast 08/19/2019: cardiomegaly, small bilateral pleural effusion, small right lower lobe consolidation, significant bronchiectasis right upper lobe with surrounding infiltration, localized bronchiectasis left upper lobe with ground glass infiltrate. on ertapenem to complete on 09/14/2019 comfortable at rest, desats with ambulation. needs home oxygen which has been arranged. Code(s): R06.02 - SHORTNESS OF BREATH (2) Pneumonia Assessment/Plan: chest ct shows significant bronchiectasis right upper lobe with surrounding infiltration, localized bronchiectasis left upper lobe with groundglass infiltrate on ertapenem per ID. Code(s): J18.9 - PNEUMONIA, UNSPECIFIED ORGANISM (3) Bronchiectasis Assessment/Plan: chest ct shows significant bronchiectasis of right upper lobe with surrounding infiltration, localized bronchiectasis left upper lobe with groundglass infiltrates. on ertapenem Code(s): J47.9 - BRONCHIECTASIS, UNCOMPLICATED (4) Klebsiella infection Assessment/Plan: on ertapenem to complete 14 days total on 09/14/2019. for picc line placement prior to discharge home. Code(s): A49.8 - OTHER BACTERIAL INFECTIONS OF UNSPECIFIED SITE (5) ESBL (extended spectrum beta-lactamase) producing bacteria infection Assessment/Plan: on ertapenem to complete 14 days total on 09/14/2019. picc line placed today. Code(s): A49.9 - BACTERIAL INFECTION, UNSPECIFIED; Z16.12 - EXTENDED SPECTRUM BETA LACTAMASE (ESBL) RESISTANCE (6) Acute metabolic encephalopathy Assessment/Plan: resolved Code(s): G93.41 - METABOLIC ENCEPHALOPATHY (7) S/P cervical discectomy Assessment/Plan: s/p ant cervical discectomy, c4-5 previously on tramadol, oxycodone and oxycontin but narcotics cut back for lethargy, now on oxycodone 5 or 10 depending on pain scale, stopped oxycontin. hard collar in place. +encouraged use of incentive spirometer ambulation, pt/ot therapy Code(s): Z98.890 - OTHER SPECIFIED POSTPROCEDURAL STATES (8) COPD (chronic obstructive pulmonary disease) Assessment/Plan: on duonebs as needed, not in exacerbation Code(s): J44.9 - CHRONIC OBSTRUCTIVE PULMONARY DISEASE, UNSPECIFIED (9) Hypertension Assessment/Plan: on cozaar with parameters to hold if systolic <100, bp stable. Code(s): I10 - ESSENTIAL (PRIMARY) HYPERTENSION (10) Eye hemorrhage Assessment/Plan: resolved. unknown cause, no vision problems, no eye pain. no recent eye surgery. continue saline drops qid Code(s): H57.89 - OTHER SPECIFIED DISORDERS OF EYE AND ADNEXA (11) [place] (acute kidney injury) Assessment/Plan: resolved Code(s): N17.9 - ACUTE KIDNEY FAILURE, UNSPECIFIED (12) DVT prophylaxis Assessment/Plan: scds/ambulation no chemical a/c 2/ to recent surgery Code(s): Z29.9 - ENCOUNTER FOR PROPHYLACTIC MEASURES, UNSPECIFIED (13) Prophylactic measure Assessment/Plan: discharge home Code(s): Z29.9 - ENCOUNTER FOR PROPHYLACTIC MEASURES, UNSPECIFIED Visit type - Emergency Visit Emergency Visit: Yes ED Registration Date: 08/24/19 Care time: The patient presented to the Emergency Department on the above date and was hospitalized for further evaluation of their emergent condition. - New Patient This patient is new to me today: No - Critical Care Critical Care patient: No - Discharge Referral Referred to [facility] Med P.C.: No
== END 2019-09-08 16:29 | disposition home or self-care (01) | DRG 321 ==
LOC: JSAMEDAYSX 09:59 → JICU 18:28 → J8W 08-25 18:15 → J4W 08-28 21:19
PROVIDERS: ADMIT Orthopaedic Surgery Orthopaedic Surgery of the Spine; ATTEND Nurse Practitioner Family
PROC: 0RG10A0 Fusion of Cervical Vertebral Joint with Interbody Fusion Device, Anterior Approach, Anterior Column, Open Approach (ICD-10-PCS; 2019-08-24)
PROC: 0RT30ZZ Resection of Cervical Vertebral Disc, Open Approach (ICD-10-PCS; 2019-08-24)
PROC: B01BZZZ Fluoroscopy of Spinal Cord (ICD-10-PCS; 2019-08-24)
PROC: 4A11X4G Monitoring of Peripheral Nervous Electrical Activity, Intraoperative, External Approach (ICD-10-PCS; 2019-08-24)
PROC: 0RP104Z Removal of Internal Fixation Device from Cervical Vertebral Joint, Open Approach (ICD-10-PCS; principal; 2019-08-24 12:00)
PROC: 02HV33Z Insertion of Infusion Device into Superior Vena Cava, Percutaneous Approach (ICD-10-PCS; 2019-09-08)
DX: M48.02 Spinal stenosis, cervical region (principal); M50.00 Cervical disc disorder with myelopathy, unspecified cervical region; K21.9 Gastro-esophageal reflux disease without esophagitis; I10 Essential (primary) hypertension; E78.5 Hyperlipidemia, unspecified; I95.9 Hypotension, unspecified; J18.9 Pneumonia, unspecified organism; G93.41 Metabolic encephalopathy; J44.9 Chronic obstructive pulmonary disease, unspecified; H57.89 Other specified disorders of eye and adnexa; N17.9 Acute kidney failure, unspecified; N39.0 Urinary tract infection, site not specified; B96.1 Klebsiella pneumoniae [K. pneumoniae] as the cause of diseases classified elsewhere; Z16.12 Extended spectrum beta lactamase (ESBL) resistance; R06.02 Shortness of breath; J45.909 Unspecified asthma, uncomplicated; M79.7 Fibromyalgia; J98.11 Atelectasis; F41.8 Other specified anxiety disorders; M54.12 Radiculopathy, cervical region; M43.12 Spondylolisthesis, cervical region; M53.2X2 Spinal instabilities, cervical region
CPT/HCPCS: 36415; 36569; 36600; 70450-TC; 71045-TC-FY; 71250-TC; 72050-TC-FY; 74230-TC-FY; 76000-TC-FY; 77001-TC-FY; 80053; 81003; 82803; 82962; 83036; 83605; 83735; 84100; 84484; 85025; 86850; 86900; 86901; 87040; 87070; 87086; 87186; 87205; 87804; 87899; 88300-TC; 88304-TC; 92611-GN; 93005; 93010; 93306-TC; 94010; 94640; 94760; 94761; 97116-GP; 97161-GP; C1751; J0131; J0475; J1644; J7030